=== PATIENT | female | born 1965 | race Caucasian/White ===

== ENCOUNTER 2019-01-21 10:59 | Emergency (ER) | payer SELFPAY ==
[~2019-01-21] VITALS: Ht 172.7 cm; Wt 87.3 kg
[~2019-01-21 10:59] MED LIST: ACHD5005 PO; AMOX500C2 PO; CITA20TA4 PO; CLIN-62 PO; CYCL10TA9 PO; HYDR-2997 PO; NAPR-243 PO
[2019-01-21] MEDS ORDERED: KETOROLAC 30 MG/ML VIAL IVP ONE (11:15)
[2019-01-21] MEDS ORDERED: NS IV 1000 ML 1,000 ML IV SCH (11:15)
[2019-01-21 11:19] LABS: BASOPHILS % (AUTO) 0 % (0-10); EOSINOPHILS # (AUTO) 0.4 10^3/uL (0.0-0.3); EOSINOPHILS % (AUTO) 3 % (0-10); HEMATOCRIT 45 % (35-52); HEMOGLOBIN 15.5 G/DL (11.5-16.0); LYMPHOCYTES # (AUTO) 1.5 X 10^3 (1.0-4.0); LYMPHOCYTES % (AUTO) 10 % (12-44); MEAN CORPUSCULAR HEMOGLOBIN 30 PG (25-34); MEAN CORPUSCULAR HGB CONC 35 G/DL (32-36); MEAN CORPUSCULAR VOLUME 85 FL (80-99); MEAN PLATELET VOLUME 11.1 FL (7.4-10.4); MONOCYTES # (AUTO) 0.8 X 10^3 (0.0-1.0); MONOCYTES % (AUTO) 5 % (0-12); NEUTROPHILS # (AUTO) 12.5 X 10^3 (1.8-7.8); NEUTROPHILS % (AUTO) 82 % (42-75); PLATELET COUNT 186 10^3/uL (130-400); RED CELL DISTRIBUTION WIDTH 12.7 % (10.0-14.5); WHITE BLOOD COUNT 15.2 10^3/uL (4.3-11.0)
--- NOTE | 2019-01-21 11:24 | ED General ---
General Stated Complaint: BODY ACHES ALL OVER Source of Information: Patient Exam Limitations: No Limitations History of Present Illness Date Seen by Provider: Jan 21, 2019 Time Seen by Provider: 11:21 Initial Comments ER with reports of body aches all over for about 3 days. She denies cough runny nose or sore throat but has been taking NyQuil to help herself sleep. She reports chills but has not measured her temperature. Reports low back pain. Also has a tender reddened area to the medial right lower leg that started at the same time as the back pain and body aches. SHe denies any nausea vomiting bowel changes or dysuria. She is a diabetic and supposed to take metformin but doesn't because it makes her nauseous and supposed to take Trulicity but didn' t until 2 weeks ago and states that it is supposed to be refrigerated that she has not been refrigerated. Severity: Moderate Associated Systoms: No Cough, No Diaphoresis; Fever/Chills; No Nausea/Vomiting , No Weakness Allergies and Home Medications Allergies Coded Allergies: Aspirin (Unverified Allergy, Mild, UPSET STOMACH, 01/24/09) Codeine (Unverified Allergy, Mild, HIVES, 01/24/09) Home Medications Cephalexin 500 Mg Capsule, 500 MG PO Q6H Prescribed by: DILSHAD JOINER on 01/21/19 1203 Hydrocodone Bit/Acetaminophen 1 Each Tablet, 1-2 EACH PO Q6H PRN Prescribed by: HAYLEY THAKKAR on 10/04/101946 Patient Home Medication List Home Medication List Reviewed: Yes Review of Systems Review of Systems Constitutional: see HPI, chills, malaise, weakness EENTM: see HPI Respiratory: no symptoms reported Cardiovascular: no symptoms reported Genitourinary: no symptoms reported Musculoskeletal: see HPI, back pain Skin: no symptoms reported Psychiatric/Neurological: No Symptoms Reported Hematologic/Lymphatic: No Symptoms Reported Immunological/Allergic: no symptoms reported Past Sxbspvk-Qboriz-Hfnqhy Hx Patient Social History Recent Foreign Travel: No Contact w/Someone Who Travel: No Physical Exam Vital Signs Vital Signs - First Documented 01/21/19 11:03 Temp 98.9 Pulse 112 Resp 16 B/P (MAP) 161/89 (113) Pulse Ox 98 O2 Delivery Room Air Capillary Refill : Height, Weight, BMI Height: 5'8" Weight: 220lbs. oz. 99.082932yn; BMI Method:Stated General Appearance: No Apparent Distress, WD/WN Eyes: Bilateral Eye Normal Inspection, Bilateral Eye PERRL, Bilateral Eye EOMI HEENT: PERRL/EOMI, TMs Normal Neck: Full Range of Motion, Normal Inspection Respiratory: Normal Breath Sounds, No Accessory Muscle Use, No Respiratory Distress Gastrointestinal: Normal Bowel Sounds, Non Tender, Soft Extremity: Normal Capillary Refill, Other (To the anterior right lower leg is thickening brownish discoloration of the skin. Medial to this is an area of erythema with a few petechiae in the center. No lymphangitis, the area is indurated without fluctuance. Very tender to touch.) Neurologic/Psychiatric: Alert, Oriented x3 Skin: Normal Color, Warm/Dry Progress/Results/Core Measures Suspected Sepsis SIRS Temperature: Pulse: Respiratory Rate: Laboratory Tests 01/21/19 11:13: White Blood Count 15.2H Blood Pressure / Mean: Laboratory Tests 01/21/19 11:13: Platelet Count 186 01/21/19 11:45: Creatinine 0.89, Total Bilirubin 0.6 Results/Orders Lab Results Laboratory Tests Test 01/21/19 11:13 01/21/19 11:28 01/21/19 11:45 Range/Units White Blood Count 15.2 H 4.3-11.0 10^3/uL Red Blood Count 5.24 4.35-5.85 10^6/uL Hemoglobin 15.5 11.5-16.0 G/DL Hematocrit 45 35-52 % Mean Corpuscular Volume 85 80-99 FL Mean Corpuscular Hemoglobin 30 25-34 PG Mean Corpuscular Hemoglobin Concent 35 32-36 G/DL Red Cell Distribution Width 12.7 10.0-14.5 % Platelet Count 186 130-400 10^3/uL Mean Platelet Volume 11.1 H 7.4-10.4 FL Neutrophils (%) (Auto) 82 H 42-75 % Lymphocytes (%) (Auto) 10 L 12-44 % Monocytes (%) (Auto) 5 0-12 % Eosinophils (%) (Auto) 3 0-10 % Basophils (%) (Auto) 0 0-10 % Neutrophils # (Auto) 12.5 H 1.8-7.8 X 10^3 Lymphocytes # (Auto) 1.5 1.0-4.0 X 10^3 Monocytes # (Auto) 0.8 0.0-1.0 X 10^3 Eosinophils # (Auto) 0.4 H 0.0-0.3 10^3/uL Basophils # (Auto) 0.0 0.0-0.1 10^3/uL Neutrophils % (Manual) 88 % Lymphocytes % (Manual) 8 % Monocytes % (Manual) 2 % Band Neutrophils 2 % Dohle Bodies SLIGHT Poikilocytosis MODERATE Tear Drop Cells MODERATE Urine Color YELLOW Urine Clarity CLEAR Urine pH 5 5-9 Urine Specific [place] 1.020 1.016-1.022 Urine Protein 2+ H NEGATIVE Urine Glucose (UA) 4+ H NEGATIVE Urine Ketones NEGATIVE NEGATIVE Urine Nitrite POSITIVE H NEGATIVE Urine Bilirubin NEGATIVE NEGATIVE Urine Urobilinogen 4 H NORMAL MG/DL Urine Leukocyte Esterase 2+ H NEGATIVE Urine RBC (Auto) 3+ H NEGATIVE Urine RBC NONE /HPF Urine WBC 25-50 H /HPF Urine Crystals NONE /LPF Urine Bacteria LARGE H /HPF Urine Casts NONE /LPF Urine Mucus NEGATIVE /LPF Urine Culture Indicated YES Urine Opiates Screen NEGATIVE NEGATIVE Urine Oxycodone Screen NEGATIVE NEGATIVE Urine Methadone Screen NEGATIVE NEGATIVE Urine Propoxyphene Screen NEGATIVE NEGATIVE Urine Barbiturates Screen NEGATIVE NEGATIVE Ur Tricyclic Antidepressants Screen NEGATIVE NEGATIVE Urine Phencyclidine Screen NEGATIVE NEGATIVE Urine Amphetamines Screen POSITIVE H NEGATIVE Urine Methamphetamines Screen POSITIVE H NEGATIVE Urine Benzodiazepines Screen NEGATIVE NEGATIVE Urine Cocaine Screen NEGATIVE NEGATIVE Urine Cannabinoids Screen NEGATIVE NEGATIVE Sodium Level 134 L 135-145 MMOL/L Potassium Level 3.6 3.6-5.0 MMOL/L Chloride Level 100 98-107 MMOL/L Carbon Dioxide Level 21 21-32 MMOL/L Anion Gap 13 5-14 MMOL/L Blood Urea Nitrogen 14 7-18 MG/DL Creatinine 0.89 0.60-1.30 MG/DL Estimat Glomerular Filtration Rate > 60 BUN/Creatinine Ratio 16 Glucose Level 280 H 70-105 MG/DL Calcium Level 9.2 8.5-10.1 MG/DL Corrected Calcium 9.4 8.5-10.1 MG/DL Magnesium Level 1.7 L 1.8-2.4 MG/DL Total Bilirubin 0.6 0.1-1.0 MG/DL Aspartate Amino Transf (AST/SGOT) 20 5-34 U/L Alanine Aminotransferase (ALT/SGPT) 33 0-55 U/L Alkaline Phosphatase 78 40-136 U/L Total Creatine Kinase 27 L 29-168 U/L Total Protein 7.3 6.4-8.2 GM/DL Albumin 3.8 3.2-4.5 GM/DL Micro Results Microbiology 01/21/19 Influenza Types A,B Antigen (ALBERTO) - Final, Complete My Orders Orders - DILSHAD JOINER ENGINE TESTING SUPERVISOR Magnesium (01/21/19 11:04) Cbc With Automated Diff (01/21/19 11:04) Creatine Kinase (01/21/19 11:04) Comprehensive Metabolic Panel (01/21/19 11:04) Ua Culture If Indicated (01/21/19 11:04) Influenza A And B Antigens (01/21/19 11:04) Ns Iv 1000 Ml (Sodium Chloride 0.9%) (01/21/19 11:15) Ketorolac Injection (Toradol Injection) (01/21/19 11:15) Manual Differential (01/21/19 11:13) Chest 1 View, Ap/Pa Only (01/21/19 11:27) Drug Screen Stat (Urine) (01/21/19 11:27) Urine Culture (01/21/19 11:28) Medications Given in ED Current Medications Medications Dose Ordered Sig/Rhonda Route Start Time Stop Time Status Last Admin Dose Admin Ketorolac Tromethamine 15 mg ONCE ONCE IVP 01/21/19 11:15 01/21/19 11:16 DC 01/21/19 11:38 15 MG Vital Signs/I&O 01/21/19 11:03 Temp 98.9 Pulse 112 Resp 16 B/P (MAP) 161/89 (113) Pulse Ox 98 O2 Delivery Room Air Capillary Refill : Departure Impression Primary Impression: Cellulitis of right leg Disposition: HOME, SELF-CARE Condition: Stable Departure-Patient Inst. Decision time for Depature: 12:01 Referrals: SYLVIA HARGROVE MD (PCP) Primary Care Physician [facility] (Family) Primary Care Physician Patient Instructions: Cellulitis (Skin Infection), Adult (DC) Add. Discharge Instructions: 1. Antibiotics as directed 2. Return to ER for any concerns 3. See her doctor on Wednesday for recheck. Scripts Cephalexin (Keflex) 500 Mg Capsule 500 MG PO Q6H, #28 CAP . Prov: DILSHAD JOINER APRN 01/21/19 DILSHAD JOINER APRN Jan 21, 2019 11:24
[2019-01-21 11:35] LABS: BAND NEUTROPHILS 2 %; LYMPHOCYTES % (MANUAL) 8 %; MONOCYTES % (MANUAL) 2 %; NEUTROPHILS % (MANUAL) 88 %
[2019-01-21 11:36] LABS: POIKILOCYTOSIS MODERATE; TEAR DROP CELLS MODERATE
[2019-01-21 11:37] LABS: BILIRUBIN,URINE NEGATIVE (NEGATIVE); CLARITY,URINE CLEAR; COLOR,URINE YELLOW; GLUCOSE, URINE (UA) 4+ (NEGATIVE); KETONES,URINE NEGATIVE (NEGATIVE); LEUKOCYTE ESTERASE ,URINE 2+ (NEGATIVE); NITRITE,URINE POSITIVE (NEGATIVE); PH,URINE 5 (5-9); PROTEIN,URINE 2+ (NEGATIVE); UROBILINOGEN,URINE 4 MG/DL (NORMAL)
--- NOTE | 2019-01-21 11:45 | NUR ---
HEALTHCARE ANALYST IN PATIENT'S ROOM DRAWING BLOOD.
[2019-01-21 11:53] LABS: AMPHETAMINE SCREEN, URINE POSITIVE (NEGATIVE); BARBITURATE SCREEN URINE NEGATIVE (NEGATIVE); BENZODIAZEPINES SCREEN URINE NEGATIVE (NEGATIVE); CANNABINOID SCREEN, URINE NEGATIVE (NEGATIVE); COCAINE SCREEN URINE NEGATIVE (NEGATIVE); METHADONE STAT NEGATIVE (NEGATIVE); METHAMPHETAMINE SCREEN URINE S POSITIVE (NEGATIVE); OPIATE SCREEN URINE NEGATIVE (NEGATIVE); OXYCODONE STAT NEGATIVE (NEGATIVE); PROPOXYPHENE STAT NEGATIVE (NEGATIVE); TRICYCLIC ANTIDEPRESSANTS SCRE NEGATIVE (NEGATIVE)
--- NOTE | 2019-01-21 11:59 | Diagnostic Imaging Report ---
Patient History: Fever, chills. Technique: Single frontal view of the chest Comparison: 10/20/2011 FINDINGS: The lung volumes are normal. No focal consolidation is seen. No large pleural effusion or pneumothorax is seen. The cardiomediastinal silhouette is normal in size and contour. No acute osseous abnormality is seen. IMPRESSION: No acute pulmonary abnormality seen. Dictated by: Dictated on workstation # [id number]
[2019-01-21] MEDS ORDERED: CEPH-507 PO ×2 (12:03→12:25)
[2019-01-21 12:16] LABS: WBC,URINE 25-50 /HPF
[2019-01-21 12:16] LABS: ALANINE AMINOTRANSFERASE 33 U/L (0-55); ALBUMIN 3.8 GM/DL (3.2-4.5); ALKALINE PHOSPHATASE 78 U/L (40-136); BILIRUBIN,TOTAL 0.6 MG/DL (0.1-1.0); BUN/CREATININE RATIO 16; CALCIUM 9.2 MG/DL (8.5-10.1); CARBON DIOXIDE 21 MMOL/L (21-32); CHLORIDE 100 MMOL/L (98-107); CREATINE KINASE 27 U/L (29-168); CREATININE SERUM 0.89 MG/DL (0.60-1.30); GFR ESTIMATED > 60; GLUCOSE 280 MG/DL (70-105); MAGNESIUM 1.7 MG/DL (1.8-2.4); POTASSIUM 3.6 MMOL/L (3.6-5.0); SODIUM 134 MMOL/L (135-145); TOTAL PROTEIN 7.3 GM/DL (6.4-8.2)
[2019-01-21 12:17] LABS: BACTERIA,URINE LARGE /HPF
[2019-01-21 12:39] VITALS: BP 139/80
[2019-01-25] MEDS ORDERED: SULF1TAB35 PO (09:33)
[2019-01-25] MEDS ORDERED: ACHD5005 PO (09:33)
== END 2019-01-21 12:41 | disposition home or self-care (01) ==
LOC: EDUNIT# 10:59 → ER 11:01
DX: L03.115 Cellulitis of right lower limb (principal); Z88.6 Allergy status to analgesic agent; Z88.5 Allergy status to narcotic agent
CPT/HCPCS: 36415; 71045; 80053; 80306; 81000; 82550; 83735; 85007; 85027; 87077; 87088; 87186; 87804; 96361; 96374

== ENCOUNTER 2019-01-23 12:28 | Inpatient (IN) | payer SELFPAY ==
[~2019-01-23] VITALS: Ht 172.7 cm; Wt 87.1 kg
[~2019-01-23 12:28] MED LIST changes: +CEPH-507 PO
[2019-01-23] MEDS ORDERED: ACETAMINOPHEN 500 MG TAB (TYLENOL) PO PRN (12:45)
[2019-01-23] MEDS ORDERED: LOPERAMIDE 2 MG (IMODIUM) CAP PO PRN (12:45)
[2019-01-23] MEDS ORDERED: MELATONIN 3 MG TABLET PO PRN (12:45)
[2019-01-23] MEDS ORDERED: diphenhydrAMINE 25 MG TAB (BENADRYL) PO PRN (12:45)
[2019-01-23] MEDS ORDERED: DOCUSATE SODIUM 100 MG (COLACE) CAP PO PRN (12:45)
[2019-01-23] MEDS ORDERED: ALPRAZolam 0.25 MG (XANAX) TAB PO PRN (12:45)
[2019-01-23] MEDS ORDERED: ONDANSETRON 4 MG/2 ML (SDV) Z0FRAN IVP PRN (12:45)
[2019-01-23] MEDS ORDERED: VANCOMYCIN INJECTION 0.1 MG in NS (IVPB) 250 ML IV SCH (12:45)
[2019-01-23] MEDS ORDERED: CALCIUM CARBONATE 500 MG (TUMS) TAB.CHEW PO PRN (12:45)
[2019-01-23] MEDS ORDERED: fentaNYL INJECTION 100 MCG/2 ML AMP IVP PRN (12:45)
--- NOTE | 2019-01-23 13:20 | History & Physical-Hospitalist ---
History of Present Illness HPI/Chief Complaint CC: Right lower extremity redness and edema HPI: This is a 53yoWF clinic patient of Dr Jazmine Sanders at [facility] who was directly admitted to room 411 in need of right lower extremity cellulitis inpatient management due to failed outpatient PO abx given in ER Wednesday. She has out of control diabetes and reported the redness was going up her leg for the past 24 hours. She was given Keflex 500mg PO QID in ER on Wednesday but worsened to the point of not being able to ambulate. Patient reported subjective fever. Patient non-compliant with most medical treatment and has a h/ o meth abuse. USG was ordered along with Dr Olson consultation in case abscess had formed and needed I&D. Source: patient Exam Limitations: no limitations Date Seen 01/23/19 Time Seen by a Provider: 13:15 Attending Physician Debi Gray Julie A MD Referring Physician Date of Admission Home Medications & Allergies Home Medications Reviewed patient Home Medication Reconciliation performed by pharmacy medication reconciliations alarm technician and/or nursing. Patients Allergies have been reviewed. Allergies Allergies Coded Allergies aspirin (Unverified Allergy, Mild, UPSET STOMACH, 01/24/09) codeine (Unverified Allergy, Mild, HIVES, 01/24/09) Past Lgbdqwe-Zfqjmd-Wgpkax Hx Past Med/Social Hx: Reviewed Nursing Past Med/Soc Hx, Reviewed and Corrections made Patient Social History Marrital Status: cohabiting Employed/Student: unemployed Alcohol Use: Denies Use Smoking Status: Current Everyday Smoker Type Used: Cigarettes 2nd Hand Smoke Exposure: Yes Recent Hopitalizations: No Immunizations Up To Date Pediatric: Yes Seasonal Allergies Seasonal Allergies: No Past Medical History Hysterectomy Endocrine: Diabetes, Non-Insulin dep Cancer: Cervical Did You Recieve Any Treatments: Yes What Type of Treatment Did You: Chemotherapy History of Blood Disorders: No Review of Systems Constitutional: see HPI, dizziness, fever EENTM: no symptoms reported Respiratory: no symptoms reported Cardiovascular: no symptoms reported Gastrointestinal: no symptoms reported Genitourinary: no symptoms reported Musculoskeletal: muscle pain Skin: see HPI, change in color, rash Psychiatric/Neurological: No Symptoms Reported All Other Systems Reviewed Negative Unless Noted: Yes Physical Exam Physical Exam Vital Signs Vital Signs - First Documented 01/23/19 01/23/19 13:37 16:00 Temp 99.3 Pulse 103 Resp 18 B/P (MAP) 137/95 Pulse Ox 99 O2 Delivery Room Air Capillary Refill : Height, Weight, BMI Height: 5'8.00" Weight: 192lbs. 8.0oz. 87.613240uu; BMI Method:Actual General Appearance: No Apparent Distress, WD/WN, Chronically ill Eyes: Right Eye Normal Inspection, Right Eye PERRL HEENT: PERRL/EOMI, Normal ENT Inspection, Pharynx Normal, Moist Mucous Membranes Neck: Full Range of Motion, Normal Inspection, Non Tender Respiratory: Chest Non Tender, Lungs Clear, Normal Breath Sounds, No Accessory Muscle Use, No Respiratory Distress Cardiovascular: Regular Rate, Rhythm, No Edema, No Gallop, No JVD, No Murmur, Normal Peripheral Pulses Gastrointestinal: Normal Bowel Sounds, No Organomegaly, No Pulsatile Mass, Non Tender, Soft Back: Normal Inspection, No CVA Tenderness, No Vertebral Tenderness Extremity: Normal Capillary Refill, Normal Inspection, Normal Range of Motion ( except right leg due to edema), Non Tender, No Calf Tenderness, No Pedal Edema Neurologic/Psychiatric: Alert, Oriented x3, No Motor/Sensory Deficits, Normal Mood/Affect Skin: Normal Color, Warm/Dry, Rash (right lower leg with lymphangitis) Lymphatic: No Adenopathy Results Results/Procedures Labs Laboratory Tests 01/23/19 14:37 Patient resulted labs reviewed. Assessment/Plan Admission Diagnosis Assessment: Right leg cellulitis failed outpatient Keflex Sepsis Smoker DM OOC Meth use Plan: IV abx Dr Olson consultation Check USG to r/o DVT and abscess Pain meds UDS Accuchecks Admission Status: Inpatient Order (span 2 midnights) Reason for Inpatient Admission: Failed PO abx will require 4 days Diagnosis/Problems Diagnosis/Problems (1) Cellulitis of right leg (2) Sepsis Status: Acute Qualifiers: Sepsis type: sepsis due to unspecified organism Qualified Codes: A41.9 - Sepsis, unspecified organism (3) Smoker Status: Chronic (4) Leucocytosis Status: Acute Qualifiers: Leukocytosis type: leukemoid reaction Qualified Codes: D72.823 - Leukemoid reaction (5) Diabetes mellitus Status: Chronic Qualifiers: Diabetes mellitus type: type 2 Diabetes mellitus termite control technician insulin use: without termite control technician use Diabetes mellitus complication status: without complication Qualified Codes: E11.9 - Type 2 diabetes mellitus without complications (6) Methamphetamine use Status: Acute Clinical Quality Measures DVT/VTE Risk/Contraindication: Contraindications-Mechi: Other *list below* Other: venous stasis dermatitis with cellulitis of leg DEBI GRAY DO Jan 23, 2019 13:20
--- OUTSIDE RECORDS SUMMARY | 2019-01-23 13:26 | XMS REPORT | Continuity of Care Document ---
Author Organization Unknown Address Unknown Allergies Active Description Code Type Severity Reaction Onset Reported/Identified Relationship to Patient Clinical Status Yes aspirin [id number] Drug Allergy Mild UPSET STOMACH 01/24/2009 Yes codeine [id number] Drug Allergy Mild HIVES 01/24/2009 Yes aspirin Drug Allergy N/A N/A 01/08/2010 Yes codeine Drug Allergy N/A N/A 01/08/2010 Yes aspirin Drug Allergy 01/08/2010 Yes codeine Drug Allergy 01/08/2010 Medications There is no data. Problems Date Dx Coded Attending Type Code Diagnosis Diagnosed By 01/08/2010 473.0 Chronic Sinusitis, Maxillary 01/08/2010 SYLVIA HARGROVE MD 473.0 Chronic Sinusitis, Maxillary 01/08/2010 473.0 Chronic Sinusitis, Maxillary 01/08/2010 473.0 Chronic Sinusitis, Maxillary 01/08/2010 SYLVIA HARGROVE MD 473.0 Chronic Sinusitis, Maxillary 01/30/2010 V72.31 Routine Gynecological Examination 01/30/2010 SYLVIA HARGROVE MD V72.31 Routine Gynecological Examination 01/30/2010 V72.31 Routine Gynecological Examination 01/30/2010 V72.31 Routine Gynecological Examination 01/30/2010 SYLVIA HARGROVE MD V72.31 Routine Gynecological Examination 02/07/2010 709.9 Skin Lesions 02/07/2010 SYLVIA HARGROVE MD 709.9 Skin Lesions 02/07/2010 709.9 Skin Lesions 02/07/2010 709.9 Skin Lesions 02/07/2010 SYLVIA HARGROVE MD 709.9 Skin Lesions 02/18/2010 V58.32 Suture Removal 02/18/2010 SYLVIA HARGROVE MD V58.32 Suture Removal 02/18/2010 V58.32 Suture Removal 02/18/2010 V58.32 Suture Removal 02/18/2010 SYLVIA HARGROVE MD V58.32 Suture Removal 06/04/2010 350.1 Trigeminal Neuralgia 06/04/2010 SYLVIA HARGROVE MD 350.1 Trigeminal Neuralgia 06/04/2010 350.1 Trigeminal Neuralgia 06/04/2010 350.1 Trigeminal Neuralgia 06/04/2010 SYLVIA HARGROVE MD 350.1 Trigeminal Neuralgia 07/16/2010 110.5 Tinea Corporis 07/16/2010 682.9 Cellulitis And Abscess Of Unspecified Sites 07/16/2010 SYLVIA HARGROVE MD 110.5 Tinea Corporis 07/16/2010 SYLVIA HARGROVE MD 682.9 Cellulitis And Abscess Of Unspecified Sites 07/16/2010 110.5 Tinea Corporis 07/16/2010 682.9 Cellulitis And Abscess Of Unspecified Sites 07/16/2010 110.5 Tinea Corporis 07/16/2010 682.9 Cellulitis And Abscess Of Unspecified Sites 07/16/2010 SYLVIA HARGROVE MD 110.5 Tinea Corporis 07/16/2010 SYLVIA HARGROVE MD 682.9 Cellulitis And Abscess Of Unspecified Sites 07/30/2010 782.3 Edema 07/30/2010 SYLVIA HARGROVE MD 782.3 Edema 07/30/2010 782.3 Edema 07/30/2010 782.3 Edema 07/30/2010 SYLVIA HARGROVE MD 782.3 Edema 09/12/2010 311 DEPRESSIVE DISORDER NOT ELSEWHERE CLASSIFIED 09/12/2010 511.0 Pleurisy Without Effusion Or Current Tuberculosis 09/12/2010 705.81 DYSHIDROSIS 09/12/2010 SYLVIA HARGROVE MD 311 DEPRESSIVE DISORDER NOT ELSEWHERE CLASSIFIED 09/12/2010 SYLVIA HARGROVE MD 511.0 Pleurisy Without Effusion Or Current Tuberculosis 09/12/2010 SYLVIA HARGROVE MD 705.81 DYSHIDROSIS 09/12/2010 311 DEPRESSIVE DISORDER NOT ELSEWHERE CLASSIFIED 09/12/2010 511.0 Pleurisy Without Effusion Or Current Tuberculosis 09/12/2010 705.81 DYSHIDROSIS 09/12/2010 311 DEPRESSIVE DISORDER NOT ELSEWHERE CLASSIFIED 09/12/2010 511.0 Pleurisy Without Effusion Or Current Tuberculosis 09/12/2010 705.81 DYSHIDROSIS 09/12/2010 SYLVIA HARGROVE MD 311 DEPRESSIVE DISORDER NOT ELSEWHERE CLASSIFIED 09/12/2010 SYLVIA HARGROVE MD 511.0 Pleurisy Without Effusion Or Current Tuberculosis 09/12/2010 SYLVIA HARGROVE MD 705.81 DYSHIDROSIS 10/10/2010 053.9 Herpes Zoster Nos 10/10/2010 SYLVIA HARGROVE MD 053.9 Herpes Zoster Nos 10/10/2010 053.9 Herpes Zoster Nos 10/10/2010 053.9 Herpes Zoster Nos 10/10/2010 SYLVIA HARGROVE MD 053.9 Herpes Zoster Nos 10/27/2010 692.9 Contact Dermatitis And Other Eczema Unspecified Cause 10/27/2010 SYLVIA HARGROVE MD 692.9 Contact Dermatitis And Other Eczema Unspecified Cause 10/27/2010 692.9 Contact Dermatitis And Other Eczema Unspecified Cause 10/27/2010 692.9 Contact Dermatitis And Other Eczema Unspecified Cause 10/27/2010 SYLVIA HARGROVE MD 692.9 Contact Dermatitis And Other Eczema Unspecified Cause 11/10/2010 462 Acute Pharyngitis 11/10/2010 SYLVIA HARGROVE MD 462 Acute Pharyngitis 11/10/2010 462 Acute Pharyngitis 11/10/2010 462 Acute Pharyngitis 11/10/2010 SYLVIA HARGROVE MD 462 Acute Pharyngitis 12/30/2010 477.9 Allergic Rhinitis Cause Unspecified 12/30/2010 708.8 Other Specified Urticaria 12/30/2010 SYLVIA HARGROVE MD 477.9 Allergic Rhinitis Cause Unspecified 12/30/2010 SYLVIA HARGROVE MD 708.8 Other Specified Urticaria 12/30/2010 477.9 Allergic Rhinitis Cause Unspecified 12/30/2010 708.8 Other Specified Urticaria 12/30/2010 477.9 Allergic Rhinitis Cause Unspecified 12/30/2010 708.8 Other Specified Urticaria 12/30/2010 SYLVIA HARGROVE MD 477.9 Allergic Rhinitis Cause Unspecified 12/30/2010 SYLVIA HARGROVE MD 708.8 Other Specified Urticaria 03/31/2011 723.1 neck pain 03/31/2011 SYLVIA HARGROVE MD 723.1 neck pain 03/31/2011 723.1 neck pain 03/31/2011 723.1 neck pain 03/31/2011 SYLVIA HARGROVE MD 723.1 neck pain 09/10/2011 133.0 SCABIES 09/10/2011 715.04 OSTEOARTHROSIS GENERALIZED INVOLVING HAND 09/10/2011 SYLVIA HARGROVE MD 133.0 Scabies 09/10/2011 SYLVIA HARGROVE MD 715.04 OSTEOARTHROSIS GENERALIZED INVOLVING HAND 09/10/2011 133.0 Scabies 09/10/2011 715.04 OSTEOARTHROSIS GENERALIZED INVOLVING HAND 09/10/2011 133.0 Scabies 09/10/2011 715.04 OSTEOARTHROSIS GENERALIZED INVOLVING HAND 09/10/2011 SYLVIA HARGROVE MD 133.0 Scabies 09/10/2011 SYLVIA HARGROVE MD 715.04 OSTEOARTHROSIS GENERALIZED INVOLVING HAND 10/23/2011 466.0 Acute Bronchitis 10/23/2011 SYLVIA HARGROVE MD 466.0 Acute Bronchitis 10/23/2011 466.0 Acute Bronchitis 10/23/2011 466.0 Acute Bronchitis 10/23/2011 SYLVIA HARGROVE MD 466.0 Acute Bronchitis 05/10/2012 380.4 CERUMEN IMPACTION 05/10/2012 SYLVIA HARGROVE MD 380.4 Cerumen Impaction 05/10/2012 380.4 Cerumen Impaction 05/10/2012 380.4 Cerumen Impaction 05/10/2012 SYLVIA HARGROVE MD 380.4 Cerumen Impaction 10/14/2012 465.9 UPPER RESPIRATORY INFECTION 10/14/2012 786.2 cough 10/14/2012 SYLVIA HARGROVE MD 465.9 Upper Respiratory Infection 10/14/2012 SYLVIA HARGROVE MD 786.2 Cough 10/14/2012 465.9 Upper Respiratory Infection 10/14/2012 786.2 Cough 10/14/2012 465.9 Upper Respiratory Infection 10/14/2012 786.2 Cough 10/14/2012 SYLVIA HARGROVE MD 465.9 Upper Respiratory Infection 10/14/2012 SYLVIA HARGROVE MD 786.2 Cough 12/23/2012 SYLVIA HARGROVE MD 782.3 EDEMA 12/23/2012 SYLVIA HARGROVE MD 786.09 RESPIRATORY ABNORMALITY OTHER 12/23/2012 782.3 EDEMA 12/23/2012 786.09 RESPIRATORY ABNORMALITY OTHER 12/23/2012 782.3 EDEMA 12/23/2012 786.09 RESPIRATORY ABNORMALITY OTHER 12/23/2012 SYLVIA HARGROVE MD 782.3 EDEMA 12/23/2012 SYLVIA HARGROVE MD 786.09 RESPIRATORY ABNORMALITY OTHER 02/03/2013 244.9 UNSPECIFIED ACQUIRED HYPOTHYROIDISM 02/03/2013 716.90 UNSPECIFIED ARTHROPATHY SITE UNSPECIFIED 02/03/2013 SYLVIA HARGROVE MD 244.9 UNSPECIFIED ACQUIRED HYPOTHYROIDISM 02/03/2013 SYLVIA HARGROVE MD 716.90 UNSPECIFIED ARTHROPATHY SITE UNSPECIFIED 02/27/2014 SYLVIA HARGROVE MD 727.67 NONTRAUMATIC RUPTURE OF ACHILLES TENDON 06/13/2014 KATHLEEN ANTOINE Ot 521.00 UNSPEC DENTAL CARIES 06/13/2014 KATHLEEN ANTOINE Ot 522.5 PERIAPICAL ABSCESS Procedures Code Description [place] [address] ROUTINE VENIPUNCTURE 12/27/2012 28201 CMP 12/27/2012 7204424 GFR CALC (RESULT ONLY) 12/27/2012 74143 TSH 12/27/2012 30918 BNP 12/27/2012 53676 ROUTINE VENIPUNCTURE 01/23/2013 38597 TSH 01/23/2013 Orthopedi Reveal, Philippe 02/27/2014 Results Test Result Range Complete blood count (CBC) with automated white blood cell (WBC) differential - 01/21/19 11:13 Blood leukocytes automated count (number/volume) 15.2 10*3/uL 4.3-11.0 Blood erythrocytes automated count (number/volume) 5.24 10*6/uL 4.35-5.85 Venous blood hemoglobin measurement (mass/volume) 15.5 g/dL 11.5-16.0 Blood hematocrit (volume fraction) 45 % 35-52 Automated erythrocyte mean corpuscular volume 85 [foz_us] 80-99 Automated erythrocyte mean corpuscular hemoglobin (mass per erythrocyte) 30 pg 25-34 Automated erythrocyte mean corpuscular hemoglobin concentration measurement ( mass/volume) 35 g/dL 32-36 Automated erythrocyte distribution width ratio 12.7 % 10.0-14.5 Automated blood platelet count (count/volume) 186 10*3/uL 130-400 Automated blood platelet mean volume measurement 11.1 [foz_us] 7.4-10.4 Automated blood neutrophils/100 leukocytes 82 % 42-75 Automated blood lymphocytes/100 leukocytes 10 % 12-44 Blood monocytes/100 leukocytes 5 % 0-12 Automated blood eosinophils/100 leukocytes 3 % 0-10 Automated blood basophils/100 leukocytes 0 % 0-10 Blood neutrophils automated count (number/volume) 12.5 10*3 1.8-7.8 Blood lymphocytes automated count (number/volume) 1.5 10*3 1.0-4.0 Blood monocytes automated count (number/volume) 0.8 10*3 0.0-1.0 Automated eosinophil count 0.4 10*3/uL 0.0-0.3 Automated blood basophil count (count/volume) 0.0 10*3/uL 0.0-0.1 Blood manual differential performed detection - 01/21/19 11:13 Blood monocytes/100 leukocytes 2 % NRG Manual blood segmented neutrophils/100 leukocytes 88 % NRG Blood band neutrophils/100 leukocytes 2 % NRG Manual blood lymphocytes/100 leukocytes 8 % NRG Blood dohle body detection by light microscopy SLIGHT NRG Blood poikilocytosis detection by light microscopy MODERATE NRG Blood dacrocytes detection by light microscopy MODERATE NRG Influenza virus A and B antigen detection - 01/21/19 11:24 FLU RESULT NEGATIVE FOR INFLUENZA A AND B ANTIGENS BY IA NRG Urine drug screening test - 01/21/19 11:28 Urine phencyclidine detection by screening method NEGATIVE NEGATIVE Urine benzodiazepines detection by screening method NEGATIVE NEGATIVE Urine cocaine detection NEGATIVE NEGATIVE Urine amphetamines detection by screening method POSITIVE NEGATIVE Urine methamphetamine detection by screening method POSITIVE NEGATIVE Urine cannabinoids detection by screening method NEGATIVE NEGATIVE Urine opiates detection by screening method NEGATIVE NEGATIVE Urine barbiturates detection NEGATIVE NEGATIVE Screening urine tricyclic antidepressants detection NEGATIVE NEGATIVE Urine methadone detection by screening method NEGATIVE NEGATIVE Urine oxycodone detection NEGATIVE NEGATIVE Urine propoxyphene detection NEGATIVE NEGATIVE Complete urinalysis with reflex to culture - 01/21/19 11:28 Urine color determination YELLOW NRG Urine clarity determination CLEAR NRG Urine pH measurement by test strip 5 5-9 Specific gravity of urine by test strip 1.020 1.016- 1.022 Urine protein assay by test strip, semi-quantitative 2+ NEGATIVE Urine glucose detection by automated test strip 4+ NEGATIVE Erythrocytes detection in urine sediment by light microscopy 3+ NEGATIVE Urine ketones detection by automated test strip NEGATIVE NEGATIVE Urine nitrite detection by test strip POSITIVE NEGATIVE Urine total bilirubin detection by test strip NEGATIVE NEGATIVE Urine urobilinogen measurement by automated test strip (mass/volume) 4 mg/dL NORMAL Urine leukocyte esterase detection by dipstick 2+ NEGATIVE Automated urine sediment erythrocyte count by microscopy (number/high power field) NONE NRG Automated urine sediment leukocyte count by microscopy (number/high power field ) [HPF] NRG Bacteria detection in urine sediment by light microscopy LARGE NRG Crystals detection in urine sediment by light microscopy NONE NRG Casts detection in urine sediment by light microscopy NONE NRG Mucus detection in urine sediment by light microscopy NEGATIVE NRG Complete urinalysis with reflex to culture YES NRG Bacterial urine culture - 01/21/19 11:28 Bacterial urine culture [id number] NRG COLONY COUNT >100,000/ML NRG Comprehensive metabolic panel - 01/21/19 11:45 Serum or plasma sodium measurement (moles/volume) 134 mmol/L 135-145 Serum or plasma potassium measurement (moles/volume) 3.6 mmol/L 3.6-5.0 Serum or plasma chloride measurement (moles/volume) 100 mmol/L 98-107 Carbon dioxide 21 mmol/L 21-32 Serum or plasma anion gap determination (moles/volume) 13 mmol/L 5-14 Serum or plasma urea nitrogen measurement (mass/volume) 14 mg/dL 7-18 Serum or plasma creatinine measurement (mass/volume) 0.89 mg/dL 0.60-1.30 Serum or plasma urea nitrogen/creatinine mass ratio 16 NRG Serum or plasma creatinine measurement with calculation of estimated glomerular filtration rate > NRG Serum or plasma glucose measurement (mass/volume) 280 mg/dL 70-105 Serum or plasma calcium measurement (mass/volume) 9.2 mg/dL 8.5-10.1 Serum or plasma total bilirubin measurement (mass/volume) 0.6 mg/dL 0.1-1.0 Serum or plasma alkaline phosphatase measurement (enzymatic activity/volume) 78 U/L 40-136 Serum or plasma aspartate aminotransferase measurement (enzymatic activity/ volume) 20 U/L 5-34 Serum or plasma alanine aminotransferase measurement (enzymatic activity/volume ) 33 U/L 0-55 Serum or plasma protein measurement (mass/volume) 7.3 g/dL 6.4-8.2 Serum or plasma albumin measurement (mass/volume) 3.8 g/dL 3.2-4.5 CALCIUM CORRECTED 9.4 mg/dL 8.5-10.1 Magnesium - 01/21/19 11:45 Magnesium 1.7 mg/dL 1.8-2.4 Serum or plasma creatine kinase measurement (enzymatic activity/volume) - 01/21 11:45 Serum or plasma creatine kinase measurement (enzymatic activity/volume) 27 U/L 29-168 Encounters ACCT No. Visit Date/Time Discharge Status Pt. Type Provider Facility Loc./Unit Complaint [id number] 02/27/2014 11:33:00 02/27/2014 23:59:59 CLS Outpatient SYLVIA HARGROVE MD [id number] 12/27/2012 10:37:00 12/27/2012 23:59:59 CLS Outpatient SYLVIA HARGROVE MD [id number] 10/14/2012 15:45:00 10/14/2012 23:59:59 CLS Outpatient [id number] 02/03/2013 10:40:00 Document Registration [id number] 01/23/2013 10:43:00 Document Registration [id number] 01/21/2019 11:01:00 01/21/2019 12:41:00 DIS Emergency DILSHAD JOINER APRN [facility] ER BODY ACHES ALL OVER [id number] 03/31/2018 11:30:00 03/31/2018 23:59:59 CLS Preadmit MIKO KING APRN [facility] RAD ENCOUNTER FOR WELL WOMEN EXAM WITH ROUTINE [id number] 06/13/2014 21:29:00 06/13/2014 22:21:00 DIS Emergency KATHLEEN ANTOINE [facility] ER ABCESSED TOOTH [id number] 01/23/2019 13:10:00 ACT Inpatient EDDIE CHAND DO [facility] 4TH CELLULITIS R LEG
[2019-01-23 13:37] VITALS: BP 137/95
[2019-01-23] MEDS ORDERED: PIPERACILLIN/TAZO 4.5 GM/NS 100 ML IV NR ×2 (13:45)
[2019-01-23] MEDS ORDERED: DULA0.75 SQ (14:13)
[2019-01-23] MEDS ORDERED: VANCOMYCIN 1500 MG/NS 500 ML IVPB IV NR ×2 (14:15)
[2019-01-23] MEDS ORDERED: [UNRECOGNIZED DRUG - CODE] PO (14:16)
--- NOTE | 2019-01-23 14:17 | NUR ---
SPOKE WITH THE PATIENT ABOUT HER MEDICATIONS. SHE STATES SHE HAS BEEN TAKING THE KEFLEX THAT SHE FILLED AT [facility] FROM THE ED AND SHE GETS TRULICITY THROUGH PALS AT [facility]. SHE STATES SHE WAS ALSO TAKING A MENSTRUAL RELIEF TABLET OTC NEEDED FOR HER FEVER BECAUSE IT HAD TYLENOL IN IT.
[2019-01-23 14:54] LABS: BASOPHILS % (AUTO) 0 % (0-10); EOSINOPHILS % (AUTO) 0 % (0-10); HEMATOCRIT 39 % (35-52); HEMOGLOBIN 13.8 G/DL (11.5-16.0); LYMPHOCYTES # (AUTO) 1.6 X 10^3 (1.0-4.0); LYMPHOCYTES % (AUTO) 14 % (12-44); MEAN CORPUSCULAR HEMOGLOBIN 30 PG (25-34); MEAN CORPUSCULAR HGB CONC 35 G/DL (32-36); MEAN CORPUSCULAR VOLUME 85 FL (80-99); MEAN PLATELET VOLUME 10.2 FL (7.4-10.4); MONOCYTES # (AUTO) 0.8 X 10^3 (0.0-1.0); MONOCYTES % (AUTO) 7 % (0-12); NEUTROPHILS # (AUTO) 9.2 X 10^3 (1.8-7.8); NEUTROPHILS % (AUTO) 79 % (42-75); PLATELET COUNT 307 10^3/uL (130-400); RED CELL DISTRIBUTION WIDTH 12.6 % (10.0-14.5); WHITE BLOOD COUNT 11.7 10^3/uL (4.3-11.0)
[2019-01-23 15:11] LABS: ALANINE AMINOTRANSFERASE 34 U/L (0-55); ALBUMIN 3.9 GM/DL (3.2-4.5); ALKALINE PHOSPHATASE 80 U/L (40-136); BILIRUBIN,TOTAL 0.6 MG/DL (0.1-1.0); BUN/CREATININE RATIO 17; CALCIUM 9.7 MG/DL (8.5-10.1); CARBON DIOXIDE 25 MMOL/L (21-32); CHLORIDE 97 MMOL/L (98-107); CREATININE SERUM 0.82 MG/DL (0.60-1.30); GFR ESTIMATED > 60; GLUCOSE 179 MG/DL (70-105); POTASSIUM 3.4 MMOL/L (3.6-5.0); SODIUM 135 MMOL/L (135-145); TOTAL PROTEIN 7.8 GM/DL (6.4-8.2)
[2019-01-23] MEDS: NS IV 1000 ML 1,000 ML IV SCH (15:32)
--- NOTE | 2019-01-23 15:36 | Consultation ---
History of Present Illness History of Present Illness Patient Consulted On(zay/time) 01/23/19 15:30 Time Seen by Provider: 15:17 History of Present Illness Surgery asked to consult regarding Cellulitis of RLE. HPI: pt states this started on Wednesday evening and has not gotten any better. Pt describes dull achey pain with occasional sharp pain and rates it as 5-6 out of 10. She is being admitted because she has failed outpt antibiotics and treatment. She has noticed a red streak going all the way up medial aspect of thigh into groin. Has history of venous stasis changes. She denies any trauma to the area or bug bites. Allergies and Home Medications Allergies Coded Allergies: aspirin (Unverified Allergy, Mild, UPSET STOMACH, 01/24/09) codeine (Unverified Allergy, Mild, HIVES, 01/24/09) Home Medications Acetaminophn/Pyril Mal/Caffein 1 Each Tablet, 1 TAB PO Q6H PRN for PAIN-MILD, ( Reported) Cephalexin 500 Mg Capsule, 500 MG PO Q6H . Prescribed by: DILSHAD JOINER on 01/21/19 1225 Dulaglutide 0.75 Mg/0.5 Ml Pen.injctr, 0.75 MG SQ Fr, (Reported) Patient Home Medication List Home Medication List Reviewed: Yes Past Vdwvvci-Xrwzjt-Zbyefy Hx Patient Social History Alcohol Use: Rarely Uses Recreational Drug Use: No Drug of Choice: ??? 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 Genitourinary History of Genitourinary Disor: No Gastrointestinal History of Gastrointestinal Di: No Musculoskeletal History of Musculoskeletal Dis: No Endocrine History of Endocrine Disorders: Yes Endocrine Disorders: Diabetes, Non-Insulin dep HEENT History of HEENT Disorders: No Cancer History of Cancer: Yes Cancer: Cervical Psychosocial History of Psychiatric Problem: No Integumentary History of Skin or Integumenta: No Blood Transfusions History of Blood Disorders: No Family Medical History Significant Family History: Heart Disease (mother), Diabetes (mother), Hypertension (mother) Review of Systems-General Constitutional: chills, diaphoresis, fever, malaise EENTM: No blurred vision, No double vision, No mouth pain, No mouth swelling, No epistaxis Respiratory: No cough, No dyspnea on exertion Cardiovascular: No chest pain, No edema, No palpitations Gastrointestinal: No abdominal pain, No diarrhea, No hematemesis, No nausea, No vomiting Genitourinary: No dysuria, No frequency, No hematuria Musculoskeletal: muscle stiffness, muscle cramps, other (pain with weight bearing in right leg) Skin: see HPI, lesions (psoriasis) Psychiatric/Neurological: Denies Anxiety, Denies Depressed, Denies Paresthesia , Denies Seizure Other pt denies any abnormal bleeding or bruising Physical Exam-General Problems Physical Exam Vital Signs Vital Signs - First Documented 01/23/19 13:37 Temp 99.3 Pulse 103 Resp 18 B/P (MAP) 137/95 O2 Delivery Room Air Capillary Refill : General Appearance: WD/WN, no apparent distress Eyes: Bilateral Eye PERRL, Bilateral Eye EOMI HEENT: pharynx normal; No scleral icterus (R), No scleral icterus (L) Neck: non-tender, full range of motion, supple Respiratory: chest non-tender, lungs clear, normal breath sounds, no respiratory distress, no accessory muscle use Cardiovascular: regular rate, rhythm, no murmur Gastrointestinal: normal bowel sounds, non tender, soft, no organomegaly, no pulsatile mass Back: no CVA tenderness, no vertebral tenderness, other (erythema just above ankle, with ?? bullae. red streaking on inner aspect of thight) Extremities: no calf tenderness, inflammation, pedal edema (right food) Neurologic/Psychiatric: proof carrier II-XII nml as tested, alert, normal mood/affect, oriented x 3 Skin: normal color, other (psoriasis plaques on both lower extremities) Lymphatic: no adenopathy (neck or axilla, ?? + right inguinal nodes) Data Review Labs Laboratory Tests 01/23/19 14:37: White Blood Count 11.7H, Red Blood Count 4.62, Hemoglobin 13.8, Hematocrit 39, Mean Corpuscular Volume 85, Mean Corpuscular Hemoglobin 30, Mean Corpuscular Hemoglobin Concent 35, Red Cell Distribution Width 12.6, Platelet Count 307, Mean Platelet Volume 10.2, Neutrophils (%) (Auto) 79H, Lymphocytes (%) (Auto) 14 , Monocytes (%) (Auto) 7, Eosinophils (%) (Auto) 0, Basophils (%) (Auto) 0, Neutrophils # (Auto) 9.2H, Lymphocytes # (Auto) 1.6, Monocytes # (Auto) 0.8, Eosinophils # (Auto) 0.0, Basophils # (Auto) 0.0, Sodium Level 135, Potassium Level 3.4L, Chloride Level 97L, Carbon Dioxide Level 25, Anion Gap 13, Blood Urea Nitrogen 14, Creatinine 0.82, Estimat Glomerular Filtration Rate > 60, BUN/ Creatinine Ratio 17, Glucose Level 179H, Lactic Acid Level 2.29*H, Calcium Level 9.7, Corrected Calcium 9.8, Total Bilirubin 0.6, Aspartate Amino Transf ( AST/SGOT) 22, Alanine Aminotransferase (ALT/SGPT) 34, Alkaline Phosphatase 80, Troponin I < 0.028, Total Protein 7.8, Albumin 3.9 Assessment/Plan Assessment/Plan Assessment/Plan RLE cellulitis DM US shows no DVT and no abscess collection under areas of erythema. Plan for IV ABX, elevate leg and good wound care. I will follow along, no need for surgical intervention at this time. Clinical Quality Measures DVT/VTE Risk/Contraindication: Contraindications-Mechi: Other *list below* Other: venous stasis dermatitis with cellulitis of leg GABY TERAN DO Jan 23, 2019 15:36
--- NOTE | 2019-01-23 15:40 | NUR ---
CR 0.89; CR CL > 60; WT 87 KG; VANCO 1500 MG IV BOLUS THEN 1250 MG IV Q12H; TROUGH AFTER 3RD DOSE
[2019-01-23] MEDS: ENOXAPARIN 40 MG/0.4 ML (LOVENOX) SYR SC SCH (15:44)
[2019-01-23] MEDS: HYDROcodone/APAP 5 MG/325 MG (LORTAB) TAB PO PRN ×2 (15:47→23:12)
[2019-01-23 16:00] VITALS: BP 164/97
--- NOTE | 2019-01-23 16:30 | Diagnostic Imaging Report ---
PROCEDURE: US right lower extremity venous. TECHNIQUE: Multiple real-time grayscale images were obtained over the right lower extremity in various projections. Additional spectral analysis and color Doppler duplex images were also obtained. INDICATION: Cellulitis in the right leg. FINDINGS: There is no evidence of right lower extremity DVT. Right lower extremity deep venous system shows normal compressibility with normal response to augmentation and Valsalva. No fluid collection is seen. There are prominent lymph nodes in the right groin, indeterminate. There is some subcutaneous edema in the right calf. IMPRESSION: 1. No evidence of right lower extremity DVT. 2. Prominent right groin lymph nodes, perhaps reactive. There is some edema in the subcutaneous tissues in the right calf. Dictated by: Dictated on workstation # [id number]
[2019-01-23] MEDS: inSUlin ASPART (NovoLOG) 1 UNIT/0.01 ML (CHARGE PER UNIT) SC SCH ×2 (17:39→21:02)
--- NOTE | 2019-01-23 19:39 | NUR ---
SALVADOR LUDWIG admitted to room 411-1, with an admitting diagnosis of RIGHT LEG CELLULITIS, on 01/23/19 from [facility], accompanied by SELF. SALVADOR LUDWIG introduced to surroundings, call light, bed controls, phone, TV, temperature control, lights, meal times, smoking policy, visitor policy, side rail policy, bathrooms and showers. Patient Rights given to patient in the handbook. SALVADOR LUDWIG verbalizes understanding that [facility] is not responsible for the loss or damage to any personal effects or valuables that are kept in the patients possession during their hospitalization.
[2019-01-23 20:00] VITALS: BP 119/70
--- NOTE | 2019-01-23 20:15 | NUR ---
assessment done at this time. for shift exam charted at 01/24 @0245 Addendum: 01/24/19 at 0259 by JOSAFAT ALSTON RN Amended: Links added.
[2019-01-23] MEDS: PIPERACILLIN/TAZOBACTAM (BULK) 4.5 GM in NS (IVPB) 100 ML IV SCH (20:29)
[2019-01-23] MEDS: POLYETHYLENE GLYCOL 17 GM (MIRALAX) PACK PO SCH (21:02)
[2019-01-23] MEDS: NICOTINE 21 MG (NICODERM) PATCH TD SCH (21:02)
--- NOTE | 2019-01-23 22:30 | NUR ---
Dr Gray notified of the lactic acid redraw missed. no new orders.
[2019-01-23 23:36] VITALS: BP 128/72
[2019-01-24] MEDS: VANCOMYCIN 1250 MG/NS 250 ML IVPB IV SCH ×4 (02:33→14:56)
[2019-01-24 04:01] VITALS: BP 122/74
[2019-01-24] MEDS: PIPERACILLIN/TAZOBACTAM (BULK) 4.5 GM in NS (IVPB) 100 ML IV SCH ×3 (04:11→18:45)
[2019-01-24] MEDS: inSUlin ASPART (NovoLOG) 1 UNIT/0.01 ML (CHARGE PER UNIT) SC SCH ×4 (05:38→20:21)
[2019-01-24] MEDS: NS IV 1000 ML 1,000 ML IV SCH ×3 (05:38→20:19)
[2019-01-24 05:49] LABS: BASOPHILS % (AUTO) 1 % (0-10); EOSINOPHILS # (AUTO) 0.1 10^3/uL (0.0-0.3); EOSINOPHILS % (AUTO) 2 % (0-10); HEMATOCRIT 34 % (35-52); HEMOGLOBIN 11.7 G/DL (11.5-16.0); LYMPHOCYTES % (AUTO) 26 % (12-44); MEAN CORPUSCULAR HEMOGLOBIN 29 PG (25-34); MEAN CORPUSCULAR HGB CONC 34 G/DL (32-36); MEAN CORPUSCULAR VOLUME 86 FL (80-99); MONOCYTES # (AUTO) 0.6 X 10^3 (0.0-1.0); MONOCYTES % (AUTO) 7 % (0-12); NEUTROPHILS # (AUTO) 5.1 X 10^3 (1.8-7.8); NEUTROPHILS % (AUTO) 65 % (42-75); PLATELET COUNT 265 10^3/uL (130-400); RED CELL DISTRIBUTION WIDTH 12.4 % (10.0-14.5); WHITE BLOOD COUNT 7.8 10^3/uL (4.3-11.0)
[2019-01-24 06:06] LABS: ALANINE AMINOTRANSFERASE 32 U/L (0-55); ALBUMIN 3.2 GM/DL (3.2-4.5); ALKALINE PHOSPHATASE 69 U/L (40-136); BILIRUBIN,TOTAL 0.3 MG/DL (0.1-1.0); BUN/CREATININE RATIO 16; CALCIUM 8.5 MG/DL (8.5-10.1); CARBON DIOXIDE 25 MMOL/L (21-32); CHLORIDE 104 MMOL/L (98-107); CREATININE SERUM 0.79 MG/DL (0.60-1.30); GFR ESTIMATED > 60; GLUCOSE 158 MG/DL (70-105); POTASSIUM 3.6 MMOL/L (3.6-5.0); SODIUM 137 MMOL/L (135-145); TOTAL PROTEIN 6.3 GM/DL (6.4-8.2)
[2019-01-24 08:00] VITALS: BP 160/89
[2019-01-24] MEDS: POLYETHYLENE GLYCOL 17 GM (MIRALAX) PACK PO SCH ×2 (08:17→20:21)
[2019-01-24] MEDS: NICOTINE 21 MG (NICODERM) PATCH TD SCH (08:17)
[2019-01-24] MEDS: HYDROcodone/APAP 5 MG/325 MG (LORTAB) TAB PO PRN ×2 (08:17→16:49)
--- NOTE | 2019-01-24 09:53 | Progress Note-Hospitalist ---
Subjective HPI/CC On Admission Date Seen by Provider: Jan 24, 2019 Time Seen by Provider: 09:30 CC: Right lower extremity redness and edema HPI: This is a 53yoWF clinic patient of Dr Jazmine Sanders at [facility] who was directly admitted to room 411 in need of right lower extremity cellulitis inpatient management due to failed outpatient PO abx given in ER Wednesday. She has out of control diabetes and reported the redness was going up her leg for the past 24 hours. She was given Keflex 500mg PO QID in ER on Wednesday but worsened to the point of not being able to ambulate. Patient reported subjective fever. Patient non-compliant with most medical treatment and has a h/ o meth abuse. USG was ordered along with Dr Olson consultation in case abscess had formed and needed I&D. Subjective/Events-last exam Midline was placed yesterday with out difficulty T Max was 99.6 given Tylenol in the Hydrocodone Right leg redness is much improved Blisters are forming which is expected Will DC Telemetry Elevated lactic acid yesterday was noted but no hypotension, Pt was already on IV fluids repeat in 4hrs was not completed as protocol but her lactic acid today is now within normal limits Family at the bedside Updated her on ultrasound results, No DVT Maintain on Lovenox for DVT prophylaxis Review of Systems General: Fatigue Musculoskeletal: leg pain Focused Exam Lactate Level 01/23/19 14:37: Lactic Acid Level 2.29*H 01/24/19 05:35: Lactic Acid Level 0.70 Objective Exam Vital Signs Vital Signs Date Time Temp Pulse Resp B/P (MAP) Pulse Ox O2 Delivery O2 Flow Rate FiO2 01/24/19 15:52 99.9 90 20 155/82 (106) 98 Room Air Capillary Refill : General Appearance: No Apparent Distress, WD/WN, Chronically ill HEENT: PERRL/EOMI, Normal ENT Inspection, Pharynx Normal, Moist Mucous Membranes Neck: Full Range of Motion, Normal Inspection, Non Tender Respiratory: Chest Non Tender, Lungs Clear, Normal Breath Sounds, No Accessory Muscle Use, No Respiratory Distress Cardiovascular: Regular Rate, Rhythm, No Edema, No Gallop, No JVD, No Murmur, Normal Peripheral Pulses Gastrointestinal: Normal Bowel Sounds, No Organomegaly, No Pulsatile Mass, Non Tender, Soft Back: Normal Inspection, No CVA Tenderness, No Vertebral Tenderness Extremity: Normal Capillary Refill, Normal Inspection, Normal Range of Motion ( except right leg due to edema), Non Tender, No Calf Tenderness, No Pedal Edema Neurologic/Psychiatric: Alert, Oriented x3, No Motor/Sensory Deficits, Normal Mood/Affect Skin: Normal Color, Warm/Dry, Rash (right lower leg with lymphangitis much improved status) Lymphatic: No Adenopathy Results/Procedures Lab Laboratory Tests 01/24/19 05:35 Patient resulted labs reviewed. Assessment/Plan Assessment and Plan Assess & Plan/Chief Complaint Assessment: Right leg cellulitis failed outpatient Keflex Sepsis Smoker DM OOC Meth use Plan: IV abx Dr Olson consultation is appreciated Checked USG to r/o DVT and abscess which were both negative Pain meds UDS Accuchecks Diagnosis/Problems Diagnosis/Problems (1) Cellulitis of right leg Status: Acute (2) Sepsis Status: Resolved Qualifiers: Sepsis type: sepsis due to unspecified organism Qualified Codes: A41.9 - Sepsis, unspecified organism Resolution Date/Time: 01/24/19 @ 21:04 (3) Smoker Status: Chronic (4) Leucocytosis Status: Acute Qualifiers: Leukocytosis type: leukemoid reaction Qualified Codes: D72.823 - Leukemoid reaction (5) Diabetes mellitus Status: Chronic Qualifiers: Diabetes mellitus type: type 2 Diabetes mellitus terminal makeup operator insulin use: without terminal makeup operator use Diabetes mellitus complication status: without complication Qualified Codes: E11.9 - Type 2 diabetes mellitus without complications (6) Methamphetamine use Status: Acute Clinical Quality Measures DVT/VTE Risk/Contraindication: Risk Factor Score Per Nursin RFS Level Per Nursing on Admit: 4+=Very High Contraindications-Mechi: Other *list below* Other: venous stasis dermatitis with cellulitis of leg EDDIE CHAND DO Jan 24, 2019 09:53
--- NOTE | 2019-01-24 10:38 | Progress Note ---
Subjective Time Seen by a Provider: 09:18 Subjective/Events-last exam Pt seen and examined, states she is feeling better with no new complaints. Review of Systems General: No Chills, No Night Sweats Pulmonary: No Dyspnea, No Cough Cardiovascular: No: Chest Pain, Palpitations Focused Exam Lactate Level 01/23/19 14:37: Lactic Acid Level 2.29*H 01/24/19 05:35: Lactic Acid Level 0.70 Objective Exam Vital Signs Date Time Temp Pulse Resp B/P (MAP) Pulse Ox O2 Delivery O2 Flow Rate FiO2 01/24/19 08:00 98 Room Air 01/24/19 08:00 99.6 97 20 160/89 (112) 98 Room Air 01/24/19 07:08 95 01/24/19 04:01 97.8 82 20 122/74 (90) 99 Room Air 01/24/19 02:45 98 Room Air 01/24/19 01:00 86 01/23/19 23:36 99.6 90 24 128/72 (90) 98 Room Air 01/23/19 20:00 98.6 89 20 119/70 (86) 98 Room Air 01/23/19 19:00 92 01/23/19 18:14 Room Air 01/23/19 16:00 99.9 106 20 164/97 (119) 99 Room Air 01/23/19 13:37 99.3 103 18 137/95 Room Air 01/23/19 13:27 100 I & O 01/24/19 06:59 Intake Total 3272 ml Balance 3272 ml Capillary Refill : General Appearance: No Apparent Distress, WD/WN HEENT: PERRL/EOMI, TMs Normal, Pharynx Normal, Moist Mucous Membranes Respiratory: Chest Non Tender, Lungs Clear, Normal Breath Sounds, No Accessory Muscle Use, No Respiratory Distress Cardiovascular: Regular Rate, Rhythm, No Murmur Gastrointestinal: normal bowel sounds, non tender, soft, no organomegaly, no pulsatile mass Neurologic/Psychiatric: Alert, Oriented x3, No Motor/Sensory Deficits, Normal Mood/Affect Skin: Normal Color, Warm/Dry, Rash (right lower leg erythema with bullae, appears better than yesterday, has some venous stasis changes as well and psoriasis plaques. the red streaking up inner aspect of leg appear almost gone) Results Lab Laboratory Tests 01/23/19 14:37: White Blood Count 11.7H, Red Blood Count 4.62, Hemoglobin 13.8, Hematocrit 39, Mean Corpuscular Volume 85, Mean Corpuscular Hemoglobin 30, Mean Corpuscular Hemoglobin Concent 35, Red Cell Distribution Width 12.6, Platelet Count 307, Mean Platelet Volume 10.2, Neutrophils (%) (Auto) 79H, Lymphocytes (%) (Auto) 14 , Monocytes (%) (Auto) 7, Eosinophils (%) (Auto) 0, Basophils (%) (Auto) 0, Neutrophils # (Auto) 9.2H, Lymphocytes # (Auto) 1.6, Monocytes # (Auto) 0.8, Eosinophils # (Auto) 0.0, Basophils # (Auto) 0.0, Sodium Level 135, Potassium Level 3.4L, Chloride Level 97L, Carbon Dioxide Level 25, Anion Gap 13, Blood Urea Nitrogen 14, Creatinine 0.82, Estimat Glomerular Filtration Rate > 60, BUN/ Creatinine Ratio 17, Glucose Level 179H, Mean Blood Glucose 151H, Hemoglobin A1c 6.9H, Lactic Acid Level 2.29*H, Calcium Level 9.7, Corrected Calcium 9.8, Total Bilirubin 0.6, Aspartate Amino Transf (AST/SGOT) 22, Alanine Aminotransferase (ALT/SGPT) 34, Alkaline Phosphatase 80, Troponin I < 0.028, Total Protein 7.8, Albumin 3.9 01/23/19 16:04: Glucometer 183H 01/23/19 20:58: Glucometer 119H 01/24/19 05:32: Glucometer 161H 01/24/19 05:35: White Blood Count 7.8, Red Blood Count 3.98L, Hemoglobin 11.7, Hematocrit 34L, Mean Corpuscular Volume 86, Mean Corpuscular Hemoglobin 29, Mean Corpuscular Hemoglobin Concent 34, Red Cell Distribution Width 12.4, Platelet Count 265, Mean Platelet Volume 10.0, Neutrophils (%) (Auto) 65, Lymphocytes (%) (Auto) 26 , Monocytes (%) (Auto) 7, Eosinophils (%) (Auto) 2, Basophils (%) (Auto) 1, Neutrophils # (Auto) 5.1, Lymphocytes # (Auto) 2.0, Monocytes # (Auto) 0.6, Eosinophils # (Auto) 0.1, Basophils # (Auto) 0.0, Sodium Level 137, Potassium Level 3.6, Chloride Level 104, Carbon Dioxide Level 25, Anion Gap 8, Blood Urea Nitrogen 13, Creatinine 0.79, Estimat Glomerular Filtration Rate > 60, BUN/ Creatinine Ratio 16, Glucose Level 158H, Lactic Acid Level 0.70, Calcium Level 8.5, Corrected Calcium 9.1, Total Bilirubin 0.3, Aspartate Amino Transf (AST/ SGOT) 24, Alanine Aminotransferase (ALT/SGPT) 32, Alkaline Phosphatase 69, Total Protein 6.3L, Albumin 3.2 Assessment/Plan Assessment/Plan Assessment/Plan RLE cellulitis DM Continue IV ABX, elevate leg and good wound care. I will follow along, no need for surgical intervention at this time. Clinical Quality Measures DVT/VTE Risk/Contraindication: Risk Factor Score Per Nursin RFS Level Per Nursing on Admit: 4+=Very High Contraindications-Mechi: Other *list below* Other: venous stasis dermatitis with cellulitis of leg GABY TERAN DO Jan 24, 2019 10:38
--- NOTE | 2019-01-24 11:23 | NUR ---
CM/SS, initial review. Patient sleeping soundly, visited with her two sisters, Nidia Padilla and Liberty Laughlin, at bedside. Updated demographics with sisters' names and contact information. Patient has SO Junito that sometimes lives with her, both sisters report he is not reliable, often does not have phone service. Patient is established with [facility], chronic illness (diabetes), tobaccoism, history of meth use. EMR reflects noncompliance to diabetic monitor/maintenance and Rx. Will interview patient when she is awake and alone to explore access to healthcare and issues re noncompliance.
[2019-01-24] MEDS: ENOXAPARIN 40 MG/0.4 ML (LOVENOX) SYR SC SCH (13:05)
[2019-01-24 15:52] VITALS: BP 155/82
[2019-01-25 00:17] VITALS: BP 159/76
[2019-01-25] MEDS ORDERED: TROUGH ORDER-PHARMACY XX NR (01:00)
[2019-01-25] MEDS: VANCOMYCIN 1250 MG/NS 250 ML IVPB IV SCH ×2 (01:45)
[2019-01-25] MEDS: PIPERACILLIN/TAZOBACTAM (BULK) 4.5 GM in NS (IVPB) 100 ML IV SCH ×2 (03:08→11:10)
[2019-01-25 06:04] LABS: BASOPHILS % (AUTO) 0 % (0-10); EOSINOPHILS % (AUTO) 0 % (0-10); HEMATOCRIT 34 % (35-52); HEMOGLOBIN 11.7 G/DL (11.5-16.0); LYMPHOCYTES # (AUTO) 2.2 X 10^3 (1.0-4.0); LYMPHOCYTES % (AUTO) 22 % (12-44); MEAN CORPUSCULAR HEMOGLOBIN 30 PG (25-34); MEAN CORPUSCULAR HGB CONC 35 G/DL (32-36); MEAN CORPUSCULAR VOLUME 86 FL (80-99); MEAN PLATELET VOLUME 9.8 FL (7.4-10.4); MONOCYTES # (AUTO) 0.7 X 10^3 (0.0-1.0); MONOCYTES % (AUTO) 7 % (0-12); NEUTROPHILS # (AUTO) 7.2 X 10^3 (1.8-7.8); NEUTROPHILS % (AUTO) 71 % (42-75); PLATELET COUNT 320 10^3/uL (130-400); RED CELL DISTRIBUTION WIDTH 12.7 % (10.0-14.5); WHITE BLOOD COUNT 10.2 10^3/uL (4.3-11.0)
[2019-01-25 06:25] LABS: ALBUMIN 3.2 GM/DL (3.2-4.5); BILIRUBIN,TOTAL 0.5 MG/DL (0.1-1.0); CALCIUM 8.7 MG/DL (8.5-10.1); CREATININE SERUM 1.14 MG/DL (0.60-1.30); POTASSIUM 3.9 MMOL/L (3.6-5.0); TOTAL PROTEIN 6.3 GM/DL (6.4-8.2)
[2019-01-25] MEDS: inSUlin ASPART (NovoLOG) 1 UNIT/0.01 ML (CHARGE PER UNIT) SC SCH ×2 (06:27→11:10)
[2019-01-25 08:00] VITALS: BP 135/85
[2019-01-25] MEDS: NS IV 1000 ML 1,000 ML IV SCH (08:22)
[2019-01-25] MEDS: POLYETHYLENE GLYCOL 17 GM (MIRALAX) PACK PO SCH (08:22)
[2019-01-25] MEDS: NICOTINE 21 MG (NICODERM) PATCH TD SCH (08:22)
[2019-01-25] MEDS ORDERED: SULF1TAB35 PO (09:33)
[2019-01-25] MEDS ORDERED: ACHD5005 PO (09:33)
--- NOTE | 2019-01-25 09:33 | Discharge Summary-Hospitalist ---
Diagnosis/Chief Complaint Date of Admission Jan 23, 2019 at 13:10 Date of Discharge Discharge Date: Jan 25, 2019 Admission Diagnosis Assessment: Right leg cellulitis failed outpatient Keflex Sepsis Smoker DM OOC Meth use Plan: IV abx Dr Olson consultation Check USG to r/o DVT and abscess Pain meds UDS Accuchecks Discharge Diagnosis (1) Cellulitis of right leg Status: Acute (2) Sepsis Status: Resolved (3) Smoker Status: Chronic (4) Leucocytosis Status: Acute (5) Diabetes mellitus Status: Chronic (6) Methamphetamine use Status: Acute Discharge Summary Discharge Physical Exam Allergies: Coded Allergies: aspirin (Unverified Allergy, Mild, UPSET STOMACH, 01/24/09) codeine (Unverified Allergy, Mild, HIVES, 01/24/09) Vitals & I&Os Vital Signs Date Time Temp Pulse Resp B/P (MAP) Pulse Ox O2 Delivery O2 Flow Rate FiO2 01/25/19 11:20 101 18 135/85 97 Room Air 01/25/19 08:00 98.1 General Appearance: No Apparent Distress, WD/WN, Chronically ill Respiratory: Chest Non Tender, Lungs Clear, Normal Breath Sounds, No Accessory Muscle Use, No Respiratory Distress Cardiovascular: Regular Rate, Rhythm, No Edema, No Gallop, No JVD, No Murmur, Normal Peripheral Pulses Skin: Rash (much improved right lower leg cellulitis) Neurologic/Psychiatric: Alert, Oriented x3, No Motor/Sensory Deficits, Normal Mood/Affect Hospital Course Was the Problem List Reviewed?: Yes Hospital course: Pt had an uneventful and short hospital course, she was placed on empiric IV antibiotics of Zosyn and Vancomycin empirically and Dr. Olson was consulted. Ultrasound did not reveal any abcess formation or DVT. She did not require any procedure. She was afebrile and she was eating and drinking, labs came back within normal limits, lactic acid had cleared with IV fluids and will be discharged in improved conditions with close follow-up at [facility] and sent Bactrim in addition to resuming her Keflex she was on prior to admission to [facility] Labs (last 24 hrs) Laboratory Tests 01/24/19 20:08: Glucometer 129H 01/25/19 00:49: Vancomycin Level Trough 17.1 01/25/19 05:50: White Blood Count 10.2, Red Blood Count 3.93L, Hemoglobin 11.7, Hematocrit 34L, Mean Corpuscular Volume 86, Mean Corpuscular Hemoglobin 30, Mean Corpuscular Hemoglobin Concent 35, Red Cell Distribution Width 12.7, Platelet Count 320, Mean Platelet Volume 9.8, Neutrophils (%) (Auto) 71, Lymphocytes (%) (Auto) 22, Monocytes (%) (Auto) 7, Eosinophils (%) (Auto) 0, Basophils (%) (Auto) 0, Neutrophils # (Auto) 7.2, Lymphocytes # (Auto) 2.2, Monocytes # (Auto) 0.7, Eosinophils # (Auto) 0.0, Basophils # (Auto) 0.0, Sodium Level 142, Potassium Level 3.9, Chloride Level 108H, Carbon Dioxide Level 22, Anion Gap 12, Blood Urea Nitrogen 13, Creatinine 1.14, Estimat Glomerular Filtration Rate 49, BUN/ Creatinine Ratio 11, Glucose Level 134H, Calcium Level 8.7, Corrected Calcium 9.3, Total Bilirubin 0.5, Aspartate Amino Transf (AST/SGOT) 38H, Alanine Aminotransferase (ALT/SGPT) 56H, Alkaline Phosphatase 70, Total Protein 6.3L, Albumin 3.2 Microbiology 01/23/19 Blood Culture - Preliminary, Resulted No growth Patient resulted labs reviewed. Pending Labs Discussion & Recommendations Discharge Planning: <30 minutes discharge planning Discharge Home Medications: Active Scripts Active Bactrim Ds Tablet (Sulfamethoxazole/Trimethoprim) 1 Each Tablet 1 Each PO BID Hydrocodone/Acetaminophen 5/325mg Tablet (Acetaminophen/Hydrocodone Bitart) 1 Tab Tab 1 Tab PO Q4H PRN Keflex (Cephalexin) 500 Mg Capsule 500 Mg PO Q6H . Reported Menstrual Relief Caplet (Acetaminophn/Pyril Mal/Caffein) 1 Each Tablet 1 Tab PO Q6H PRN Trulicity (Dulaglutide) 0.75 Mg/0.5 Ml Pen.injctr 0.75 Mg SQ FR Instructions to patient/family Please see electronic discharge instructions given to patient. Clinical Quality Measures DVT/VTE Risk/Contraindication: Risk Factor Score Per Nursin RFS Level Per Nursing on Admit: 4+=Very High Contraindications-Mechi: Other *list below* Other: venous stasis dermatitis with cellulitis of leg Problem Qualifiers (1) Sepsis: Sepsis type: sepsis due to unspecified organism Qualified Codes: A41.9 - Sepsis, unspecified organism (2) Leucocytosis: Leukocytosis type: leukemoid reaction Qualified Codes: D72.823 - Leukemoid reaction (3) Diabetes mellitus: Diabetes mellitus type: type 2 Diabetes mellitus chcf insulin use: without chcf use Diabetes mellitus complication status: without complication Qualified Codes: E11.9 - Type 2 diabetes mellitus without complications EDDIE CHAND DO Jan 25, 2019 09:33
[2019-01-25 11:20] VITALS: BP 135/85
== END 2019-01-25 11:20 | disposition home or self-care (01) | DRG 872 ==
LOC: 4TH 13:10
PROVIDERS: ADMIT Internal Medicine; ATTEND Internal Medicine
DX: A41.9 Sepsis, unspecified organism (principal); L03.115 Cellulitis of right lower limb; E11.65 Type 2 diabetes mellitus with hyperglycemia; F17.210 Nicotine dependence, cigarettes, uncomplicated; I87.2 Venous insufficiency (chronic) (peripheral); F15.90 Other stimulant use, unspecified, uncomplicated; Z91.19 Patient's noncompliance with other medical treatment and regimen; Z85.41 Personal history of malignant neoplasm of cervix uteri; Z92.21 Personal history of antineoplastic chemotherapy; Z90.710 Acquired absence of both cervix and uterus
CPT/HCPCS: 36415; 76937; 80053; 80202; 82962; 83036; 83605; 84484; 85025; 87040

== ENCOUNTER 2019-10-23 03:56 | Emergency (ER) | payer SELFPAY ==
[~2019-10-23] VITALS: Ht 172.2 cm; Wt 81.6 kg
[~2019-10-23 03:56] MED LIST changes: +DULA0.75 SQ; +SULF1TAB35 PO; +[UNRECOGNIZED DRUG - CODE] PO
[2019-10-23] MEDS ORDERED: HYDROcodone/APAP 7.5 MG/325 MG (LORTAB, LORCET PLUS) TABLET PO STA (04:29)
[2019-10-23] MEDS ORDERED: fentaNYL INJECTION 100 MCG/2 ML AMP IVP STA (04:29)
--- NOTE | 2019-10-23 04:37 | ED General ---
General Stated Complaint: BI LAT LEG PAIN, Source of Information: Patient Exam Limitations: No Limitations History of Present Illness Date Seen by Provider: Oct 23, 2019 Time Seen by Provider: 04:23 Initial Comments Here with report bilateral leg pain. Right leg she has concerns of cellulitis due to erythema, warmth and pain that emanates from the wounds near the right ankle and goes up across the anterior portion of the leg to just below the knee. Has had cellulitis there before. On the left leg, she is complaining of sciatic area that goes from her left hip down to her foot on the lateral aspect. She has taken 2 Aleve in the last 4 hours and has not helped. Main concerns about cellulitis. Denies fevers, nausea, vomiting, diarrhea, chest pain or breathing problems. She did have upper respiratory infection a week ago but that has subsequently resolved and she has no upper respiratory symptoms. Timing/Duration: 3-4 Days, Getting Worse Severity: Moderate Associated Systoms: No Chest Pain, No Cough, No Fever/Chills, No Nausea/Vomiting, No Shortness of Air, No Weakness Allergies and Home Medications Allergies Coded Allergies: aspirin (Unverified Allergy, Mild, UPSET STOMACH, 01/24/09) codeine (Unverified Allergy, Mild, HIVES, 01/24/09) Home Medications Acetaminophn/Pyril Mal/Caffein 1 Each Tablet, 1 TAB PO Q6H PRN for PAIN-MILD, (Reported) Cephalexin 500 Mg Capsule, 500 MG PO Q6H . Prescribed by: DILSHAD JOINER on 01/21/19 1225 Dulaglutide 0.75 Mg/0.5 Ml Pen.injctr, 0.75 MG SQ Fr, (Reported) Hydrocodone Bit/Acetaminophen 1 Tab Tab, 1 TAB PO Q4H PRN for PAIN-MODERATE Prescribed by: EDDIE CHAND on 01/25/19932 Sulfamethoxazole/Trimethoprim 1 Each Tablet, 1 EACH PO BID Prescribed by: EDDIE CHAND on 01/25/19932 Patient Home Medication List Home Medication List Reviewed: Yes Review of Systems Review of Systems Constitutional: see HPI; No chills, No fever EENTM: see HPI, no symptoms reported Respiratory: no symptoms reported Cardiovascular: no symptoms reported Gastrointestinal: No abdominal pain, No diarrhea, No nausea, No vomiting Genitourinary: No dysuria, No frequency Musculoskeletal: back pain, joint pain, muscle pain Skin: change in color, lesions Psychiatric/Neurological: No Symptoms Reported All Other Systems Reviewed Negative Unless Noted: Yes Past Lajgylf-Bntkir-Vfhjuw Hx Past Med/Social Hx: Reviewed Nursing Past Med/Soc Hx Patient Social History Alcohol Use: Denies Use Drug of Choice: ??? 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 0.0oz. [id number]; 29.2 BMI Method:Actual General Appearance: No Apparent Distress, WD/WN HEENT: PERRL/EOMI, Pharynx Normal Neck: Non Tender, Supple Respiratory: Lungs Clear, Normal Breath Sounds Cardiovascular: No Murmur, Tachycardia Gastrointestinal: Non Tender, Soft Back: Normal Inspection, No CVA Tenderness, No Vertebral Tenderness Extremity: Normal Range of Motion, Inflammation, Other (tender along the lateral and anterior aspect of the right lower extremity in the area of erythema.) Neurologic/Psychiatric: Alert, Oriented x3 Skin: ecchymosis (multiple areas of bruising on her arm especially around the vein areas. She states that she hit her arm and she bruised.), other (plaque lesions around both ankle area circumferentially. There is redness emanating from the plaque lesions on the right lateral ankle and up over the anterior portion of the lower leg to just proximal to the knee. Tender to touch throughou t this area. Calves overall nontender.) Focused Exam Lactate Level 10/23/19 04:57: Lactic Acid Level 1.71 Lactic Acid Level Laboratory Tests Test 10/23/19 04:57 Lactic Acid Level 1.71 MMOL/L (0.50-2.00) Progress/Results/Core Measures Suspected Sepsis SIRS Temperature: Pulse: Respiratory Rate: Laboratory Tests 10/23/19 04:57: White Blood Count 15.2H Blood Pressure / Mean: 10/23/19 04:57: Lactic Acid Level 1.71 Laboratory Tests 10/23/19 04:57: Creatinine 0.88, INR Comment 1.0, Platelet Count 316, Total Bilirubin 0.4 Results/Orders Lab Results Laboratory Tests Test 10/23/19 04:57 Range/Units White Blood Count 15.2 H 4.3-11.0 10^3/uL Red Blood Count 4.73 4.35-5.85 10^6/uL Hemoglobin 14.4 11.5-16.0 G/DL Hematocrit 41 35-52 % Mean Corpuscular Volume 87 80-99 FL Mean Corpuscular Hemoglobin 30 25-34 PG Mean Corpuscular Hemoglobin Concent 35 32-36 G/DL Red Cell Distribution Width 12.7 10.0-14.5 % Platelet Count 316 130-400 10^3/uL Mean Platelet Volume 10.3 7.4-10.4 FL Neutrophils (%) (Auto) 75 42-75 % Lymphocytes (%) (Auto) 19 12-44 % Monocytes (%) (Auto) 5 0-12 % Eosinophils (%) (Auto) 1 0-10 % Basophils (%) (Auto) 0 0-10 % Neutrophils # (Auto) 11.4 H 1.8-7.8 X 10^3 Lymphocytes # (Auto) 2.9 1.0-4.0 X 10^3 Monocytes # (Auto) 0.8 0.0-1.0 X 10^3 Eosinophils # (Auto) 0.1 0.0-0.3 10^3/uL Basophils # (Auto) 0.0 0.0-0.1 10^3/uL Neutrophils % (Manual) 74 % Lymphocytes % (Manual) 16 % Monocytes % (Manual) 8 % Atypical Lymphocytes 2 % Prothrombin Time 13.7 12.2-14.7 SEC INR Comment 1.0 0.8-1.4 Activated Partial Thromboplast Time 24 24-35 SEC Sodium Level 137 135-145 MMOL/L Potassium Level 3.9 3.6-5.0 MMOL/L Chloride Level 102 98-107 MMOL/L Carbon Dioxide Level 22 21-32 MMOL/L Anion Gap 13 5-14 MMOL/L Blood Urea Nitrogen 19 H 7-18 MG/DL Creatinine 0.88 0.60-1.30 MG/DL Estimat Glomerular Filtration Rate > 60 BUN/Creatinine Ratio 22 Glucose Level 156 H 70-105 MG/DL Lactic Acid Level 1.71 0.50-2.00 MMOL/L Calcium Level 9.3 8.5-10.1 MG/DL Corrected Calcium 9.2 8.5-10.1 MG/DL Total Bilirubin 0.4 0.1-1.0 MG/DL Aspartate Amino Transf (AST/SGOT) 20 5-34 U/L Alanine Aminotransferase (ALT/SGPT) 27 0-55 U/L Alkaline Phosphatase 89 40-136 U/L C-Reactive Protein High Sensitivity 1.16 H 0.00-0.50 MG/DL Total Protein 7.8 6.4-8.2 GM/DL Albumin 4.1 3.2-4.5 GM/DL My Orders Orders - HAYLEY THAKKAR MD Cbc With Automated Diff (10/23/19 04:29) Comprehensive Metabolic Panel (10/23/19 04:29) Blood Culture (10/23/19 04:29) Sputum Culture (10/23/19 04:29) Urinalysis (10/23/19 04:29) Urine Culture (10/23/19 04:29) Protime With Inr (10/23/19 04:29) Partial Thromboplastin Time (10/23/19 04:29) Chest 1 View, Ap/Pa Only (10/23/19 04:29) Ed Iv/Invasive Line Start (10/23/19 04:29) Vital Signs Adult Sepsis Patie Q15M (10/23/19 04:29) O2 (10/23/19 04:29) Remove Rings In Anticipation O (10/23/19 04:29) Lactic Acid Analyzer (10/23/19 04:29) Fentanyl Injection (Sublimaze Injection (10/23/19 04:29) Hydrocodone/Apap 7.5/325 Tab (Lortab 7. (10/23/19 04:29) Manual Differential (10/23/19 04:57) Hs C Reactive Protein (10/23/19 05:26) Orphenadrine Injection (Norflex Injectio (10/23/19 05:27) Drug Screen Stat (Urine) (10/23/19 05:37) Ceftriaxone For Iv Use (Rocephin For I (10/23/19 06:00) Sulfamethoxazole/Trimet Ds Tab (Bactrim (10/23/19 06:00) Medications Given in ED Current Medications Medications Dose Ordered Sig/Rhonda Route Start Time Stop Time Status Last Admin Dose Admin Ceftriaxone Sodium 1000 mg/ Sterile Water 10 ml @ 200 mls/hr ONCE ONCE IV 10/23/19 06:00 10/23/19 06:02 DC 10/23/19 06:03 200 MLS/HR Trimethoprim/ Sulfamethoxazole 1 ea ONCE ONCE PO 10/23/19 06:00 10/23/19 06:01 DC 10/23/19 06:03 1 EA Vital Signs/I&O 10/23/19 04:22 Temp 37.0 Pulse 115 Resp 20 B/P (MAP) 174/96 (122) Pulse Ox 100 Capillary Refill : Progress Note : Progress Note Seen and evaluated. Sepsis order set initiated. Fentanyl 50 g IV. Hydrocodone 7.5 mg by mouth. Monitor patient. 0444: Unable to get IV access thus far due to poor veins. We will try her with ultrasound or EJ. This was completed. Labs drawn. 0600: Pain is improved. She did receive Norflex 60 mg IV. She does have findings of cellulitis with elevated white count but CRP is only mildly elevated. I do believe that she would benefit from outpatient treatment. Historically she was on Bactrim DS as well as Keflex for her previous infection which didn't help. She states that she does not have any funds currently and she is concerned about getting her antibiotics. 0615: I have discussed the case with Dr. Alexandria Huerta. She will assist in pharmacy fill of the Bactrim and Keflex. She is asked that I write. Prescriptions but she will send a prescription over to the pharmacy as well as get appointment with Dr. Hargrove. I will write her for a few hydrocodone for the sciatica and cellulitis pain. She will continue [id number] Aleve and Tylenol when she is not taking the hydrocodone prescription. Discharged home with return precautions. Patient verbalize understanding instructions and agreement with plan. She did receive 1 g of Rocephin IV and Bactrim DS one tab by mouth. Diagnostic Imaging Diagonstic Imaging: Xray Plain Films/CT/US/NM/MRI: chest Comments No acute findings Reviewed: Reviewed by Me Departure Impression Primary Impression: Cellulitis Qualified Codes: L03.115 - Cellulitis of right lower limb Additional Impression: Sciatica, left side Disposition: HOME, SELF-CARE Condition: Improved Departure-Patient Inst. Decision time for Depature: 06:17 Referrals: SYLVIA HARGROVE MD (PCP/Family) Primary Care Physician Patient Instructions: Sciatica (DC), Cellulitis (Skin Infection), Adult (DC) Add. Discharge Instructions: Take medications as directed. Take the prescriptions of the antibiotics to the [facility] for fill. I have discussed the case with Dr. Huerta and she will discuss with them about filling her antibiotics. Let them know that the case was discussed with Dr. Huerta. You will have to fill the hydrocodone prescription on your own. Follow-up with Dr. Hargrove this week for recheck and further evaluation. You may take Aleve 2 tablets every 12 hours as needed for pain. If you're not taking a hydrocodone prescription, you may take Tylenol/acetaminophen 1000 mg every 6 hours as needed for pain. Do not take both at the same time as they both have acetaminophen in them. Drink plenty of flu ids. Return for worse pain, fever, vomiting, weakness, breathing problems, extending redness or pain from the cellulitis area of the right leg or other concerns as needed. Scripts Hydrocodone Bit/Acetaminophen (Hydrocodone/Acetaminophen 5/325mg Tablet) 1 Tab Tab 1 EACH PO Q4-6HR PRN for PAIN-MODERATE MDD 10 for 3 Days, #8 TAB 0 Refills Prov: HAYLEY THAKKAR MD 10/23/19 Sulfamethoxazole/Trimethoprim (Bactrim Ds Tablet) 1 Each Tablet 1 EACH PO BID, #14 TAB Prov: HAYLEY THAKKAR MD 10/23/19 Cephalexin (Cephalexin) 500 Mg Tablet 500 MG PO QID, #28 TAB 0 Refills Prov: HAYLEY THAKKAR MD 10/23/19 Copy Copies To 1: SYLVIA HARGROVE MD, TIMOTHY D MD Oct 23, 2019 04:37
[2019-10-23 05:11] LABS: BASOPHILS % (AUTO) 0 % (0-10); EOSINOPHILS # (AUTO) 0.1 10^3/uL (0.0-0.3); EOSINOPHILS % (AUTO) 1 % (0-10); HEMATOCRIT 41 % (35-52); HEMOGLOBIN 14.4 G/DL (11.5-16.0); LYMPHOCYTES # (AUTO) 2.9 X 10^3 (1.0-4.0); LYMPHOCYTES % (AUTO) 19 % (12-44); MEAN CORPUSCULAR HEMOGLOBIN 30 PG (25-34); MEAN CORPUSCULAR HGB CONC 35 G/DL (32-36); MEAN CORPUSCULAR VOLUME 87 FL (80-99); MEAN PLATELET VOLUME 10.3 FL (7.4-10.4); MONOCYTES # (AUTO) 0.8 X 10^3 (0.0-1.0); MONOCYTES % (AUTO) 5 % (0-12); NEUTROPHILS # (AUTO) 11.4 X 10^3 (1.8-7.8); NEUTROPHILS % (AUTO) 75 % (42-75); PLATELET COUNT 316 10^3/uL (130-400); RED CELL DISTRIBUTION WIDTH 12.7 % (10.0-14.5); WHITE BLOOD COUNT 15.2 10^3/uL (4.3-11.0)
[2019-10-23 05:23] LABS: PROTHROMBIN TIME PATIENT 13.7 SEC (12.2-14.7)
[2019-10-23] MEDS ORDERED: ORPHENADRINE 60 MG/2 ML (NORFLEX) AMP IV STA (05:27)
[2019-10-23 05:39] LABS: ALANINE AMINOTRANSFERASE 27 U/L (0-55); ALBUMIN 4.1 GM/DL (3.2-4.5); ALKALINE PHOSPHATASE 89 U/L (40-136); BILIRUBIN,TOTAL 0.4 MG/DL (0.1-1.0); BUN/CREATININE RATIO 22; CALCIUM 9.3 MG/DL (8.5-10.1); CARBON DIOXIDE 22 MMOL/L (21-32); CHLORIDE 102 MMOL/L (98-107); CREATININE SERUM 0.88 MG/DL (0.60-1.30); GFR ESTIMATED > 60; GLUCOSE 156 MG/DL (70-105); POTASSIUM 3.9 MMOL/L (3.6-5.0); SODIUM 137 MMOL/L (135-145); TOTAL PROTEIN 7.8 GM/DL (6.4-8.2)
[2019-10-23] MEDS ORDERED: cefTRIAXone FOR IV USE 1,000 MG in WATER (STERILE) FOR INJECTION 10 ML IV ONE (06:00)
[2019-10-23] MEDS ORDERED: TRIM/SULFAMETH 160/800 (SEPTRA DS) TAB PO ONE (06:00)
[2019-10-23 06:08] LABS: ATYPICAL LYMPHOCYTES 2 %; LYMPHOCYTES % (MANUAL) 16 %; MONOCYTES % (MANUAL) 8 %; NEUTROPHILS % (MANUAL) 74 %
[2019-10-23] MEDS ORDERED: SULF1TAB35 PO (06:21)
[2019-10-23] MEDS ORDERED: ACHD5005 PO (06:21)
[2019-10-23] MEDS ORDERED: CEPH500T PO (06:21)
[2019-10-23 06:36] VITALS: BP 162/108
--- NOTE | 2019-10-23 06:59 | Diagnostic Imaging Report ---
INDICATION: Pain, cough. COMPARISON: 01/21/2019 TECHNIQUE: Single radiograph of the chest dated 10/23/2019. FINDINGS: The cardiac silhouette is stable and within normal limits. No significant pulmonary vascular congestion. The lungs are clear. No pleural effusion. No pneumothorax. No acute osseous abnormality. IMPRESSION: Stable examination without acute cardiopulmonary abnormality. Dictated by: Dictated on workstation # [id number]
== END 2019-10-23 06:44 | disposition home or self-care (01) ==
LOC: EDUNIT# 03:56 → ER 03:58
DX: L03.115 Cellulitis of right lower limb (principal); M54.32 Sciatica, left side; S40.029A Contusion of unspecified upper arm, initial encounter; E11.9 Type 2 diabetes mellitus without complications; F17.210 Nicotine dependence, cigarettes, uncomplicated; Z90.710 Acquired absence of both cervix and uterus; Z88.6 Allergy status to analgesic agent; Z88.5 Allergy status to narcotic agent; Z85.41 Personal history of malignant neoplasm of cervix uteri; Z82.49 Family history of ischemic heart disease and other diseases of the circulatory system; W22.8XXA Striking against or struck by other objects, initial encounter
CPT/HCPCS: 36415; 71045; 80053; 83605; 85007; 85027; 85610; 85730; 86141; 87040; 96374; 96375

== ENCOUNTER 2021-01-09 20:21 | Inpatient (IN) | payer SELFPAY ==
[~2021-01-09] VITALS: Ht 172 cm; Wt 88.0 kg
[~2021-01-09 20:21] MED LIST changes: +CEPH500T PO
[2021-01-09] MEDS ORDERED: LACTATED RINGERS 1,000 ML IV ONE (21:00)
[2021-01-09] MEDS ORDERED: IBUPROFEN 800 MG (MOTRIN) TAB PO ONE (21:00)
--- NOTE | 2021-01-09 21:08 | ED General ---
General Chief Complaint: General Problems/Pain Stated Complaint: DENTAL PAIN/R LEG SWELLING/REDNESS Nursing Triage Note: PT TO ED W/ C/O DENTAL PAIN ONSET LAST NOC ET RLE REDNESS ONSET TODAY. PT REPORTS HX OF CELLULITIS. DENIES INJURY Nursing Sepsis Screen: No Definite Risk Source of Information: Patient Exam Limitations: No Limitations History of Present Illness Date Seen by Provider: Jan 09, 2021 Time Seen by Provider: 21:05 Initial Comments To ER with onset of right lower extremity redness today. She now has had cellulitis in the right lower extremity before. She is diabetic. She states count includes the [facility] has been out of [facility] so she has not had that to manage her diabetes. She also has not been able to check her blood sugars because she has been out of lancets and test strips for several months. She does have a fever on arrival. Timing/Duration: 1-2 Days Severity: Moderate Associated Systoms: Denies Symptoms Allergies and Home Medications Allergies Coded Allergies: aspirin (Unverified Allergy, Mild, UPSET STOMACH, 01/24/09) codeine (Unverified Allergy, Mild, HIVES, 01/24/09) Home Medications Acetaminophn/Pyril Mal/Caffein 1 Each Tablet, 1 TAB PO Q6H PRN for PAIN-MILD, (Reported) Cephalexin 500 Mg Capsule, 500 MG PO Q6H . Prescribed by: DILSHAD JOINER on 01/21/19 122 Cephalexin 500 Mg Tablet, 500 MG PO QID Prescribed by: HAYLEY THAKKAR on 10/23/19620 Dulaglutide 0.75 Mg/0.5 Ml Pen.injctr, 0.75 MG SQ Fr, (Reported) Hydrocodone Bit/Acetaminophen 1 Tab Tab, 1 TAB PO Q4H PRN for PAIN-MODERATE Prescribed by: EDDIE CHAND on 01/25/19932 Hydrocodone Bit/Acetaminophen 1 Tab Tab, 1 EACH PO Q4-6HR PRN for PAIN-MODERATE Prescribed by: HAYLEY THAKKAR on 10/23/19620 Sulfamethoxazole/Trimethoprim 1 Each Tablet, 1 EACH PO BID Prescribed by: EDDIE CHAND on 01/25/19932 Sulfamethoxazole/Trimethoprim 1 Each Tablet, 1 EACH PO BID Prescribed by: HAYLEY THAKKAR on 10/23/19620 Patient Home Medication List Home Medication List Reviewed: Yes Review of Systems Review of Systems Constitutional: see HPI, chills, fever EENTM: see HPI Respiratory: no symptoms reported Cardiovascular: no symptoms reported Genitourinary: no symptoms reported Musculoskeletal: no symptoms reported Skin: no symptoms reported Psychiatric/Neurological: No Symptoms Reported Hematologic/Lymphatic: No Symptoms Reported Past Yjohwgk-Irhgpd-Anqcst Hx Patient Social History Alcohol Use: Occasionally Uses 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 Smoking Status: Current Everyday Smoker Type Used: Cigarettes 2nd Hand Smoke Exposure: Yes Recent Infectious Disease Expo: No Recent Hopitalizations: No Immunizations Up To Date PED Vaccines UTD: No Seasonal Allergies Seasonal Allergies: No Past Medical History Surgeries: Yes (SCALP LACERATION REPAIR) Abdominal, Hysterectomy Respiratory: No Cardiac: Yes Hypertension Neurological: 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 Genitourinary: No Gastrointestinal: Yes (ABDOMINAL HERNIA REPAIR A CHILD) Abdominal Hernia Musculoskeletal: No Endocrine: Yes ( REPORTS NONCOMPLIANT 01/09/2021) Diabetes, Non-Insulin dep HEENT: No Cancer: Yes Cervical Did You Recieve Any Treatments: Yes What Type of Treatment Did You: Chemotherapy Psychosocial: No Integumentary: Yes Eczema, Psoriasis Blood Disorders: No Family Medical History Heart Disease, Diabetes, Hypertension Physical Exam Vital Signs Vital Signs - First Documented 01/09/21 20:49 Temp 37.8 Pulse 116 Resp 20 B/P (MAP) 163/107 (125) Pulse Ox 96 O2 Delivery Room Air Capillary Refill : Less Than 3 Seconds Height, Weight, BMI Height: 5'8.00" Weight: 192lbs. 0.0oz. 87.845313bj; 27.00 BMI Method:Actual General Appearance: No Apparent Distress, WD/WN, Other Eyes: Bilateral Eye Normal Inspection, Bilateral Eye PERRL, Bilateral Eye EOMI Neck: Full Range of Motion, Normal Inspection Respiratory: No Accessory Muscle Use, No Respiratory Distress Cardiovascular: Normal Peripheral Pulses, Tachycardia Gastrointestinal: Normal Bowel Sounds, Non Tender, Soft Extremity: Normal Capillary Refill, Other (To the anterolateral aspect of the right lower extremity there is some bright red erythema not well demarcated consistent with cellulitis. This extends up to nearly the knee. This began this morning. To the anterolateral ankle there is some thickened scaly skin consistent with psoriasis.) Neurologic/Psychiatric: Alert, Oriented x3 Focused Exam Lactate Level 01/09/21 21:02: Lactic Acid Level 1.66 Lactic Acid Level Laboratory Tests Test 01/09/21 21:02 Lactic Acid Level 1.66 MMOL/L (0.50-2.00) Progress/Results/Core Measures Suspected Sepsis Recent Fever Within 48 Hours: No Infection Criteria Present: None New/Unexplained Altered Menta: No Sepsis Screen: No Definite Risk SIRS Temperature: Pulse: 116 Respiratory Rate: 20 Laboratory Tests 01/09/21 21:02: White Blood Count 11.9H Blood Pressure 163 /107 Mean: 125 01/09/21 21:02: Lactic Acid Level 1.66 Laboratory Tests 01/09/21 21:02: Creatinine 0.96, Platelet Count 266, Total Bilirubin 0.5 Results/Orders Lab Results Laboratory Tests Test 01/09/21 21:02 01/09/21 21:15 Range/Units White Blood Count 11.9 H 4.3-11.0 10^3/uL Red Blood Count 4.99 3.80-5.11 10^6/uL Hemoglobin 15.0 11.5-16.0 g/dL Hematocrit 44 35-52 % Mean Corpuscular Volume 87 80-99 fL Mean Corpuscular Hemoglobin 30 25-34 pg Mean Corpuscular Hemoglobin Concent 34 32-36 g/dL Red Cell Distribution Width 12.2 10.0-14.5 % Platelet Count 266 130-400 10^3/uL Mean Platelet Volume 10.2 9.0-12.2 fL Immature Granulocyte % (Auto) 1 % Neutrophils (%) (Auto) 85 H 42-75 % Lymphocytes (%) (Auto) 10 L 12-44 % Monocytes (%) (Auto) 4 0-12 % Eosinophils (%) (Auto) 0 0-10 % Basophils (%) (Auto) 0 0-10 % Neutrophils # (Auto) 10.1 H 1.8-7.8 10^3/uL Lymphocytes # (Auto) 1.2 1.0-4.0 10^3/uL Monocytes # (Auto) 0.5 0.0-1.0 10^3/uL Eosinophils # (Auto) 0.0 0.0-0.3 10^3/uL Basophils # (Auto) 0.0 0.0-0.1 10^3/uL Immature Granulocyte # (Auto) 0.1 0.0-0.1 10^3/uL Sodium Level 131 L 135-145 MMOL/L Potassium Level 4.0 3.6-5.0 MMOL/L Chloride Level 96 L 98-107 MMOL/L Carbon Dioxide Level 24 21-32 MMOL/L Anion Gap 11 5-14 MMOL/L Blood Urea Nitrogen 12 7-18 MG/DL Creatinine 0.96 0.60-1.30 MG/DL Estimat Glomerular Filtration Rate 60 BUN/Creatinine Ratio 13 Glucose Level 311 H 70-105 MG/DL Lactic Acid Level 1.66 0.50-2.00 MMOL/L Calcium Level 9.2 8.5-10.1 MG/DL Corrected Calcium 9.2 8.5-10.1 MG/DL Total Bilirubin 0.5 0.1-1.0 MG/DL Aspartate Amino Transf (AST/SGOT) 13 5-34 U/L Alanine Aminotransferase (ALT/SGPT) 20 0-55 U/L Alkaline Phosphatase 98 40-136 U/L Total Protein 7.8 6.4-8.2 GM/DL Albumin 4.0 3.2-4.5 GM/DL My Orders Orders - DILSHAD JOINER APRN Cbc With Automated Diff (01/09/21 20:54) Comprehensive Metabolic Panel (01/09/21 20:54) Blood Culture (01/09/21 20:54) Lactic Acid Analyzer (01/09/21 20:54) Ed Iv/Invasive Line Start (01/09/21 20:54) Sputum Culture (01/09/21 20:54) Urinalysis (01/09/21 20:54) Urine Culture (01/09/21 20:54) Protime With Inr (01/09/21 20:54) Partial Thromboplastin Time (01/09/21 20:54) Chest 1 View, Ap/Pa Only (01/09/21 20:54) Vital Signs Adult Sepsis Patie Q15M (01/09/21 20:54) O2 (01/09/21 20:54) Remove Rings In Anticipation O (01/09/21 20:54) Lactated Ringers (Lr 1000 Ml Iv Solution (01/09/21 21:00) Ibuprofen Tablet (Motrin Tablet) (01/09/21 21:00) Medications Given in ED Current Medications Medications Dose Ordered Sig/Rhonda Route Start Time Stop Time Status Last Admin Dose Admin Ibuprofen 800 mg ONCE ONCE PO 01/09/21 21:00 01/09/21 21:05 DC 01/09/21 21:14 800 MG Lactated Ringer's 1,000 ml @ 0 mls/hr Q0M ONCE IV 01/09/21 21:00 01/09/21 21:05 DC 01/09/21 21:14 0 MLS/HR Vital Signs/I&O 01/09/21 20:49 Temp 37.8 Pulse 116 Resp 20 B/P (MAP) 163/107 (125) Pulse Ox 96 O2 Delivery Room Air Capillary Refill : Less Than 3 Seconds Blood Pressure Mean: 125 Departure Communication (Admissions) Time/Spoke to Admitting Phy: 21:[address] Chand, will admit Zosyn and vancomycin. Impression Primary Impression: Cellulitis of right leg Additional Impressions: Sepsis Diabetes mellitus Disposition: ADMITTED INPATIENT Condition: Stable Admissions Decision to Admit Reason: Admit from ER (General) Decision to Admit/Date: Jan 09, 2021 Time/Decision to Admit Time: 21:08 Departure-Patient Inst. Referrals: SYLVIA HARGROVE MD (PCP/Family) Primary Care Physician DILSHAD JOINER APRN Jan 09, 2021 21:08
[2021-01-09 21:14] LABS: BASOPHILS % (AUTO) 0 % (0-10); EOSINOPHILS % (AUTO) 0 % (0-10); HEMATOCRIT 44 % (35-52); LYMPHOCYTES # (AUTO) 1.2 10^3/uL (1.0-4.0); LYMPHOCYTES % (AUTO) 10 % (12-44); MEAN CORPUSCULAR HEMOGLOBIN 30 pg (25-34); MEAN CORPUSCULAR HGB CONC 34 g/dL (32-36); MEAN CORPUSCULAR VOLUME 87 fL (80-99); MEAN PLATELET VOLUME 10.2 fL (9.0-12.2); MONOCYTES # (AUTO) 0.5 10^3/uL (0.0-1.0); MONOCYTES % (AUTO) 4 % (0-12); NEUTROPHILS # (AUTO) 10.1 10^3/uL (1.8-7.8); NEUTROPHILS % (AUTO) 85 % (42-75); PLATELET COUNT 266 10^3/uL (130-400); WHITE BLOOD COUNT 11.9 10^3/uL (4.3-11.0)
[2021-01-09 21:26] LABS: BILIRUBIN,URINE NEGATIVE (NEGATIVE); CLARITY,URINE SL CLOUDY; COLOR,URINE YELLOW; GLUCOSE, URINE (UA) 3+ (NEGATIVE); KETONES,URINE TRACE (NEGATIVE); LEUKOCYTE ESTERASE ,URINE NEGATIVE (NEGATIVE); NITRITE,URINE POSITIVE (NEGATIVE); PH,URINE 5.5 (5-9); PROTEIN,URINE NEGATIVE (NEGATIVE)
[2021-01-09 21:32] LABS: BILIRUBIN,TOTAL 0.5 MG/DL (0.1-1.0); CALCIUM 9.2 MG/DL (8.5-10.1); CREATININE SERUM 0.96 MG/DL (0.60-1.30); TOTAL PROTEIN 7.8 GM/DL (6.4-8.2)
[2021-01-09 21:35] LABS: INR 1.1 (0.8-1.4); PROTHROMBIN TIME PATIENT 14.5 SEC (12.2-14.7)
[2021-01-09 21:36] LABS: RBC,URINE 0-2 /HPF
--- NOTE | 2021-01-09 21:36 | Diagnostic Imaging Report ---
INDICATION: Tooth abscess and cellulitis with fever. Comparison is made with prior examination from 10/23/2019. FINDINGS: The heart size, mediastinal configuration, and pulmonary vascularity are within normal limits. There is no pleural effusion, pneumothorax, or pneumonia. The osseous structures are unremarkable. IMPRESSION: No acute cardiopulmonary abnormality. Dictated by: Dictated on workstation # [id number]
[2021-01-09 21:37] LABS: AMORPHOUS SEDIMENT,UR FEW AMOR URATES /LPF; BACTERIA,URINE LARGE /HPF; WBC,URINE 25-50 /HPF
[2021-01-09] MEDS ORDERED: HYDROcodone/APAP 5 MG/325 MG (LORTAB) TAB PO ONE (22:00)
[2021-01-09] MEDS ORDERED: ONDANSETRON 4 MG/2 ML (SDV) Z0FRAN IVP PRN (23:30)
[2021-01-09] MEDS ORDERED: IBUPROFEN 600 MG (MOTRIN) TAB PO PRN (23:30)
[2021-01-09] MEDS ORDERED: ACETAMINOPHEN 325 MG TABLET PO PRN (23:30)
[2021-01-10] MEDS ORDERED: PIPERACILLIN/TAZOBACTAM 4.5 GM in NS (IVPB) 100 ML IV ONE ×2
[2021-01-10] MEDS ORDERED: VANCOMYCIN 1 GM/NS 250 ML IVPB IV NR ×2
[2021-01-10 00:41] VITALS: BP 128/80
[2021-01-10] MEDS ORDERED: VANCOMYCIN 750 MG/NS 250 ML IVPB IV NR ×2 (01:00)
[2021-01-10] MEDS ORDERED: PIPERACILLIN/TAZO 4.5 GM VIAL (ZOSYN) IV ONE (01:04)
[2021-01-10] MEDS ORDERED: VANCOMYCIN 1000 MG/VIAL ONE (01:05)
[2021-01-10] MEDS ORDERED: VANCOMYCIN 750 MG/VIAL IV ONE (01:05)
[2021-01-10] MEDS ORDERED: NS (IVPB) 250 ML ONE ×2 (01:05→01:06)
[2021-01-10] MEDS ORDERED: NS (IVPB) 100 ML ONE (01:05)
[2021-01-10] MEDS: LACTATED RINGERS 1,000 ML IV SCH ×3 (01:32→11:11)
[2021-01-10 04:16] VITALS: BP 136/77
[2021-01-10] MEDS: inSUlin ASPART (NovoLOG) 1 UNIT/0.01 ML (CHARGE PER UNIT) SC SCH ×4 (05:29→20:49)
[2021-01-10] MEDS: HYDROcodone/APAP 5 MG/325 MG (LORTAB) TAB PO PRN ×2 (05:29→19:55)
[2021-01-10] MEDS ORDERED: PIPERACILLIN/TAZO 4.5 GM/NS 100 ML IV SCH ×2 (06:00)
[2021-01-10 07:24] VITALS: BP 142/78
[2021-01-10 09:11] LABS: BASOPHILS # (AUTO) 0.1 10^3/uL (0.0-0.1); BASOPHILS % (AUTO) 1 % (0-10); EOSINOPHILS % (AUTO) 0 % (0-10); HEMATOCRIT 39 % (35-52); HEMOGLOBIN 13.2 g/dL (11.5-16.0); LYMPHOCYTES # (AUTO) 1.5 10^3/uL (1.0-4.0); LYMPHOCYTES % (AUTO) 14 % (12-44); MEAN CORPUSCULAR HEMOGLOBIN 30 pg (25-34); MEAN CORPUSCULAR HGB CONC 34 g/dL (32-36); MEAN CORPUSCULAR VOLUME 89 fL (80-99); MEAN PLATELET VOLUME 10.3 fL (9.0-12.2); MONOCYTES # (AUTO) 0.5 10^3/uL (0.0-1.0); MONOCYTES % (AUTO) 5 % (0-12); NEUTROPHILS # (AUTO) 8.7 10^3/uL (1.8-7.8); NEUTROPHILS % (AUTO) 80 % (42-75); PLATELET COUNT 242 10^3/uL (130-400); WHITE BLOOD COUNT 10.8 10^3/uL (4.3-11.0)
[2021-01-10] MEDS: PIPERACILLIN/TAZO 4.5 GM/NS 100 ML IV SCH ×4 (09:30→17:04)
[2021-01-10 09:32] LABS: ALBUMIN 3.5 GM/DL (3.2-4.5); CHLORIDE 100 MMOL/L (98-107); POTASSIUM 3.6 MMOL/L (3.6-5.0); SODIUM 133 MMOL/L (135-145)
[2021-01-10 09:33] LABS: CALCIUM 8.6 MG/DL (8.5-10.1)
[2021-01-10 09:34] LABS: GLUCOSE 225 MG/DL (70-105); TOTAL PROTEIN 6.6 GM/DL (6.4-8.2)
[2021-01-10 09:35] LABS: CARBON DIOXIDE 24 MMOL/L (21-32)
[2021-01-10 09:36] LABS: BILIRUBIN,TOTAL 0.5 MG/DL (0.1-1.0)
[2021-01-10 09:38] LABS: ALKALINE PHOSPHATASE 82 U/L (40-136); CREATININE SERUM 0.84 MG/DL (0.60-1.30); GFR ESTIMATED > 60
[2021-01-10 09:39] LABS: BUN/CREATININE RATIO 12
[2021-01-10 09:41] LABS: ALANINE AMINOTRANSFERASE 17 U/L (0-55)
[2021-01-10] MEDS: VANCOMYCIN 1250 MG/NS 250 ML IVPB IV SCH ×4 (11:11→23:57)
[2021-01-10] MEDS ORDERED: NICOTINE 21 MG (NICODERM) PATCH TD ONE (11:15)
--- NOTE | 2021-01-10 11:19 | Diagnostic Imaging Report ---
INDICATION: Right lower extremity edema, redness and warmth. TECHNIQUE: Multiple real-time grayscale images were obtained over the right lower extremity in various projections, bilaterally. Additional duplex Doppler and color Doppler images were also obtained. CORRELATION STUDY: 01/23/2019 FINDINGS: Color and grayscale sonographic images demonstrate no intraluminal defect within the visualized portion of the common femoral, superficial femoral and/or popliteal veins to suggest thrombus formation. These vessels demonstrate normal response to compression and augmentation. There is presence of enlarged right inguinal lymph nodes with prominent vascularity. IMPRESSION: 1. Negative for deep venous thrombosis of the right leg. 2. Enlarged right inguinal lymph node is prominent vascular blood flow. May reflect underlying inflammatory/infectious etiology. Dictated by: Dictated on workstation # [id number]
--- NOTE | 2021-01-10 12:16 | History & Physical-Hospitalist ---
BARBIE RON, MED STUDENT 01/10/21 1216: History of Present Illness HPI/Chief Complaint Ms. Ortiz is a 55 y/o F w/ PMH of DM, lower extremity cellulitis, HTN, cervical cancer, and meth abuse presenting for right lower extremity pain and redness. The pain and redness started approximately 1-2 days ago. The pain is rated as a constant sharp pain located around the sides and back of her legs. The redness is located in the same distribution. She reports a previous history of cellulitis in the same the extremity with visible scars on the anterior portion of her lower extremity. The pain does not radiate anywhere, and nothing has made the pain better or worse except pain medications. She does report that she has been out of her diabetes and HTN medications because the clinic she visits no longer has free samples to offer her. Source: patient Exam Limitations: no limitations Date Seen 01/10/21 Attending Physician Debi Chand DO PCP Diaz Forte MD Referring Physician Date of Admission Jan 09, 2021 at 21:22 Home Medications & Allergies Home Medications Reviewed patient Home Medication Reconciliation performed by pharmacy medication reconciliations ophthalmic technician apprentice and/or nursing. Patients Allergies have been reviewed. Allergies Allergies Coded Allergies aspirin (Unverified Allergy, Mild, UPSET STOMACH, 01/24/09) codeine (Unverified Allergy, Mild, HIVES, 01/24/09) mushroom (Unverified Allergy, Unknown, 01/10/21) Pt states "deathly allergic" to mushrooms. Patient Social History Tobacco Use?: Yes Tobacco type used: Cigarettes Smoking Status: Current Everyday Smoker Use of E-Cig and/or Vaping dev: No Substance use?: No Alcohol Use?: Yes Alcohol Frequency: Rarely Pt stated abuse/neglect: No Immunizations Up To Date Influenza Vaccine Up-to-Date: No; Not Current Tetanus Booster (TDap): More Than 5 Years Hepatitis A: No Hepatitis B: No TB Skin Test: None Current Status status: No status: No Do you have an Advance Directi: No Communicates: Verbally Primary Language: Egyptian Preferred Spoken Language: Egyptian Is interpretation needed?: No Implanted or Applied Medical D: None Past Medical History Cervical cancer s/p chemotherapy HTN DM Family Medical History Family Hx: Mother - HTN, DM Father - HTN Sister - HTN Brother - HTN Review of Systems Constitutional: No no symptoms reported, No see HPI, No chills, No diaphoresis, No dizziness; fever; No malaise, No weakness, No weight gain, No weight loss, No other EENTM: No see HPI, No no symptoms reported, No ear discharge, No hearing loss, No ear pain, No blurred vision, No double vision, No eye pain, No tearing, No vision loss, No dental problems, No hoarseness, No mouth pain, No mouth swelling, No epistaxis, No nose congestion, No nose pain, No throat pain, No throat swelling, No other Respiratory: No no symptoms reported, No see HPI, No cough, No dyspnea on exertion, No hemoptysis, No orthopnea, No phlegm, No short of breath, No stridor, No wheezing, No other Cardiovascular: No no symptoms reported, No see HPI, No chest pain, No edema, No Hx of Intervention, No palpitations, No syncope, No vascular heart diseas, No other Gastrointestinal: No RUQ, No LUQ, No RLQ, No LLQ, No no symptoms reported, No see HPI, No abdominal pain, No constipation, No diarrhea, No dysphagia, No hematemesis, No heartburn, No jaundice, No loss of appetite, No melena, No nausea, No vomiting, No other Genitourinary: frequency Musculoskeletal: muscle cramps Skin: change in color, rash Physical Exam Physical Exam Vital Signs Vital Signs - First Documented 01/09/21 20:49 Temp 37.8 Pulse 116 Resp 20 B/P (MAP) 163/107 (125) Pulse Ox 96 O2 Delivery Room Air Capillary Refill : Less Than 3 Seconds Height, Weight, BMI Height: 5'8.00" Weight: 192lbs. 0.0oz. [id number]; 29.74 BMI Method:Actual Eyes: Bilateral Eye Normal Inspection, Bilateral Eye EOMI Neck: Full Range of Motion, Normal Inspection Respiratory: Chest Non Tender, Lungs Clear, Normal Breath Sounds, No Accessory Muscle Use, No Respiratory Distress Cardiovascular: Regular Rate, Rhythm, No Edema, No Gallop, No JVD, No Murmur, Normal Peripheral Pulses Gastrointestinal: Normal Bowel Sounds, No Organomegaly, No Pulsatile Mass, Non Tender, Soft Rectal: Deferred Back: Normal Inspection, No CVA Tenderness, No Vertebral Tenderness Extremity: Normal Capillary Refill, Normal Inspection, Normal Range of Motion, Non Tender, No Calf Tenderness, Inflammation Neurologic/Psychiatric: Alert, Oriented x3 Skin: Warm/Dry, Erythema, Rash Results Results/Procedures Labs Laboratory Tests 01/09/21 21:02 01/10/21 08:50 Patient resulted labs reviewed. Imaging: Reviewed Imaging Films, Reviewed Imaging Report Assessment/Plan Admission Diagnosis Right lower extremity cellulitis Admission Status: Inpatient Order (span 2 midnights) Assessment and Plan Ms. Yu is a 55 y/o F w/ PMH of DM, HTN, and cellulitis presenting for right lower extremity cellulitis 2/2 to uncontrolled DM #Cellulitis - Right lower extremity erythematous and warm to touch - Previous right lower extremity cellulitis scars present - Uncontrolled DM - WBC 11.9 - Temp 37.8 on admission - LR - Vanc + Piptazo - No crepitus or blue/black discoloration noted on wound site Plan: > Wound cultures > Continue Vanc + Piptazo > Hold fluids, PO intake is adequate > No need for imaging at this point #DM - Blood sugar 311 on admission - Ketones in urine - Bicarb 24 Plan: > Sliding scale insulin > Monitor Blood sugars #HTN - BP 136/77 this AM - No listed O/p BP medication per chart review Plan: > Continue to monitor > Ascertain o/p BP regiment #Tobacco - Current smoker Plan: > Nicotine replacement Dispo: Continue inpatient care CHANDDEBI PINO 01/11/21 0923: History of Present Illness HPI/Chief Complaint CC: Left lower tooth abscess with right leg cellulitis HPI: This is a 55yoWF clinic patient of [facility] who presents to the med surg with right leg cellulitis and left molar abscess. IV abx maintained and patient feels better. Source: patient Exam Limitations: no limitations Time Seen by a Provider: 10:30 Patient Social History Marrital Status: single Employed/Student: unemployed Smoking Status: Current Everyday Smoker Review of Systems Constitutional: see HPI, fever, weakness Musculoskeletal: muscle cramps Physical Exam Physical Exam General Appearance: No Apparent Distress, Chronically ill Eyes: Right Eye Normal Inspection, Right Eye PERRL HEENT: PERRL/EOMI, Normal ENT Inspection, Pharynx Normal, Moist Mucous Membranes Neck: Full Range of Motion, Normal Inspection, Non Tender Respiratory: Chest Non Tender, Lungs Clear, Normal Breath Sounds, No Accessory Muscle Use, No Respiratory Distress Cardiovascular: Regular Rate, Rhythm, No Edema, No Gallop, No JVD, No Murmur, Normal Peripheral Pulses Gastrointestinal: Normal Bowel Sounds, No Organomegaly, No Pulsatile Mass, Non Tender, Soft Back: Normal Inspection, No CVA Tenderness, No Vertebral Tenderness Extremity: Normal Capillary Refill, Normal Inspection, Normal Range of Motion, Non Tender, No Calf Tenderness, No Pedal Edema Neurologic/Psychiatric: Alert, Oriented x3, No Motor/Sensory Deficits, Normal Mood/Affect Skin: Normal Color, Warm/Dry Lymphatic: No Adenopathy Assessment/Plan Admission Diagnosis Sepsis Right leg cellulitis Tooth abscess IV abx Admission Status: Inpatient Order (span 2 midnights) Reason for Inpatient Admission: sepsis with cellulits Supervisory-Addendum Brief Verification & Attestation Participated in pt care: history, MDM, physical Personally performed: exam, history, MDM, supervision of care Care discussed with: Medical Student Procedures: n/a Results interpretation: Verified all documentation Verification and Attestation of Medical Student E/M Service A medical student performed and documented this service in my presence. I reviewed and verified all information documented by the medical student and made modifications to such information, when appropriate. I personally performed the physical exam and medical decision making. Debi Chand, Jan 11, 2021,09:24 BARBIE RON, MED STUDENT Jan 10, 2021 12:16 DEBI CHAND DO Jan 11, 2021 09:23
[2021-01-10 13:00] VITALS: BP 142/81
[2021-01-10] MEDS: NICOTINE 21 MG (NICODERM) PATCH TD SCH (13:36)
[2021-01-10 16:00] VITALS: BP 138/82
[2021-01-10 19:25] VITALS: BP 163/81
[2021-01-11] VITALS: BP 160/78
[2021-01-11] MEDS: PIPERACILLIN/TAZO 4.5 GM/NS 100 ML IV SCH ×4 (02:20→10:40)
[2021-01-11 04:55] VITALS: BP 149/78
[2021-01-11 05:38] LABS: BASOPHILS # (AUTO) 0.1 10^3/uL (0.0-0.1); BASOPHILS % (AUTO) 1 % (0-10); EOSINOPHILS # (AUTO) 0.1 10^3/uL (0.0-0.3); EOSINOPHILS % (AUTO) 1 % (0-10); HEMATOCRIT 39 % (35-52); HEMOGLOBIN 13.1 g/dL (11.5-16.0); LYMPHOCYTES % (AUTO) 22 % (12-44); MEAN CORPUSCULAR HEMOGLOBIN 30 pg (25-34); MEAN CORPUSCULAR HGB CONC 34 g/dL (32-36); MEAN CORPUSCULAR VOLUME 89 fL (80-99); MEAN PLATELET VOLUME 10.2 fL (9.0-12.2); MONOCYTES # (AUTO) 0.6 10^3/uL (0.0-1.0); MONOCYTES % (AUTO) 7 % (0-12); NEUTROPHILS # (AUTO) 6.2 10^3/uL (1.8-7.8); NEUTROPHILS % (AUTO) 69 % (42-75); PLATELET COUNT 251 10^3/uL (130-400)
[2021-01-11 05:59] LABS: ALANINE AMINOTRANSFERASE 23 U/L (0-55); ALBUMIN 3.3 GM/DL (3.2-4.5); ALKALINE PHOSPHATASE 73 U/L (40-136); BILIRUBIN,TOTAL 0.5 MG/DL (0.1-1.0); BUN/CREATININE RATIO 13; CALCIUM 8.6 MG/DL (8.5-10.1); CARBON DIOXIDE 23 MMOL/L (21-32); CHLORIDE 102 MMOL/L (98-107); CREATININE SERUM 0.79 MG/DL (0.60-1.30); GFR ESTIMATED > 60; GLUCOSE 173 MG/DL (70-105); POTASSIUM 3.8 MMOL/L (3.6-5.0); SODIUM 136 MMOL/L (135-145); TOTAL PROTEIN 6.7 GM/DL (6.4-8.2)
[2021-01-11] MEDS: inSUlin ASPART (NovoLOG) 1 UNIT/0.01 ML (CHARGE PER UNIT) SC SCH ×2 (06:04→11:44)
[2021-01-11 08:00] VITALS: BP 143/90
[2021-01-11] MEDS ORDERED: NICOTINE PATCH REMOVAL TP SCH (08:59)
[2021-01-11] MEDS ORDERED: NICOTINE 21 MG (NICODERM) PATCH TD SCH (09:00)
[2021-01-11] MEDS: NICOTINE 21 MG (NICODERM) PATCH TD SCH (10:40)
[2021-01-11] MEDS ORDERED: TROUGH ORDER-PHARMACY XX NR (11:00)
[2021-01-11 11:04] VITALS: BP 142/84
[2021-01-11] MEDS ORDERED: SULF1TAB35 PO (12:59)
[2021-01-11] MEDS ORDERED: NICO-685 TD (12:59)
[2021-01-11] MEDS ORDERED: CLIN300C12 PO (12:59)
--- NOTE | 2021-01-11 13:00 | Discharge Summary ---
Discharge Summary Hospital Course Was the Problem List Reviewed?: Yes Problems/Dx: (1) Cellulitis of right leg Status: Acute Hospital Course Date of Admission: Jan 09, 2021 at 21:22 Admission Diagnosis : Family Physician/Provider: Diaz Forte MD Date of Discharge: 01/11/21 Discharge Diagnosis: right leg cellulitis, dental abscess Hospital Course: Brief course after admitted and placed on broad spectrum abx. Rapid improvement of the leg. Dental abscess will require dental clinic management. Labs and Pending Lab Test: Laboratory Tests 01/10/21 15:31: Glucometer 194H 01/10/21 20:03: Glucometer 223H 01/11/21 05:20: White Blood Count 9.0, Red Blood Count 4.38, Hemoglobin 13.1, Hematocrit 39, Mean Corpuscular Volume 89, Mean Corpuscular Hemoglobin 30, Mean Corpuscular Hemoglobin Concent 34, Red Cell Distribution Width 12.2, Platelet Count 251, Mean Platelet Volume 10.2, Immature Granulocyte % (Auto) 1, Neutrophils (%) (Au to) 69, Lymphocytes (%) (Auto) 22, Monocytes (%) (Auto) 7, Eosinophils (%) (Auto) 1, Basophils (%) (Auto) 1, Neutrophils # (Auto) 6.2, Lymphocytes # (Auto) 2.0, Monocytes # (Auto) 0.6, Eosinophils # (Auto) 0.1, Basophils # (Auto) 0.1, Immature Granulocyte # (Auto) 0.1, Sodium Level 136, Potassium Level 3.8, Chloride Level 102, Carbon Dioxide Level 23, Anion Gap 11, Blood Urea Nitrogen 10, Creatinine 0.79, Estimat Glomerular Filtration Rate > 60, BUN/Creatinine Ratio 13, Glucose Level 173H, Calcium Level 8.6, Corrected Calcium 9.2, Total Bilirubin 0.5, Aspartate Amino Transf (AST/SGOT) 18, Alanine Aminotransferase (ALT/SGPT) 23, Alkaline Phosphatase 73, Total Protein 6.7, Albumin 3.3 01/11/21 11:03: Vancomycin Level Trough 8.4L 01/11/21 11:07: Glucometer 279H Microbiology 01/09/21 Urine Culture - Preliminary, Resulted Escherichia coli 01/09/21 Blood Culture - Preliminary, Resulted Streptococcus pyogenes Grp A Home Meds Active Clindamycin HCl 300 Mg Capsule 300 Mg PO TID Bactrim Ds Tablet (Sulfamethoxazole/Trimethoprim) 1 Each Tablet 1 Each PO BID Nicotine Patch (Nicotine) 1 Each Patch.td24 21 Mg TD DAILY Assessment/Pt Instructions [facility] Discharge Planning: <30 minutes discharge planning Discharge Instructions Discharge Diet: ADA Diet Discharge Physical Examination Vital Signs Vital Signs Date Time Temp Pulse Resp B/P (MAP) Pulse Ox O2 Delivery O2 Flow Rate FiO2 01/11/21 12:34 96 01/11/21 11:04 36.4 20 142/84 (103) 94 Room Air General Appearance: No Apparent Distress, WD/WN, Chronically ill Respiratory: Lungs Clear Cardiovascular: Regular Rate, Rhythm Skin: Other (right leg no erythema) Neurologic/Psychiatric: Alert Allergies: Coded Allergies: aspirin (Unverified Allergy, Mild, UPSET STOMACH, 01/24/09) codeine (Unverified Allergy, Mild, HIVES, 01/24/09) mushroom (Unverified Allergy, Unknown, 01/10/21) Pt states "deathly allergic" to mushrooms. Discharge Summary Date of Admission Jan 09, 2021 at 21:22 Date of Discharge Discharge Date: Jan 11, 2021 Admission Diagnosis Sepsis Right leg cellulitis Tooth abscess IV abx EDDIE CHAND DO Jan 11, 2021 13:00
[2021-01-11] MEDS: VANCOMYCIN 1250 MG/NS 250 ML IVPB IV SCH ×2 (13:19)
== END 2021-01-11 14:00 | disposition home or self-care (01) | DRG 872 ==
LOC: EDUNIT# 20:21 → ER 20:22 → 4TH 21:22
PROVIDERS: ADMIT Internal Medicine; ATTEND Internal Medicine
DX: A41.9 Sepsis, unspecified organism (principal); L03.115 Cellulitis of right lower limb; K04.7 Periapical abscess without sinus; E11.9 Type 2 diabetes mellitus without complications; F17.210 Nicotine dependence, cigarettes, uncomplicated; I10 Essential (primary) hypertension; Z92.21 Personal history of antineoplastic chemotherapy; C53.9 Malignant neoplasm of cervix uteri, unspecified; Z79.82 Long term (current) use of aspirin; Z88.5 Allergy status to narcotic agent; F15.10 Other stimulant abuse, uncomplicated; Z88.6 Allergy status to analgesic agent
CPT/HCPCS: 36415; 71045; 80053; 80202; 81000; 82962; 83605; 85025; 85610; 85730; 87040; 87077; 87088; 87186

== ENCOUNTER 2021-05-08 22:38 | Emergency (ER) | payer SELFPAY ==
[~2021-05-08 22:38] MED LIST changes: +CLIN300C12 PO; +NICO-685 TD; -SULF1TAB35 PO; +SULF1TAB38 PO
--- NOTE | 2021-05-08 23:32 | ED General ---
General Stated Complaint: SPIDER BITE/FEVER/COUGH/SORE THROAT/SOB Source of Information: Patient (SOMEWHAT DIFFICULT HISTORIAN) History of Present Illness Date Seen by Provider: May 08, 2021 Time Seen by Provider: 23:00 Initial Comments PT ARRIVES VIA POV FROM HOME C/O POSSIBLE "SPIDER BITE" TO LEFT BUTTOCK FOR THE LAST COUPLE OF DAYS--DID NOT SEE OR FEEL ANYTHING BITE HER NO FEVER NO DRAINAGE NO STREAKS PT STATES SHE HAS HAD A LITTLE COUGH, BUT SMOKES 1-2 PPD NO FEVER/SWEATS/CHILLS NO LOSS OF TASTE OR SMELL NO SHORTNESS OF BREATH NO GI SYMPTOMS NO HEADACHE NO BODY ACHES NO FATIGUE NO SORE THROAT PT HAD COVID-19 VACCINES X 2 IN DECEMBER, PCP: NEAL-ROWAN Allergies and Home Medications Allergies Coded Allergies: aspirin (Unverified Allergy, Mild, UPSET STOMACH, 01/24/09) codeine (Unverified Allergy, Mild, HIVES, 01/24/09) mushroom (Unverified Allergy, Unknown, 01/10/21) Pt states "deathly allergic" to mushrooms. Home Medications Clindamycin HCl 300 Mg Capsule, 300 MG PO TID Prescribed by: EDDIE CHAND on 01/11/21 1259 Mupirocin 22 Gm Oint...g., 22 GM TP BID Prescribed by: COTY TONEY on 05/09/215 Nicotine 1 Each Patch.td24, 21 MG TD DAILY Prescribed by: EDDIE CHAND on 01/11/21 1259 Sulfamethoxazole/Trimethoprim 1 Each Tablet, 1 EACH PO BID Prescribed by: EDDIE CHAND on 01/11/21 1259 Sulfamethoxazole/Trimethoprim 1 Each Tablet, 1 EACH PO BID Prescribed by: COTY TONEY on 05/09/215 Review of Systems Review of Systems Constitutional: no symptoms reported; No chills, No diaphoresis, No fever, No malaise, No weakness EENTM: no symptoms reported Respiratory: see HPI, cough; No short of breath Cardiovascular: no symptoms reported; No chest pain Gastrointestinal: no symptoms reported Genitourinary: no symptoms reported Musculoskeletal: no symptoms reported Skin: see HPI Psychiatric/Neurological: No Symptoms Reported Hematologic/Lymphatic: No Symptoms Reported Immunological/Allergic: no symptoms reported Past Ltqgaeg-Jrrksr-Qeyvit Hx Immunizations Up To Date PED Vaccines UTD: No Seasonal Allergies Seasonal Allergies: No Past Medical History Surgeries: Yes (SCALP LACERATION REPAIR) Abdominal, Hysterectomy Respiratory: No Cardiac: Yes Hypertension Neurological: No 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 Genitourinary: No Gastrointestinal: Yes (ABDOMINAL HERNIA REPAIR A CHILD) Abdominal Hernia Musculoskeletal: No Endocrine: Yes ( REPORTS NONCOMPLIANT 01/09/2021) Diabetes, Non-Insulin dep HEENT: No Cancer: Yes Cervical Did You Recieve Any Treatments: Yes What Type of Treatment Did You: Chemotherapy Psychosocial: No Integumentary: Yes Eczema, Psoriasis Blood Disorders: No Family Medical History Heart Disease, Diabetes, Hypertension Mother - HTN, DM Father - HTN Sister - HTN Brother - HTN Physical Exam Vital Signs Vital Signs - First Documented 05/08/21 22:55 Temp 36.6 Pulse 99 Resp 16 B/P (MAP) 178/102 (127) Pulse Ox 97 O2 Delivery Room Air Capillary Refill : Height, Weight, BMI Height: 5'8.00" Weight: 192lbs. 0.0oz. 87.112685cu; 29.74 BMI Method:Actual General Appearance: No Apparent Distress, WD/WN, Other (DOES NOT APPEAR ILL OR TO BE IN ANY DISCOMFORT OR DISTRESS) HEENT: PERRL/EOMI, Normal ENT Inspection Neck: Normal Inspection Respiratory: Normal Breath Sounds, No Accessory Muscle Use, No Respiratory Distress Cardiovascular: Regular Rate, Rhythm, No Edema, No JVD, No Murmur, Normal Peripheral Pulses Gastrointestinal: Non Tender, Soft Back: Normal Inspection Extremity: Normal Range of Motion, No Pedal Edema Neurologic/Psychiatric: Alert, Oriented x3, No Motor/Sensory Deficits, Normal Mood/Affect, wildlife photographer II-XII Norm as Tested Skin: Normal Color, Warm/Dry Progress/Results/Core Measures Suspected Sepsis SIRS Temperature: Pulse: Respiratory Rate: Blood Pressure / Mean: Results/Orders Lab Results Laboratory Tests Test 05/08/21 23:05 Range/Units Influenza Type A (RT-PCR) Not Detected Not Detecte Influenza Type B (RT-PCR) Not Detected Not Detecte SARS-CoV-2 RNA (RT-PCR) Not Detected Not Detecte My Orders Orders - COTY TONEY DO Covid 19 Inhouse Test (05/08/21 22:59) Influenza A And B By Pcr (05/08/21 22:59) Tdap (Boostrix) Im (05/09/21 00:15) Vital Signs/I&O 05/08/21 22:55 Temp 36.6 Pulse 99 Resp 16 B/P (MAP) 178/102 (127) Pulse Ox 97 O2 Delivery Room Air Capillary Refill : Departure Impression Primary Impression: Cellulitis of left buttock Additional Impressions: Asrcalhada-rawxyiamf-fpsieec (DPT) vaccination administered at current visit Diabetes mellitus Disposition: 01 HOME, SELF-CARE Condition: Stable Departure-Patient Inst. Decision time for Depature: 23:55 Referrals: SYLVIA HARGROVE MD (PCP/Family) Primary Care Physician Patient Instructions: Cellulitis (Skin Infection), Adult ED, Diabetes and Infections, Diphtheria and Tetanus Toxoids, and Acellular Pertussis Vaccine, How to Keep Track of Your Blood Sugar Add. Discharge Instructions: MOIST HEAT TO AREA AT 2O MINUTE INTERVALS DO NOT PICK AT, POKE OR SQUEEZE THE AREA IF THE AREA OPENS UP ON IT'S OWN, YOU MAY USE PRESCRIPTION ANTIBIOTIC OINTMENT AND FRESH DRESSINGS TWICE A DAY FOLLOW UP WITH [facility] IN 2 DAYS FOR FURTHER CARE Scripts Naproxen (Naproxen) 500 Mg Tablet. 500 MG PO BID, #20 TAB Prov: COTY TONEY DO 05/09/21 Mupirocin (Mupirocin) 22 Gm Oint...g. 22 GM TP BID, #1 TUBE Prov: COTY TONEY DO 05/09/21 Sulfamethoxazole/Trimethoprim (Bactrim Ds Tablet) 1 Each Tablet 1 EACH PO BID, #20 TAB Prov: COTY TONEY DO 05/09/21 COTY TONEY DO May 08, 2021 23:32
[2021-05-09] MEDS ORDERED: SULF1TAB38 PO (00:06)
[2021-05-09] MEDS ORDERED: MUPI22OI2 TP (00:06)
[2021-05-09] MEDS ORDERED: RX-TRIMETH/SULFA. 160-800 MG (BACTRIM DS) TAB PPK#2 PO STA (00:07)
[2021-05-09] MEDS ORDERED: NAPR500T8 PO (00:08)
[2021-05-09] MEDS ORDERED: TETANUS,DIPTH,PERTUSS P/F (BOOSTRIX) 0.5 ML VIAL IM ONE (00:15)
[2021-05-09 00:25] VITALS: BP 161/100
== END 2021-05-09 00:25 | disposition home or self-care (01) ==
LOC: EDUNIT# 22:38 → ER 22:40
DX: L03.317 Cellulitis of buttock (principal); E11.9 Type 2 diabetes mellitus without complications; I10 Essential (primary) hypertension; Z23 Encounter for immunization; Z20.822 Contact with and (suspected) exposure to COVID-19
CPT/HCPCS: 87636; 90715

== ENCOUNTER 2021-06-29 03:54 | Emergency (ER) | payer SELFPAY ==
[~2021-06-29 03:54] MED LIST changes: +MUPI22OI2 TP; +NAPR500T8 PO
[2021-06-29 04:19] LABS: BILIRUBIN,URINE NEGATIVE (NEGATIVE); CLARITY,URINE SL CLOUDY; COLOR,URINE ORANGE; GLUCOSE, URINE (UA) NEGATIVE (NEGATIVE); KETONES,URINE NEGATIVE (NEGATIVE); LEUKOCYTE ESTERASE ,URINE 1+ (NEGATIVE); NITRITE,URINE POSITIVE (NEGATIVE); PROTEIN,URINE NEGATIVE (NEGATIVE)
[2021-06-29] MEDS ORDERED: NS IV 1000 ML 1,000 ML IV SCH (04:30)
[2021-06-29] MEDS ORDERED: LIDOCAINE 2% VISCOUS 15 ML UDC PO ONE (04:30)
[2021-06-29] MEDS ORDERED: ANTACID SUSP 30 ML UDC (MYLANTA) PO ONE (04:30)
[2021-06-29] MEDS ORDERED: FAMOTIDINE 20MG/2ML IV (PEPCID) IV STA (04:30)
[2021-06-29 04:31] LABS: BACTERIA,URINE LARGE /HPF; SQUAMOUS EPITHELIAL CELL,UR 0-2 /HPF
--- NOTE | 2021-06-29 04:36 | ED Abdominal Pain ---
General Chief Complaint: Abdominal/GI Problems Stated Complaint: ABD PAIN Source of Information: Patient Exam Limitations: No Limitations (ILIANA FIGUEROA) History of Present Illness Date Seen by Provider: Jun 29, 2021 Time Seen by Provider: 04:07 Initial Comments Patient to the ER by private conveyance from home with chief complaint of of abdominal pain since yesterday doubling her over. She works nights and ate some Oreos about 2 hours prior to arrival which made no difference in her pain. Her pain has been dull for the past day but then doubled her over just before coming in. She says is let up a little bit. She has not taken anything for the pain. She is not having any nausea fever chills cough shortness of air chest pain diarrhea. She has not had a bowel movement in about a week. She says is not unusual for her to go 1 to 2 weeks between bowel appointments. She has had a colonoscopy 25 years ago when she had cervical cancer and hysterectomy. She had umbilicus hernia repair when she was a baby. She has not had any other abdominal surgeries. No work-up on her gallbladder. No EGDs or history of GERD or indigestion. She does not take aspirin because it hurts her stomach. Codeine makes her itch. No history of pancreatitis or drinking of alcohol. (ILIANA FIGUEROA) Allergies and Home Medications Allergies Coded Allergies: aspirin (Unverified Allergy, Mild, UPSET STOMACH, 01/24/09) codeine (Unverified Allergy, Mild, HIVES, 01/24/09) mushroom (Unverified Allergy, Unknown, 01/10/21) Pt states "deathly allergic" to mushrooms. Patient Home Medication List Home Medication List Reviewed: Yes (ILIANA FIGUEROA) Clindamycin HCl (Clindamycin HCl) 300 Mg Capsule, 300 MG PO TID Prescribed by: EDDIE CHAND on 01/11/21 1259 Mupirocin (Mupirocin) 22 Gm Oint...g., 22 GM TP BID Prescribed by: COTY TONEY on 05/09/21 0006 Naproxen (Naproxen) 500 Mg Tablet.dr, 500 MG PO BID Prescribed by: COTY TONEY on 05/09/21 000 Nicotine (Nicotine Patch) 1 Each Patch.td24, 21 MG TD DAILY Prescribed by: EDDIE CHAND on 01/11/21 1259 Sulfamethoxazole/Trimethoprim (Bactrim Ds Tablet) 1 Each Tablet, 1 EACH PO BID Prescribed by: EDDIE CHAND on 01/11/21 1259 Sulfamethoxazole/Trimethoprim (Bactrim Ds Tablet) 1 Each Tablet, 1 EACH PO BID Prescribed by: COTY TONEY on 05/09/21 0006 Review of Systems Review of Systems Constitutional: No chills, No fever, No malaise EENTM: No Blurred Vision, No Double Vision Respiratory: Denies Cough, Denies Shortness of Air Cardiovascular: Denies Chest Pain, Denies Lightheadedness Gastrointestinal: See HPI, Abdominal Pain, Constipated; Denies Diarrhea, Denies Nausea Genitourinary: Denies Burning, Denies Discharge Musculoskeletal: No back pain, No joint pain Skin: No pruritus, No rash (ILIANA FIGUEROA) All Other Systems Reviewed Negative Unless Noted: Yes (ILIANA FIGUEROA) Past Amtjley-Cqyudd-Gceldr Hx Patient Social History Tobacco Use?: Yes Tobacco type used: Cigarettes Smoking Status: Current Everyday Smoker (Pack per day) Use of E-Cig and/or Vaping dev: No Substance use?: No Alcohol Use?: No (ILIANA FIGUEROA) Immunizations Up To Date PED Vaccines UTD: No (ILIANA FIGUEROA) Seasonal Allergies Seasonal Allergies: No (ILIANA FIGUEROA) Past Medical History Surgeries: Yes (SCALP LACERATION REPAIR) Abdominal, Hysterectomy Respiratory: No Cardiac: Yes Hypertension Neurological: No 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: Hysterectomy Genitourinary: No Gastrointestinal: Yes (ABDOMINAL HERNIA REPAIR A CHILD) Abdominal Hernia Musculoskeletal: No Endocrine: Yes ( REPORTS NONCOMPLIANT 01/09/2021) Diabetes, Non-Insulin dep HEENT: No Cancer: Yes Cervical Did You Recieve Any Treatments: Yes What Type of Treatment Did You: Chemotherapy Psychosocial: No Integumentary: Yes Eczema, Psoriasis Blood Disorders: No (ILIANA FIGUEROA) Family Medical History Heart Disease, Diabetes, Hypertension Mother - HTN, DM Father - HTN Sister - HTN Brother - HTN (ILIANA FIGUEROA) Physical Exam Vital Signs Vital Signs - First Documented 06/29/21 04:07 Temp 35.8 Pulse 83 Resp 22 B/P (MAP) 139/79 (99) Pulse Ox 99 O2 Delivery Room Air (PICAYUNE,HAYLEY D MD) Vital Signs Capillary Refill : (ILIANA FIGUEROA) Height/Weight/BMI Height: 5'8.00" Weight: 192lbs. 0.0oz. [id number]; 29.74 BMI Method:Actual General Appearance: WD/WN, mild distress HEENT: PERRL/EOMI, pharynx normal Neck: full range of motion, normal inspection Respiratory: lungs clear, normal breath sounds, no respiratory distress, no accessory muscle use Cardiovascular: normal peripheral pulses, regular rate, rhythm Peripheral Pulses: 2+ Radial Pulses (R), 2+ Radial Pulses (L) Gastrointestinal: normal bowel sounds, soft, guarding; No rebound; tenderness (Epigastric and left upper quadrant and mild tenderness over the right upper quadrant without Tarango sign, McBurney's point tenderness or Rovsing or psoas sign) Extremities: normal inspection, no pedal edema, normal capillary refill Neurologic/Psychiatric: no motor/sensory deficits, alert, normal mood/affect, oriented x 3 Skin: normal color, warm/dry (ILIANA FIGUEROA) Progress/Results/Core Measures Results/Orders Lab Results Laboratory Tests Test 06/29/21 04:14 06/29/21 04:52 Range/Units Urine Color ORANGE Urine Clarity SL CLOUDY Urine pH 6.0 5-9 Urine Specific [place] 1.015 L 1.016-1.022 Urine Protein NEGATIVE NEGATIVE Urine Glucose (UA) NEGATIVE NEGATIVE Urine Ketones NEGATIVE NEGATIVE Urine Nitrite POSITIVE H NEGATIVE Urine Bilirubin NEGATIVE NEGATIVE Urine Urobilinogen >=8.0 < = 1.0 MG/DL Urine Leukocyte Esterase 1+ H NEGATIVE Urine RBC (Auto) NEGATIVE NEGATIVE Urine RBC NONE /HPF Urine WBC 5-10 H /HPF Urine Squamous Epithelial Cells 0-2 /HPF Urine Crystals NONE /LPF Urine Bacteria LARGE H /HPF Urine Casts NONE /LPF Urine Mucus SMALL H /LPF Urine Culture Indicated YES White Blood Count 10.6 4.3-11.0 10^3/uL Red Blood Count 4.83 3.80-5.11 10^6/uL Hemoglobin 14.8 11.5-16.0 g/dL Hematocrit 42 35-52 % Mean Corpuscular Volume 88 80-99 fL Mean Corpuscular Hemoglobin 31 25-34 pg Mean Corpuscular Hemoglobin Concent 35 32-36 g/dL Red Cell Distribution Width 12.2 10.0-14.5 % Platelet Count 259 130-400 10^3/uL Mean Platelet Volume 10.9 9.0-12.2 fL Immature Granulocyte % (Auto) 1 % Neutrophils (%) (Auto) 79 H 42-75 % Lymphocytes (%) (Auto) 14 12-44 % Monocytes (%) (Auto) 5 0-12 % Eosinophils (%) (Auto) 1 0-10 % Basophils (%) (Auto) 1 0-10 % Neutrophils # (Auto) 8.4 H 1.8-7.8 10^3/uL Lymphocytes # (Auto) 1.5 1.0-4.0 10^3/uL Monocytes # (Auto) 0.5 0.0-1.0 10^3/uL Eosinophils # (Auto) 0.1 0.0-0.3 10^3/uL Basophils # (Auto) 0.1 0.0-0.1 10^3/uL Immature Granulocyte # (Auto) 0.1 0.0-0.1 10^3/uL Sodium Level 137 135-145 MMOL/L Potassium Level 3.8 3.6-5.0 MMOL/L Chloride Level 100 98-107 MMOL/L Carbon Dioxide Level 25 21-32 MMOL/L Anion Gap 12 5-14 MMOL/L Blood Urea Nitrogen 21 H 7-18 MG/DL Creatinine 0.98 0.60-1.30 MG/DL Estimat Glomerular Filtration Rate 58 BUN/Creatinine Ratio 21 Glucose Level 273 H 70-105 MG/DL Calcium Level 9.6 8.5-10.1 MG/DL Corrected Calcium 9.7 8.5-10.1 MG/DL Total Bilirubin 1.8 H 0.1-1.0 MG/DL Aspartate Amino Transf (AST/SGOT) 384 H 5-34 U/L Alanine Aminotransferase (ALT/SGPT) 275 H 0-55 U/L Alkaline Phosphatase 95 40-136 U/L C-Reactive Protein High Sensitivity 0.53 H 0.00-0.50 MG/DL Total Protein 7.3 6.4-8.2 GM/DL Albumin 3.9 3.2-4.5 GM/DL Lipase 18 8-78 U/L (HAYLEY THAKKAR MD) My Orders Orders - HAYLEY THAKKAR MD Diatrizoate Meglum/Sodium 37% (Gastrogra (06/29/21 07:45) (HAYLEY THAKKAR MD) Medications Given in ED Current Medications Medications Dose Ordered Sig/Rhonda Route Start Time Stop Time Status Last Admin Dose Admin Al Hydrox/Mg Hydrox/Simethicone 30 ml ONCE ONCE PO 06/29/21 04:30 06/29/21 04:31 DC 06/29/21 04:51 30 ML Ceftriaxone Sodium 1000 mg/ Sterile Water 10 ml @ 200 mls/hr ONCE ONCE IV 06/29/21 04:45 06/29/21 04:47 DC 06/29/21 04:50 200 MLS/HR Diatrizoate Meglum/ Diatrizoate Sod 120 ml ONCE ONCE PO 06/29/21 07:45 06/29/21 07:46 DC 06/29/21 07:34 30 ML Lidocaine HCl 15 ml ONCE ONCE PO 06/29/21 04:30 06/29/21 04:31 DC 06/29/21 04:51 15 ML (HAYLEY THAKKAR MD) Vital Signs/I&O 06/29/21 04:07 Temp 35.8 Pulse 83 Resp 22 B/P (MAP) 139/79 (99) Pulse Ox 99 O2 Delivery Room Air (HAYLEY THAKKAR MD) Progress Progress Note : Time: 04:35 Progress Note Gastritis, PUD, pancreatitis, less likely bowel obstruction given her week of no movement. Plan to give her some IV fluids, GI cocktail, labs. If the blood works okay may consider a CT of the abdomen and pelvis with oral contrast. We may also consider working up the gallbladder. (ILIANA FIGUEROA) Progress Note : Progress Note 0620: Assumed care of the patient from Dr. Figueroa pending CT abdomen pelvis with oral contrast. Monitor patient. 0750: CT abdomen pelvis does not show any acute findings. She does have urinary tract infection. White count is normal and CRP is low. This likely can be treated outpatient. 0806: Rocephin 1 g IV x1 now as well as Toradol 30 mg IV for mild pain. I did discuss the findings of the CT and labs with her. We will treat the urinary tract infection on outpatient basis and I have discussed follow-up with Dr. Khalil with her. She is in agreement. Discharged home with return precautions. Patient and family ve rbalized understanding of instructions and agreement with plan. (HAYLEY THAKKAR MD) Diagnostic Imaging Diagonstic Imaging: CT Plain Films/CT/US/NM/MRI: abdomen, pelvis Comments [facility] [employer] [facility] [place], [place] NAME: SALVADOR LUDWIG [facility] REC#: [id number] PT STATUS: REG ER : 1965 PHYSICIAN: ILIANA FIGUEROA MD ADMIT DATE: 06/29/21/ER Draft Date of Exam:06/29/21 CT ABDOMEN/PELVIS WO EXAMINATION: CT abdomen and pelvis without contrast. TECHNIQUE: Multiple contiguous axial images were obtained through the abdomen and pelvis without the use of intravenous contrast. All CT scans use one or more of the following dose optimizing techniques: automated exposure control, MA and/or KvP adjustment based on patient size and exam type or iterative reconstruction. HISTORY: Epigastric pain COMPARISON: None available. FINDINGS: Limited views of the lower thorax are unremarkable. The liver is normal without focal lesion. There is no biliary ductal dilation. Gallbladder is normal. Pancreas is normal. Spleen is normal. Adrenal glands are normal. The kidneys are normal. There is no hydronephrosis. Urinary bladder is normal. There has been a hysterectomy and oophorectomy with surgical clips in the retroperitoneum Visualized bowel is normal in caliber without obstruction or inflammation. No free fluid or air. No abdominal or pelvic lymphadenopathy. Aorta is normal in caliber without aneurysm. There are no suspicious osseus lesions. IMPRESSION: 1. No acute abnormality in the abdomen or pelvis. Dictated on workstation # [id number] Dict: 06/29/21 0727 Trans: 06/29/21 0738 [facility] [place] [id number] Interpreted by: JAVIER SEGOVIA MD Electronically signed by: (HAYLEY THAKKAR MD) Departure Impression Primary Impression: Right sided abdominal pain Additional Impressions: Urinary tract infection Qualified Codes: N30.00 - Acute cystitis without hematuria Elevated liver enzymes Disposition: HOME, SELF-CARE Condition: Improved Departure-Patient Inst. Decision time for Depature: 08:08 (HAYLEY THAKKAR MD) Referrals: SYLVIA HARGROVE MD (PCP/Family) Primary Care Physician Patient Instructions: Severe Abdominal Pain, Adult (DC), Urinary Tract Infection, Adult ED Add. Discharge Instructions: All discharge instructions reviewed with patient and/or family. Voiced understanding. Drink plenty of fluids. You may take Tylenol/acetaminophen 650 mg every 8 hours as needed for fever or pain. You may take ibuprofen 600 mg every 8 hours as needed for fever or pain. Call Dr. Khalil's office for appointment this week. Follow-up with your doctor this week for recheck and further evaluation of your pain and for the elevated liver enzymes. Return for worse pain, fever, vomiting, weakness, breathing problems or other concerns as needed. Scripts Cephalexin (Cephalexin) 500 Mg Capsule 500 MG PO BID for 5 Days, #10 CAP 0 Refills Prov: HAYLEY THAKKAR MD 06/29/21 Copy Copies To 1: TIMOTHY KHALIL MD Copies To 2: ILDEFONSO BECKFORD MD, TITUS J Jun 29, 2021 04:36 HAYLEY THAKKAR MD Jun 29, 2021 07:59
[2021-06-29] MEDS ORDERED: cefTRIAXone 1,000 MG in WATER (STERILE) FOR INJECTION 10 ML IV ONE (04:45)
[2021-06-29 05:16] LABS: ALBUMIN 3.9 GM/DL (3.2-4.5); POTASSIUM 3.8 MMOL/L (3.6-5.0)
[2021-06-29 05:18] LABS: CALCIUM 9.6 MG/DL (8.5-10.1)
[2021-06-29 05:19] LABS: TOTAL PROTEIN 7.3 GM/DL (6.4-8.2)
[2021-06-29 05:21] LABS: BILIRUBIN,TOTAL 1.8 MG/DL (0.1-1.0)
[2021-06-29 05:23] LABS: CREATININE SERUM 0.98 MG/DL (0.60-1.30)
[2021-06-29 05:36] LABS: BASOPHILS # (AUTO) 0.1 10^3/uL (0.0-0.1); BASOPHILS % (AUTO) 1 % (0-10); EOSINOPHILS # (AUTO) 0.1 10^3/uL (0.0-0.3); EOSINOPHILS % (AUTO) 1 % (0-10); HEMATOCRIT 42 % (35-52); HEMOGLOBIN 14.8 g/dL (11.5-16.0); LYMPHOCYTES # (AUTO) 1.5 10^3/uL (1.0-4.0); LYMPHOCYTES % (AUTO) 14 % (12-44); MEAN CORPUSCULAR HEMOGLOBIN 31 pg (25-34); MEAN CORPUSCULAR HGB CONC 35 g/dL (32-36); MEAN CORPUSCULAR VOLUME 88 fL (80-99); MEAN PLATELET VOLUME 10.9 fL (9.0-12.2); MONOCYTES # (AUTO) 0.5 10^3/uL (0.0-1.0); MONOCYTES % (AUTO) 5 % (0-12); NEUTROPHILS # (AUTO) 8.4 10^3/uL (1.8-7.8); NEUTROPHILS % (AUTO) 79 % (42-75); PLATELET COUNT 259 10^3/uL (130-400); WHITE BLOOD COUNT 10.6 10^3/uL (4.3-11.0)
--- NOTE | 2021-06-29 07:39 | Diagnostic Imaging Report ---
EXAMINATION: CT abdomen and pelvis without contrast. TECHNIQUE: Multiple contiguous axial images were obtained through the abdomen and pelvis without the use of intravenous contrast. All CT scans use one or more of the following dose optimizing techniques: automated exposure control, MA and/or KvP adjustment based on patient size and exam type or iterative reconstruction. HISTORY: Epigastric pain COMPARISON: None available. FINDINGS: Limited views of the lower thorax are unremarkable. The liver is normal without focal lesion. There is no biliary ductal dilation. Gallbladder is normal. Pancreas is normal. Spleen is normal. Adrenal glands are normal. The kidneys are normal. There is no hydronephrosis. Urinary bladder is normal. There has been a hysterectomy and oophorectomy with surgical clips in the retroperitoneum Visualized bowel is normal in caliber without obstruction or inflammation. No free fluid or air. No abdominal or pelvic lymphadenopathy. Aorta is normal in caliber without aneurysm. There are no suspicious osseus lesions. IMPRESSION: 1. No acute abnormality in the abdomen or pelvis. Dictated by: Dictated on workstation # [id number]
[2021-06-29] MEDS ORDERED: DIATRIZOATE MEGLUM/SODIUM 37% 120 ML (GASTROGRAFIN) PO ONE (07:45)
[2021-06-29] MEDS ORDERED: KETOROLAC 30 MG/ML VIAL IVP STA (08:05)
[2021-06-29] MEDS ORDERED: cefTRIAXone 1,000 MG in WATER (STERILE) FOR INJECTION 10 ML IV STA (08:05)
[2021-06-29] MEDS ORDERED: CEPH500C PO (08:11)
[2021-06-29 09:07] VITALS: BP 142/86
== END 2021-06-29 09:07 | disposition home or self-care (01) ==
LOC: EDUNIT# 03:54 → ER 03:56
DX: N39.0 Urinary tract infection, site not specified (principal); R10.13 Epigastric pain; R74.8 Abnormal levels of other serum enzymes; I10 Essential (primary) hypertension; E11.9 Type 2 diabetes mellitus without complications; F17.210 Nicotine dependence, cigarettes, uncomplicated; Z90.710 Acquired absence of both cervix and uterus
CPT/HCPCS: 36415; 74176; 80053; 81000; 83690; 85025; 86141; 87077; 87088; 87186

== ENCOUNTER 2021-11-26 17:23 | Emergency (ER) | payer SELFPAY ==
[~2021-11-26] VITALS: Ht 172 cm; Wt 81.0 kg
[~2021-11-26 17:23] MED LIST changes: +CEPH500C PO; +CLIN-144 PO; -CLIN300C12 PO
[2021-11-26] MEDS ORDERED: ONDANSETRON 4 MG/2 ML (SDV) Z0FRAN IVP ONE (17:45)
[2021-11-26] MEDS ORDERED: NS IV 1000 ML 1,000 ML IV STA (17:45)
--- NOTE | 2021-11-26 17:54 | ED Abdominal Pain ---
General Chief Complaint: Abdominal/GI Problems Stated Complaint: ABD PAIN - SOA - CHILLS Source of Information: Patient Exam Limitations: No Limitations (KINGSLEY FERRARI) History of Present Illness Date Seen by Provider: Nov 26, 2021 Time Seen by Provider: 17:52 Initial Comments Patient is a 55-year-old female presents ED with abdominal pain. Acute onset 2 hours ago. Pain is described as sharp located upper abdomen with radiation to right lower quadrant. Reports nausea without vomiting or diarrhea. Denies history of similar type pain. History of hysterectomy in the past. No dysuria, frequent urination, hematuria, diarrhea, constipation or vomiting. Denies any chest pain, cough or shortness of breath. Patient in mild to moderate distress on arrival. Denies taking thing for pain at home (KINGSLEY FERRARI) Allergies and Home Medications Allergies Coded Allergies: aspirin (Unverified Allergy, Mild, UPSET STOMACH, 01/24/09) codeine (Unverified Allergy, Mild, HIVES, 01/24/09) mushroom (Unverified Allergy, Unknown, 01/10/21) Pt states "deathly allergic" to mushrooms. Patient Home Medication List Home Medication List Reviewed: Yes (KINGSLEY FERRARI) Cephalexin (Cephalexin) 500 Mg Capsule, 500 MG PO BID Prescribed by: HAYLEY THAKKAR on 06/29/21 0811 Cephalexin (Cephalexin) 500 Mg Tablet, 500 MG PO BID Prescribed by: TALON SIMPSON on 11/26/212033 Clindamycin HCl (Clindamycin HCl) 300 Mg Capsule, 300 MG PO TID Prescribed by: EDDIE CHAND on 01/11/21 1259 Mupirocin (Mupirocin) 22 Gm Oint...g., 22 GM TP BID Prescribed by: COTY TONEY on 05/09/215 Naproxen (Naproxen) 500 Mg Tablet.dr, 500 MG PO BID Prescribed by: COTY TONEY on 05/09/21 000 Nicotine (Nicotine Patch) 1 Each Patch.td24, 21 MG TD DAILY Prescribed by: EDDIE CHAND on 01/11/21 1259 Sulfamethoxazole/Trimethoprim (Bactrim Ds Tablet) 1 Each Tablet, 1 EACH PO BID Prescribed by: EDDIE CHAND on 01/11/21 1259 Sulfamethoxazole/Trimethoprim (Bactrim Ds Tablet) 1 Each Tablet, 1 EACH PO BID Prescribed by: COTY TONEY on 05/09/21 0006 Review of Systems Review of Systems Constitutional: No chills, No diaphoresis, No dizziness, No fever, No malaise, No weakness EENTM: No Eye Pain, No Ear Pain, No Mouth Pain, No Mouth Swelling Respiratory: Denies Cough, Denies Shortness of Air, Denies SOA With Exertion, Denies SOA at Rest Cardiovascular: Denies Chest Pain, Denies Edema Gastrointestinal: Abdominal Pain; Denies Diarrhea; Nausea; Denies Vomiting Genitourinary: Denies Discharge Musculoskeletal: No back pain, No joint pain, No muscle pain, No muscle stiffness, No muscle cramps Psychiatric/Neurological: Denies Anxiety, Denies Depressed (KINGSLEY FERRARI) All Other Systems Reviewed Negative Unless Noted: Yes (KINGSLEY FERRARI) Past Zprsftx-Xqfmmm-Aiqaaj Hx Immunizations Up To Date PED Vaccines UTD: No Second COVID19 Vaccination Joe: 12/27/20 (KINGSLEY FERRARI) Seasonal Allergies Seasonal Allergies: No (KINGSLEY FERRARI) Past Medical History Surgery/Hospitalization HX: DM CERVICAL CANCER Surgeries: Yes (SCALP LACERATION REPAIR) Abdominal, Hysterectomy Respiratory: No Cardiac: Yes Hypertension Neurological: No 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 Genitourinary: No Gastrointestinal: Yes (ABDOMINAL HERNIA REPAIR A CHILD) Abdominal Hernia Musculoskeletal: No Endocrine: Yes ( REPORTS NONCOMPLIANT 01/09/2021) Diabetes, Non-Insulin dep HEENT: No Cancer: Yes Cervical Did You Recieve Any Treatments: Yes What Type of Treatment Did You: Chemotherapy Psychosocial: No Integumentary: Yes Eczema, Psoriasis Blood Disorders: No (KINGSLEY FERRARI) Family Medical History Heart Disease, Diabetes, Hypertension Mother - HTN, DM Father - HTN Sister - HTN Brother - HTN (KINGSLEY FERRARI) Physical Exam Vital Signs Vital Signs - First Documented 11/26/21 17:40 Temp 37.3 Pulse 86 Resp 16 B/P (MAP) 166/93 (117) Pulse Ox 100 O2 Delivery Room Air (PHILLIP MAY MD) Vital Signs Capillary Refill : (KINGSLEY FERRARI) Height/Weight/BMI Height: 5'8.00" Weight: 192lbs. 0.0oz. 87.787431br; 29.74 BMI Method:Actual General Appearance: WD/WN, moderate distress HEENT: PERRL/EOMI, normal ENT inspection, TMs normal, pharynx normal Neck: non-tender, full range of motion, supple Respiratory: chest non-tender, lungs clear, normal breath sounds, no respiratory distress, no accessory muscle use Cardiovascular: regular rate, rhythm, no edema, no gallop, no JVD Gastrointestinal: normal bowel sounds, soft, no organomegaly, no pulsatile mass Extremities: normal range of motion, non-tender, normal inspection, no pedal edema Back: normal inspection, no CVA tenderness, no vertebral tenderness (KINGSLEY FERRARI) Progress/Results/Core Measures Results/Orders Lab Results Laboratory Tests Test 11/26/21 18:02 11/26/21 20:04 Range/Units White Blood Count 10.9 4.3-11.0 10^3/uL Red Blood Count 5.57 H 3.80-5.11 10^6/uL Hemoglobin 16.9 H 11.5-16.0 g/dL Hematocrit 48 35-52 % Mean Corpuscular Volume 86 80-99 fL Mean Corpuscular Hemoglobin 30 25-34 pg Mean Corpuscular Hemoglobin Concent 35 32-36 g/dL Red Cell Distribution Width 11.8 10.0-14.5 % Platelet Count 325 130-400 10^3/uL Mean Platelet Volume 9.7 9.0-12.2 fL Immature Granulocyte % (Auto) 1 % Neutrophils (%) (Auto) 82 H 42-75 % Lymphocytes (%) (Auto) 12 12-44 % Monocytes (%) (Auto) 5 0-12 % Eosinophils (%) (Auto) 1 0-10 % Basophils (%) (Auto) 1 0-10 % Neutrophils # (Auto) 8.9 H 1.8-7.8 10^3/uL Lymphocytes # (Auto) 1.3 1.0-4.0 10^3/uL Monocytes # (Auto) 0.5 0.0-1.0 10^3/uL Eosinophils # (Auto) 0.1 0.0-0.3 10^3/uL Basophils # (Auto) 0.1 0.0-0.1 10^3/uL Immature Granulocyte # (Auto) 0.1 0.0-0.1 10^3/uL Sodium Level 136 135-145 MMOL/L Potassium Level 3.7 3.6-5.0 MMOL/L Chloride Level 100 98-107 MMOL/L Carbon Dioxide Level 22 21-32 MMOL/L Anion Gap 14 5-14 MMOL/L Blood Urea Nitrogen 16 7-18 MG/DL Creatinine 0.99 0.60-1.30 MG/DL Estimat Glomerular Filtration Rate 67 BUN/Creatinine Ratio 16 Glucose Level 157 H 70-105 MG/DL Calcium Level 10.3 H 8.5-10.1 MG/DL Corrected Calcium 9.9 8.5-10.1 MG/DL Total Bilirubin 2.4 H 0.1-1.0 MG/DL Aspartate Amino Transf (AST/SGOT) 246 H 5-34 U/L Alanine Aminotransferase (ALT/SGPT) 151 H 0-55 U/L Alkaline Phosphatase 105 40-136 U/L Troponin I < 0.028 <0.028 NG/ML Total Protein 8.3 H 6.4-8.2 GM/DL Albumin 4.5 3.2-4.5 GM/DL Lipase 13 8-78 U/L Serum Alcohol < 10 <10 MG/DL Urine Color YELLOW Urine Clarity SL CLOUDY Urine pH 7.0 5-9 Urine Specific [place] <=1.005 1.016-1.022 Urine Protein NEGATIVE NEGATIVE Urine Glucose (UA) NEGATIVE NEGATIVE Urine Ketones NEGATIVE NEGATIVE Urine Nitrite POSITIVE H NEGATIVE Urine Bilirubin NEGATIVE NEGATIVE Urine Urobilinogen 2.0 < = 1.0 MG/DL Urine Leukocyte Esterase NEGATIVE NEGATIVE Urine RBC (Auto) NEGATIVE NEGATIVE Urine RBC NONE /HPF Urine WBC 2-5 /HPF Urine Squamous Epithelial Cells 0-2 /HPF Urine Renal Epithelial Cells NONE /HPF Urine Crystals NONE /LPF Urine Bacteria LARGE H /HPF Urine Casts NONE /LPF Urine Mucus NEGATIVE /LPF Urine Culture Indicated YES Urine Opiates Screen POSITIVE H NEGATIVE Urine Oxycodone Screen NEGATIVE NEGATIVE Urine Methadone Screen NEGATIVE NEGATIVE Urine Propoxyphene Screen NEGATIVE NEGATIVE Urine Barbiturates Screen NEGATIVE NEGATIVE Ur Tricyclic Antidepressants Screen NEGATIVE NEGATIVE Urine Phencyclidine Screen NEGATIVE NEGATIVE Urine Amphetamines Screen POSITIVE H NEGATIVE Urine Methamphetamines Screen POSITIVE H NEGATIVE Urine Benzodiazepines Screen NEGATIVE NEGATIVE Urine Cocaine Screen NEGATIVE NEGATIVE Urine Cannabinoids Screen NEGATIVE NEGATIVE (PHILLIP MAY MD) Vital Signs/I&O 11/26/21 11/26/21 17:40 20:47 Temp 37.3 37.3 Pulse 86 100 Resp 16 16 B/P (MAP) 166/93 (117) 142/113 Pulse Ox 100 96 O2 Delivery Room Air Room Air 11/27/21 00:00 Intake Total 600 ml Balance 600 ml (PHILLIP MAY MD) Comment Sinus rhythm, 83 bpm, QRS duration 92 MS, QTc 492 MS (KINGSLEY FERRARI) Departure Communication (Admissions) Patient in moderate distress on arrival. She reports pain to her upper abdomen and right lower quadrant. Acute onset 2 hours ago. Urinalysis concerning for UTI. She has no current urinary symptoms. She has normal white blood count. Elevated liver enzymes and bilirubin. Similar type results in the past but slightly more elevated today. She states her primary care physician is aware and has performed further work-up. Denies current alcohol use. Due to the location of pain, distress and right lower quadrant CT scan of the abdomen pelvis was ordered. Initially was the difficulty IV stick. Was able to use guided ultrasound. Normal lipase. Normal white blood count. CT abdomen pelvis without evidence of appendicitis. Mild distention of the gallbladder without surrounding fluid, edema. She was given morphine with improvement of pain. Did have notable large amount of stool throughout the colon. She states she is not having frequent bowel movements which may be associated to the pain. Patient pain appears to be improving. She denies history of gastritis, GERD, esophagitis or peptic ulcer disease which could be associated to some of the pain. Discussed with PPIs. Discussed laxatives and high-fiber diet. Recommend following up with PCP 2 to 3 days for reevaluation. If worsening continued pain may consider EGD, colonoscopy, further evaluation of gallbladder. Cardiac work- up unremarkable. No peritoneal signs. Pain control. Outpatient follow-up (KINGSLEY FERRARI) Impression Primary Impression: Abdominal pain Additional Impression: Urinary tract infection Disposition: 01 HOME, SELF-CARE Condition: Stable Departure-Patient Inst. Decision time for Depature: 20:33 (KINGSLEY FERRARI) Referrals: SYLVIA HARGROVE MD (PCP/Family) Primary Care Physician Patient Instructions: Abdominal Pain, Adult ED Scripts Cephalexin (Cephalexin) 500 Mg Tablet 500 MG PO BID for 7 Days, #14 TAB Prov: KINGSLEY FERRARI 11/26/21 ATTENDING PHYSICIAN NOTE: I was physically present as attending physician in the emergency department during the care of this patient, but I was not directly involved in the decision making or delivery of care for this patient. (PHILLIP MAY MD) KINGSLEY FERRARI Nov 26, 2021 17:54 PHILLIP MAY MD Nov 27, 2021 06:52
[2021-11-26] MEDS ORDERED: HOLD METFORMIN - RECEIVED CONTRAST 20 ML VIAL IV SCH (18:00)
[2021-11-26] MEDS ORDERED: IOHEXOL 350 MG/ML 100 ML (OMNIPAQUE 350) VIAL IV ONE (18:00)
[2021-11-26] MEDS ORDERED: morphine INJ 10 MG/ML 1ML (SYR OR VIAL) IVP ONE (18:00)
[2021-11-26] MEDS ORDERED: NS 100 ML (IVPB) BAG IV ONE (18:00)
[2021-11-26 18:32] LABS: BASOPHILS # (AUTO) 0.1 10^3/uL (0.0-0.1); BASOPHILS % (AUTO) 1 % (0-10); EOSINOPHILS # (AUTO) 0.1 10^3/uL (0.0-0.3); EOSINOPHILS % (AUTO) 1 % (0-10); HEMATOCRIT 48 % (35-52); HEMOGLOBIN 16.9 g/dL (11.5-16.0); LYMPHOCYTES # (AUTO) 1.3 10^3/uL (1.0-4.0); LYMPHOCYTES % (AUTO) 12 % (12-44); MEAN CORPUSCULAR HEMOGLOBIN 30 pg (25-34); MEAN CORPUSCULAR HGB CONC 35 g/dL (32-36); MEAN CORPUSCULAR VOLUME 86 fL (80-99); MEAN PLATELET VOLUME 9.7 fL (9.0-12.2); MONOCYTES # (AUTO) 0.5 10^3/uL (0.0-1.0); MONOCYTES % (AUTO) 5 % (0-12); NEUTROPHILS # (AUTO) 8.9 10^3/uL (1.8-7.8); NEUTROPHILS % (AUTO) 82 % (42-75); PLATELET COUNT 325 10^3/uL (130-400); WHITE BLOOD COUNT 10.9 10^3/uL (4.3-11.0)
[2021-11-26 18:58] LABS: ALANINE AMINOTRANSFERASE 151 U/L (0-55); ALBUMIN 4.5 GM/DL (3.2-4.5); ALKALINE PHOSPHATASE 105 U/L (40-136); BILIRUBIN,TOTAL 2.4 MG/DL (0.1-1.0); BUN/CREATININE RATIO 16; CALCIUM 10.3 MG/DL (8.5-10.1); CARBON DIOXIDE 22 MMOL/L (21-32); CHLORIDE 100 MMOL/L (98-107); CREATININE SERUM 0.99 MG/DL (0.60-1.30); GFR ESTIMATED 67; GLUCOSE 157 MG/DL (70-105); LIPASE 13 U/L (8-78); POTASSIUM 3.7 MMOL/L (3.6-5.0); SODIUM 136 MMOL/L (135-145); TOTAL PROTEIN 8.3 GM/DL (6.4-8.2)
--- NOTE | 2021-11-26 19:28 | Diagnostic Imaging Report ---
PROCEDURE: CT abdomen and pelvis with contrast. TECHNIQUE: Multiple contiguous axial images were obtained through the abdomen and pelvis after administration of intravenous contrast. Auto Exposure Controls were utilized during the CT exam to meet ALARA standards for radiation dose reduction. All CT scans use one or more of the following dose optimizing techniques: automated exposure control, MA and/or KvP adjustment based on patient size and exam type or iterative reconstruction. INDICATION: Upper abdominal pain, right lower quadrant abdominal pain. COMPARISON: 06/29/2021. FINDINGS: There is dependent atelectasis in the lung bases. The heart is normal in size. There is no pericardial effusion. The liver demonstrates no focal lesions. The spleen appears normal. The pancreas is normal. A small splenule is noted. The gallbladder is mildly distended. No calcified stone is seen. The adrenal glands appear normal. The kidneys demonstrate no enhancing masses and no hydronephrosis. The appendix is not seen but no secondary findings of appendicitis are identified. There is diverticulosis of the colon without diverticulitis seen. There is moderate stool in the ascending, transverse and descending colon. No distended loops of small bowel are seen. No free fluid or free air is seen. Surgical clips are noted in the pelvis. The aorta is normal in caliber. No lymphadenopathy is seen. The urinary bladder is mildly distended but no filling defects are seen. No acute osseous abnormality is identified. There is marked degenerative change in the hips. IMPRESSION: 1. The appendix is not seen but no secondary findings of appendicitis are identified. 2. Mild distention of the gallbladder. No surrounding edema or calcified stone is seen. 3. Moderate stool in the colon. Colonic diverticulosis without diverticulitis. Dictated by: Dictated on workstation # [id number]
[2021-11-26 20:24] LABS: BILIRUBIN,URINE NEGATIVE (NEGATIVE); CLARITY,URINE SL CLOUDY; COLOR,URINE YELLOW; GLUCOSE, URINE (UA) NEGATIVE (NEGATIVE); KETONES,URINE NEGATIVE (NEGATIVE); LEUKOCYTE ESTERASE ,URINE NEGATIVE (NEGATIVE); NITRITE,URINE POSITIVE (NEGATIVE); PROTEIN,URINE NEGATIVE (NEGATIVE)
[2021-11-26 20:31] LABS: BACTERIA,URINE LARGE /HPF; SQUAMOUS EPITHELIAL CELL,UR 0-2 /HPF
[2021-11-26] MEDS ORDERED: CEPH500T PO (20:34)
[2021-11-26 20:37] LABS: AMPHETAMINE SCREEN, URINE POSITIVE (NEGATIVE); BARBITURATE SCREEN URINE NEGATIVE (NEGATIVE); BENZODIAZEPINES SCREEN URINE NEGATIVE (NEGATIVE); CANNABINOID SCREEN, URINE NEGATIVE (NEGATIVE); COCAINE SCREEN URINE NEGATIVE (NEGATIVE); METHADONE STAT NEGATIVE (NEGATIVE); METHAMPHETAMINE SCREEN URINE S POSITIVE (NEGATIVE); OPIATE SCREEN URINE POSITIVE (NEGATIVE); OXYCODONE STAT NEGATIVE (NEGATIVE); PROPOXYPHENE STAT NEGATIVE (NEGATIVE); TRICYCLIC ANTIDEPRESSANTS SCRE NEGATIVE (NEGATIVE)
[2021-11-26 20:47] VITALS: BP 142/113
== END 2021-11-26 20:47 | disposition home or self-care (01) ==
LOC: EDUNIT# 17:23 → ER 17:25
DX: N39.0 Urinary tract infection, site not specified (principal)
CPT/HCPCS: 74177; 80053; 80306; 81000; 83690; 84484; 85025; 87077; 87088; 93005; 99284; G0480; 36415; 80320; 87186

== ENCOUNTER 2023-03-16 07:42 | Inpatient (IN) | payer SELFPAY ==
[~2023-03-16] VITALS: Ht 170.2 cm; Wt 85.6 kg
[2023-03-16] MEDS ORDERED: FAMOTIDINE 20 MG (PEPCID) TABLET PO STA (07:51)
[2023-03-16] MEDS ORDERED: morphine INJ 10 MG/ML 1ML (SYR OR VIAL) IVP STA (07:51)
--- NOTE | 2023-03-16 07:58 | ED Abdominal Pain ---
General Chief Complaint: Abdominal/GI Problems Stated Complaint: ABD PAIN Nursing Triage Note: PT TO [facility] 6 PT CO OF SEVERE ABD PAIN, STARTED ABOUT MIDNIGHT. PT YELLING OUT. PT STATES HAS HX OF GERD RATES PAIN 07/13 Source of Information: Patient, Old Records, Other (friend) Exam Limitations: No Limitations History of Present Illness Date Seen by Provider: Mar 16, 2023 Time Seen by Provider: 07:48 Initial Comments 57-year-old female with past medical history of GERD, diabetes, and prior drug use coming in due to abdominal pain. Started around midnight, started as a burning, now sharp. Started in her epigastric region, now her entire abdomen. Last had a bowel movement a couple days ago which is normal for her. She states she is passing flatus. No significant nausea or vomiting. Also denies any fever, dysuria, diarrhea, hematuria, flank pain, chest pain, shortness of breath, rash, weakness, numbness, or any other concerns. She states she had a popsicle this morning which did not help. Allergies and Home Medications Allergies Coded Allergies: aspirin (Unverified Allergy, Mild, UPSET STOMACH, 01/24/09) codeine (Unverified Allergy, Mild, HIVES, 01/24/09) mushroom (Unverified Allergy, Unknown, 01/10/21) Pt states "deathly allergic" to mushrooms. Patient Home Medication List Home Medication List Reviewed: Yes Cephalexin (Cephalexin) 500 Mg Capsule, 500 MG PO BID Prescribed by: HAYLEY THAKKAR on 06/29/21 0811 Cephalexin (Cephalexin) 500 Mg Tablet, 500 MG PO BID Prescribed by: TALON SIMPSON on 11/26/212033 Clindamycin HCl (Clindamycin HCl) 300 Mg Capsule, 300 MG PO TID Prescribed by: EDDIE CHAND on 01/11/21 1259 Mupirocin (Mupirocin) 22 Gm Oint...g., 22 GM TP BID Prescribed by: COTY TONEY on 05/09/21 000 Naproxen (Naproxen) 500 Mg Tablet.dr, 500 MG PO BID Prescribed by: COTY TONEY on 05/09/217 Nicotine (Nicotine Patch) 1 Each Patch.td24, 21 MG TD DAILY Prescribed by: EDDIE CHAND on 01/11/21 1259 Sulfamethoxazole/Trimethoprim (Bactrim Ds Tablet) 1 Each Tablet, 1 EACH PO BID Prescribed by: EDDIE CHAND on 01/11/21 1259 Sulfamethoxazole/Trimethoprim (Bactrim Ds Tablet) 1 Each Tablet, 1 EACH PO BID Prescribed by: COTY TONEY on 05/09/21 0006 Review of Systems Review of Systems Constitutional: No fever EENTM: No Symptoms Reported Respiratory: No Symptoms Reported Cardiovascular: No Symptoms Reported Gastrointestinal: See HPI Genitourinary: No Symptoms Reported Musculoskeletal: no symptoms reported Skin: no symptoms reported Psychiatric/Neurological: No Symptoms Reported Endocrine: No Symptoms Reported Hematologic/Lymphatic: No Symptoms Reported Past Ozrawfo-Ausgll-Rbikgt Hx Immunizations Up To Date PED Vaccines UTD: No Second COVID19 Vaccination Joe: UNKNOWN Seasonal Allergies Seasonal Allergies: No Past Medical History Surgery/Hospitalization HX: DM CERVICAL CANCER Surgeries: Yes (SCALP LACERATION REPAIR) Abdominal, Hysterectomy Respiratory: No Cardiac: Yes Hypertension 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 Genitourinary: No Gastrointestinal: Yes (ABDOMINAL HERNIA REPAIR A CHILD) Abdominal Hernia Musculoskeletal: No Endocrine: Yes ( REPORTS NONCOMPLIANT 01/09/2021) Diabetes, Non-Insulin dep HEENT: No Cancer: Yes Cervical Did You Recieve Any Treatments: Yes What Type of Treatment Did You: Chemotherapy Psychosocial: No Integumentary: Yes Eczema, Psoriasis Blood Disorders: No Family Medical History Heart Disease, Diabetes, Hypertension Mother - HTN, DM Father - HTN Sister - HTN Brother - HTN Physical Exam Vital Signs Vital Signs - First Documented 03/16/23 07:49 Temp 35.2 Pulse 98 Resp 25 B/P (MAP) 179/99 (125) Pulse Ox 99 Capillary Refill : Less Than 3 Seconds Height/Weight/BMI Height: 5'8.00" Weight: 192lbs. 0.0oz. 87.807724ia; 28.00 BMI Method:Actual General Appearance: WD/WN, moderate distress HEENT: PERRL/EOMI, normal ENT inspection, pharynx normal Neck: non-tender, full range of motion, supple, normal inspection Respiratory: chest non-tender, lungs clear, normal breath sounds, no respiratory distress, no accessory muscle use Cardiovascular: regular rate, rhythm, no edema, no murmur Gastrointestinal: normal bowel sounds, soft; No distended, No guarding, No rebound; tenderness (General, worse in the epigastric region) Extremities: normal range of motion, non-tender, normal inspection, no pedal edema, no calf tenderness, normal capillary refill Back: no CVA tenderness Neurologic/Psychiatric: no motor/sensory deficits, alert Skin: normal color, warm/dry Focused Exam Lactate Level 03/16/23 08:05: Lactic Acid Level 2.05*H Lactic Acid Level Laboratory Tests Test 03/16/23 08:05 Lactic Acid Level 2.05 MMOL/L (0.50-2.00) *H Progress/Results/Core Measures Results/Orders Lab Results Laboratory Tests Test 03/16/23 08:05 Range/Units White Blood Count 12.0 H 4.3-11.0 10^3/uL Red Blood Count 5.36 H 3.80-5.11 10^6/uL Hemoglobin 16.3 H 11.5-16.0 g/dL Hematocrit 46 35-52 % Mean Corpuscular Volume 85 80-99 fL Mean Corpuscular Hemoglobin 30 25-34 pg Mean Corpuscular Hemoglobin Concent 36 32-36 g/dL Red Cell Distribution Width 12.5 10.0-14.5 % Platelet Count 359 130-400 10^3/uL Mean Platelet Volume 10.0 9.0-12.2 fL Immature Granulocyte % (Auto) 1 % Neutrophils (%) (Auto) 83 H 42-75 % Lymphocytes (%) (Auto) 11 L 12-44 % Monocytes (%) (Auto) 5 0-12 % Eosinophils (%) (Auto) 0 0-10 % Basophils (%) (Auto) 1 0-10 % Neutrophils # (Auto) 9.9 H 1.8-7.8 10^3/uL Lymphocytes # (Auto) 1.3 1.0-4.0 10^3/uL Monocytes # (Auto) 0.6 0.0-1.0 10^3/uL Eosinophils # (Auto) 0.0 0.0-0.3 10^3/uL Basophils # (Auto) 0.1 0.0-0.1 10^3/uL Immature Granulocyte # (Auto) 0.1 0.0-0.1 10^3/uL Prothrombin Time 12.6 12.2-14.7 SEC INR Comment 0.9 0.8-1.4 Activated Partial Thromboplast Time 27 24-35 SEC Sodium Level 138 135-145 MMOL/L Potassium Level 3.7 3.6-5.0 MMOL/L Chloride Level 100 98-107 MMOL/L Carbon Dioxide Level 23 21-32 MMOL/L Anion Gap 15 H 5-14 MMOL/L Blood Urea Nitrogen 18 7-18 MG/DL Creatinine 0.88 0.60-1.30 MG/DL Estimat Glomerular Filtration Rate 76 BUN/Creatinine Ratio 20 Glucose Level 225 H 70-105 MG/DL Lactic Acid Level 2.05 *H 0.50-2.00 MMOL/L Calcium Level 11.0 H 8.5-10.1 MG/DL Corrected Calcium 10.8 H 8.5-10.1 MG/DL Magnesium Level 1.6 1.6-2.4 MG/DL Total Bilirubin 2.8 H 0.1-1.0 MG/DL Aspartate Amino Transf (AST/SGOT) 259 H 5-34 U/L Alanine Aminotransferase (ALT/SGPT) 382 H 0-55 U/L Alkaline Phosphatase 224 H 40-136 U/L Total Protein 8.2 6.4-8.2 GM/DL Albumin 4.3 3.2-4.5 GM/DL Serum Alcohol < 10 <10 MG/DL My Orders Orders - KINGSLEY GR MD Ct Abdomen/Pelvis W (03/16/23 07:51) Ed Iv/Invasive Line Start (03/16/23 07:51) Alcohol (03/16/23 07:51) Cbc With Automated Diff (03/16/23 07:51) Comprehensive Metabolic Panel (03/16/23 07:51) Drug Screen Stat (Urine) (03/16/23 07:51) Lactic Acid Analyzer (03/16/23 07:51) Lipase (03/16/23 07:51) Magnesium (03/16/23 07:51) Protime With Inr (03/16/23 07:51) Partial Thromboplastin Time (03/16/23 07:51) Ua Culture If Indicated (03/16/23 07:51) Lidocaine 2% Viscous 15 Ml (Xylocaine Vi (03/16/23 08:00) Famotidine Tablet (Pepcid Tablet) (03/16/23 07:51) Antacid Suspension (Mylanta Suspension (03/16/23 08:00) Morphine Injection (Morphine Injection (03/16/23 07:51) Droperidol Inj (Ed Only) (Inapsine Inj ( (03/16/23 08:00) Iohexol Injection (Omnipaque 350 Mg/Ml 1 (03/16/23 08:30) Received Contrast (Hold Metformin- Contr (03/16/23 08:30) Ns (Ivpb) (Sodium Chloride 0.9% Ivpb Bag (03/16/23 08:30) Ns Iv 1000 Ml (Sodium Chloride 0.9%) (03/16/23 09:15) LDH (03/16/23 09:13) Medications Given in ED Current Medications Medications Dose Ordered Sig/Rhonda Route Start Time Stop Time Status Last Admin Dose Admin Al Hydrox/Mg Hydrox/Simethicone 30 ml ONCE ONCE PO 03/16/23 08:00 03/16/23 08:01 DC 03/16/23 08:04 30 ML Droperidol 2.5 mg ONCE ONCE IV 03/16/23 08:00 03/16/23 08:01 DC 03/16/23 08:04 2.5 MG Iohexol 100 ml ONCE ONCE IV 03/16/23 08:30 03/16/23 08:31 DC 03/16/23 09:03 80 ML Lidocaine HCl 15 ml ONCE ONCE PO 03/16/23 08:00 03/16/23 08:01 DC 03/16/23 08:04 15 ML Sodium Chloride 100 ml ONCE ONCE IV 03/16/23 08:30 03/16/23 08:31 DC 03/16/23 09:03 80 ML Vital Signs/I&O 03/16/23 07:49 Temp 35.2 Pulse 98 Resp 25 B/P (MAP) 179/99 (125) Pulse Ox 99 Blood Pressure Mean: 137 Progress Progress Note : Progress Note 57-year-old female with above history coming in due to epigastric abdominal pain. ABCs were intact and vitals were stable on presentation, patient in moderate to severe distress screaming out in pain on arrival. Physical exam with abdominal tenderness but no signs of peritonitis. An IV was placed personally by me using ultrasound guidance. She was given morphine for pain and droperidol for nausea. Labs significant for lactic acid of 2.05, mild leukocytosis, normal creatinine, elevated AST and ALT. CT abdomen pelvis ordered and interpreted by me showing peripancreatic stranding concerns for pancreatitis. I contacted Dr. Chand, who admit the patient to the intensive care unit for further evaluation and management. I then contacted Dr. Alba for consultation, he will recommend an ultrasound to be done as well. I then contacted the ICU physician for signout. Diagnostic Imaging Diagonstic Imaging: CT (abd/pelvis) Comments NAME: SALVADOR LUDWIG [facility] REC#: [id number] PT STATUS: REG ER : 1965 PHYSICIAN: KINGSLEY GR MD ADMIT DATE: 03/16/23/ER Draft Date of Exam:03/16/23 CT ABDOMEN/PELVIS W EXAMINATION: CT abdomen and pelvis with intravenous contrast. TECHNIQUE: Multiple contiguous axial images were obtained through the abdomen and pelvis after the uneventful administration of intravenous contrast. All CT scans use one or more of the following dose optimizing techniques: automated exposure control, MA and/or KvP adjustment based on patient size and exam type or iterative reconstruction. HISTORY: severe general abdominal pain COMPARISON: None available. FINDINGS: Lung bases: The lung bases are clear. Solid organs: The liver is normal without focal lesion. The gallbladder is normal. There is no biliary ductal dilation. There is peripancreatic fluid and inflammatory stranding without evidence of hypoenhancement or ductal dilatation. No peripancreatic loculated collection. Spleen is normal. Adrenal glands are normal. The kidneys are normal without hydronephrosis. Bowel: The stomach and small bowel are normal without obstruction. The colon is normal. There are no secondary signs of acute appendicitis. Peritoneum: Mild free fluid within the retroperitoneum surrounding the pancreatic head and body. No loculated fluid collection or free air. No suspicious lymphadenopathy. Vasculature: Calcification of the aorta without aneurysm. Musculoskeletal: Degenerative changes of the spine without suspicious osseous lesion or compression fracture. Pelvis: The uterus is surgically absent. No adnexal mass. The urinary bladder is normal. IMPRESSION: 1. Findings concerning for acute pancreatitis. Recommend correlation with clinical symptoms and laboratory values. No evidence of necrosis or peripancreatic fluid collection. Dictated on workstation # [id number] Dict: 03/16/23 0901 Trans: 03/16/23 0904 [facility] [id number] Interpreted by: RUBA COOPER DO Electronically signed by: Departure Impression Primary Impression: Acute pancreatitis Qualified Codes: K85.80 - Other acute pancreatitis without necrosis or infection Disposition: ADMITTED INPATIENT Condition: Stable Admissions Decision to Admit Reason: Admit from ER (General) Decision to Admit/Date: Mar 16, 2023 Time/Decision to Admit Time: 09:10 Departure-Patient Inst. Referrals: SYLVIA HARGROVE MD (PCP/Family) Primary Care Physician KINGSLEY GR MD Mar 16, 2023 07:58
[2023-03-16] MEDS ORDERED: DROPERIDOL 5 MG/2 ML (INAPSINE) ED ONLY! IV ONE (08:00)
[2023-03-16] MEDS ORDERED: LIDOCAINE 2% VISCOUS 15 ML UDC PO ONE (08:00)
[2023-03-16] MEDS ORDERED: ANTACID SUSP 30 ML UDC (MYLANTA) PO ONE (08:00)
[2023-03-16 08:18] LABS: BASOPHILS # (AUTO) 0.1 10^3/uL (0.0-0.1); BASOPHILS % (AUTO) 1 % (0-10); EOSINOPHILS % (AUTO) 0 % (0-10); HEMATOCRIT 46 % (35-52); HEMOGLOBIN 16.3 g/dL (11.5-16.0); LYMPHOCYTES # (AUTO) 1.3 10^3/uL (1.0-4.0); LYMPHOCYTES % (AUTO) 11 % (12-44); MEAN CORPUSCULAR HEMOGLOBIN 30 pg (25-34); MEAN CORPUSCULAR HGB CONC 36 g/dL (32-36); MEAN CORPUSCULAR VOLUME 85 fL (80-99); MONOCYTES # (AUTO) 0.6 10^3/uL (0.0-1.0); MONOCYTES % (AUTO) 5 % (0-12); NEUTROPHILS # (AUTO) 9.9 10^3/uL (1.8-7.8); NEUTROPHILS % (AUTO) 83 % (42-75); PLATELET COUNT 359 10^3/uL (130-400)
[2023-03-16 08:23] LABS: ALBUMIN 4.3 GM/DL (3.2-4.5)
[2023-03-16 08:24] LABS: CHLORIDE 100 MMOL/L (98-107); POTASSIUM 3.7 MMOL/L (3.6-5.0); SODIUM 138 MMOL/L (135-145)
[2023-03-16 08:26] LABS: GLUCOSE 225 MG/DL (70-105); TOTAL PROTEIN 8.2 GM/DL (6.4-8.2)
[2023-03-16 08:27] LABS: CARBON DIOXIDE 23 MMOL/L (21-32)
[2023-03-16 08:28] LABS: BILIRUBIN,TOTAL 2.8 MG/DL (0.1-1.0)
[2023-03-16 08:30] LABS: ALKALINE PHOSPHATASE 224 U/L (40-136); CREATININE SERUM 0.88 MG/DL (0.60-1.30); GFR ESTIMATED 76
[2023-03-16] MEDS ORDERED: HOLD METFORMIN - RECEIVED CONTRAST 20 ML VIAL IV SCH (08:30)
[2023-03-16] MEDS ORDERED: NS 100 ML (IVPB) BAG IV ONE (08:30)
[2023-03-16] MEDS ORDERED: IOHEXOL 350 MG/ML 100 ML (OMNIPAQUE 350) VIAL IV ONE (08:30)
[2023-03-16 08:31] LABS: BUN/CREATININE RATIO 20
[2023-03-16 08:33] LABS: ALANINE AMINOTRANSFERASE 382 U/L (0-55); MAGNESIUM 1.6 MG/DL (1.6-2.4)
[2023-03-16 08:43] LABS: INR 0.9 (0.8-1.4); PROTHROMBIN TIME PATIENT 12.6 SEC (12.2-14.7)
--- NOTE | 2023-03-16 09:04 | Diagnostic Imaging Report ---
EXAMINATION: CT abdomen and pelvis with intravenous contrast. TECHNIQUE: Multiple contiguous axial images were obtained through the abdomen and pelvis after the uneventful administration of intravenous contrast. All CT scans use one or more of the following dose optimizing techniques: automated exposure control, MA and/or KvP adjustment based on patient size and exam type or iterative reconstruction. HISTORY: severe general abdominal pain COMPARISON: None available. FINDINGS: Lung bases: The lung bases are clear. Solid organs: The liver is normal without focal lesion. The gallbladder is normal. There is no biliary ductal dilation. There is peripancreatic fluid and inflammatory stranding without evidence of hypoenhancement or ductal dilatation. No peripancreatic loculated collection. Spleen is normal. Adrenal glands are normal. The kidneys are normal without hydronephrosis. Bowel: The stomach and small bowel are normal without obstruction. The colon is normal. There are no secondary signs of acute appendicitis. Peritoneum: Mild free fluid within the retroperitoneum surrounding the pancreatic head and body. No loculated fluid collection or free air. No suspicious lymphadenopathy. Vasculature: Calcification of the aorta without aneurysm. Musculoskeletal: Degenerative changes of the spine without suspicious osseous lesion or compression fracture. Pelvis: The uterus is surgically absent. No adnexal mass. The urinary bladder is normal. IMPRESSION: 1. Findings concerning for acute pancreatitis. Recommend correlation with clinical symptoms and laboratory values. No evidence of necrosis or peripancreatic fluid collection. Dictated by: Dictated on workstation # [id number]
[2023-03-16] MEDS: NS IV 1000 ML 1,000 ML IV SCH ×5 (09:17→21:46)
[2023-03-16 09:40] LABS: LIPASE 9234 U/L (8-78)
--- NOTE | 2023-03-16 09:52 | History & Physical-Hospitalist ---
History of Present Illness HPI/Chief Complaint Chief complaint: Abdominal pain with acute pancreatitis HPI: This is a [facility] patient who presented to the ER with abdominal pain and was found to have acute pancreatitis. Apparently she has a history of alcohol use but none recent. We will obtain an abdominal ultrasound to rule out biliary cause of pancreatitis. Dr. Alba will be consulted and she will be admitted to the ICU due to high risk for decompensation from pancreatitis. Currently she is drowsy but denies any other significant problems. Source: patient Exam Limitations: clinical condition Date Seen 03/16/23 Time Seen by a Provider: 11:00 Attending Physician Diaz Forte MD PCP Admitting Physician: Attending Physician: Referring Physician Date of Admission Home Medications & Allergies Home Medications Reviewed patient Home Medication Reconciliation performed by pharmacy medication reconciliations oven technician and/or nursing. Patients Allergies have been reviewed. Allergies Allergies Coded Allergies aspirin (Unverified Allergy, Mild, UPSET STOMACH, 01/24/09) codeine (Unverified Allergy, Mild, HIVES, 01/24/09) mushroom (Unverified Allergy, Unknown, 01/10/21) Pt states "deathly allergic" to mushrooms. Past Hlxnfnu-Xsglax-Kzkcdj Hx Patient Social History Marrital Status: single Employed/Student: unemployed Tobacco Use?: Yes Tobacco type used: Cigarettes Smoking Status: Current Everyday Smoker Substance use?: No Alcohol Use?: Yes Alcohol Frequency: Rarely Immunizations Up To Date First/Initial COVID19 Vaccinat: UNKNOWN Second COVID19 Vaccination Joe: UNKNOWN Tetanus Booster (TDap): More Than 5 Years Hepatitis A: No Hepatitis B: No PED Vaccines UTD: No Seasonal Allergies Seasonal Allergies: No Current Status Advance Directives: No Communicates: Verbally Primary Language: Indonesian Preferred Spoken Language: Indonesian Is interpretation needed?: No Implanted or Applied Medical D: None Past Medical History Surgeries: Abdominal, Hysterectomy 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 Abdominal Hernia Diabetes, Non-Insulin dep Cervical Did You Recieve Any Treatments: Yes What Type of Treatment Did You: Chemotherapy Eczema, Psoriasis Blood Disorders: No Cervical cancer s/p chemotherapy HTN DM Family Medical History Heart Disease, Diabetes, Hypertension Mother - HTN, DM Father - HTN Sister - HTN Brother - HTN Review of Systems Constitutional: see HPI Gastrointestinal: abdominal pain Physical Exam Physical Exam Vital Signs Vital Signs - First Documented 03/16/23 03/16/23 03/16/23 07:49 10:15 14:20 Temp 35.2 Pulse 98 Resp 25 B/P (MAP) 179/99 (125) Pulse Ox 99 O2 Delivery Room Air FiO2 21 Capillary Refill : Less Than 3 Seconds Height, Weight, BMI Height: 5'8.00" Weight: 192lbs. 0.0oz. 87.589011oc; 28.00 BMI Method:Actual General Appearance: No Apparent Distress, Chronically ill Eyes: Right Eye Normal Inspection, Right Eye PERRL HEENT: PERRL/EOMI, Normal ENT Inspection, Pharynx Normal, Moist Mucous Membranes Neck: Full Range of Motion, Normal Inspection, Non Tender Respiratory: Chest Non Tender, Lungs Clear, Normal Breath Sounds, No Accessory Muscle Use, No Respiratory Distress Cardiovascular: Regular Rate, Rhythm, No Edema, No Gallop, No JVD, No Murmur, Normal Peripheral Pulses Gastrointestinal: Normal Bowel Sounds, No Organomegaly, No Pulsatile Mass, Abnormal Bowel Sounds, Tenderness Back: Normal Inspection, No CVA Tenderness, No Vertebral Tenderness Extremity: Normal Capillary Refill, Normal Inspection, Normal Range of Motion, Non Tender, No Calf Tenderness, No Pedal Edema Neurologic/Psychiatric: Disoriented Skin: Normal Color, Warm/Dry Lymphatic: No Adenopathy Results Results/Procedures Labs Laboratory Tests 03/16/23 08:05 Patient resulted labs reviewed. Assessment/Plan Admission Diagnosis Assessment: Acute pancreatitis Meth use UTI History of alcohol use Smoker Dehydration Plan: Pain medication IV fluids Supportive care ICU Admission Status: Inpatient Order (span 2 midnights) Reason for Inpatient Admission: Severe acute pancreatitis EDDIE CHAND DO Mar 16, 2023 09:52
[2023-03-16 09:58] LABS: BILIRUBIN,URINE NEGATIVE (NEGATIVE); CLARITY,URINE CLOUDY; COLOR,URINE YELLOW; GLUCOSE, URINE (UA) 1+ (NEGATIVE); KETONES,URINE 1+ (NEGATIVE); LEUKOCYTE ESTERASE ,URINE 1+ (NEGATIVE); NITRITE,URINE NEGATIVE (NEGATIVE); PH,URINE 6.5 (5-9); PROTEIN,URINE NEGATIVE (NEGATIVE)
[2023-03-16 10:12] LABS: BACTERIA,URINE LARGE /HPF; WBC,URINE 25-50 /HPF
[2023-03-16 10:23] LABS: AMPHETAMINE SCREEN, URINE POSITIVE (NEGATIVE); BARBITURATE SCREEN URINE NEGATIVE (NEGATIVE); BENZODIAZEPINES SCREEN URINE NEGATIVE (NEGATIVE); CANNABINOID SCREEN, URINE NEGATIVE (NEGATIVE); COCAINE SCREEN URINE NEGATIVE (NEGATIVE); METHADONE STAT NEGATIVE (NEGATIVE); OPIATE SCREEN URINE POSITIVE (NEGATIVE); OXYCODONE STAT NEGATIVE (NEGATIVE); PROPOXYPHENE STAT NEGATIVE (NEGATIVE); TRICYCLIC ANTIDEPRESSANTS SCRE NEGATIVE (NEGATIVE)
[2023-03-16] MEDS ORDERED: ANTACID SUSP 30 ML UDC (MYLANTA) PO PRN ×2 (11:00)
[2023-03-16] MEDS ORDERED: BISACODYL 10 MG SUPP (DULCOLAX) PR PRN (11:00)
[2023-03-16] MEDS ORDERED: diphenhydrAMINE 50 MG/ML INJ (BENADRYL) IVP PRN (11:00)
[2023-03-16] MEDS ORDERED: polyethylene glycoL POWDER 17 GM (MIRALAX) PACK PO PRN (11:00)
[2023-03-16] MEDS ORDERED: ONDANSETRON 4 MG (ZOFRAN) ORAL DISSOLVE TAB SL PRN (11:00)
[2023-03-16] MEDS ORDERED: D5 1/2 NS 1000 ML IV SOLUTION 1,000 ML IV PRN (11:00)
[2023-03-16] MEDS ORDERED: LACTULOSE SYRUP 10GM/15ML (ENULOSE) 30ML UDC PO PRN (11:00)
[2023-03-16] MEDS ORDERED: diphenhydrAMINE 25 MG TAB (BENADRYL) PO PRN (11:00)
[2023-03-16] MEDS ORDERED: LORazepam INJ 2 MG/ML (ATIVAN) VIAL IM/IV PRN (11:00)
[2023-03-16] MEDS ORDERED: 1/2 NS IV SOLUTION 1,000 ML IV PRN (11:00)
[2023-03-16] MEDS ORDERED: CALCIUM CARBONATE 500 MG (TUMS) TAB.CHEW PO PRN (11:00)
[2023-03-16] MEDS ORDERED: MILK OF MAGNESIA 400 MG/5 ML 30 ML UDC PO PRN (11:00)
[2023-03-16] MEDS ORDERED: ONDANSETRON 4 MG/2 ML (SDV) Z0FRAN IV PRN ×2 (11:00)
[2023-03-16] MEDS ORDERED: MELATONIN 3 MG TABLET PO PRN (11:00)
[2023-03-16] MEDS ORDERED: ACETAMINOPHEN 325 MG TABLET PO PRN (11:00)
[2023-03-16] MEDS ORDERED: SENNA W/DOCUSATE (SENOKOT S) TABLET PO PRN (11:00)
[2023-03-16] MEDS ORDERED: LORazepam 1 MG (ATIVAN) TAB PO PRN (11:00)
[2023-03-16] MEDS ORDERED: LORazepam INJ 2 MG/ML (ATIVAN) VIAL IV PRN (11:00)
[2023-03-16] MEDS ORDERED: NS IV 500 ML 500 ML IV PRN (11:00)
[2023-03-16] MEDS ORDERED: ONDANSETRON 4 MG (ZOFRAN) ORAL DISSOLVE TAB PO PRN (11:00)
--- NOTE | 2023-03-16 11:28 | Tele-ICU Consult ---
History of Present Illness History of Present Illness Date Seen by Provider: Mar 16, 2023 Time Seen by Provider: 11:19 History of Present Illness eICU consult 57 yo F came to ED with cc of severe abd pain. Psin stated in epigastrium now whole abd. No nausea or vomiting, no CPm, SOB, dysuria, flank pain, hematuria Given morphine for pain was 07/13, now 10/13, CT abd concerning for acute pancreatitis, lipase 9234!, LA 2.05, BP 184/100, Hx of occasional EtOH according to pt, Also pt has icterus, T Bili 2.8, AST 250, ALT 382, glu 250, Hb a1c 6.9 PMH GERD, DM, Allergies and Home Medications Allergies Coded Allergies: aspirin (Unverified Allergy, Mild, UPSET STOMACH, 01/24/09) codeine (Unverified Allergy, Mild, HIVES, 01/24/09) mushroom (Unverified Allergy, Unknown, 01/10/21) Pt states "deathly allergic" to mushrooms. Home Medications Cephalexin 500 Mg Capsule, 500 MG PO BID Prescribed by: HAYLEY THAKKAR on 06/29/21 0811 Cephalexin 500 Mg Tablet, 500 MG PO BID Prescribed by: TALON SIMPSON on 11/26/212033 Clindamycin HCl 300 Mg Capsule, 300 MG PO TID Prescribed by: EDDIE CHAND on 01/11/21 125 Mupirocin 22 Gm Oint...g., 22 GM TP BID Prescribed by: COTY TONEY on 05/09/215 Naproxen 500 Mg Tablet.dr, 500 MG PO BID Prescribed by: COTY TONEY on 05/09/217 Nicotine 1 Each Patch.td24, 21 MG TD DAILY Prescribed by: EDDIE CHAND on 01/11/21 1259 Sulfamethoxazole/Trimethoprim 1 Each Tablet, 1 EACH PO BID Prescribed by: EDDIE CHAND on 01/11/21 1259 Sulfamethoxazole/Trimethoprim 1 Each Tablet, 1 EACH PO BID Prescribed by: COTY TONEY on 05/09/215 Past Medical/Social/Family Hx Patient Social History Tobacco Use?: Yes Tobacco type used: Cigarettes Smoking Status: Current Everyday Smoker Smokeless Tobacco Frequency: Never a User Use of E-Cig and/or Vaping dev: No Substance use?: No Substance type: Caffeine 1 POP/DAY, 1 PACK OF CIGARETTES/DAY Substance frequency: Daily Alcohol Use?: Yes Alcohol type: Beer, Hard Liquor Alcohol Frequency: Rarely Pt stated abuse/neglect: No Immunizations Up To Date Influenza Vaccine Up-to-Date: No; Not Current First/Initial COVID19 Vaccinat: UNKNOWN Second COVID19 Vaccination Joe: UNKNOWN Tetanus Booster (TDap): More Than 5 Years Hepatitis A: No Hepatitis B: No TB Skin Test: None Current Status Advance Directives: No Communicates: Verbally Primary Language: Tajik Preferred Spoken Language: Tajik Is interpretation needed?: No Implanted or Applied Medical D: None Past Medical History Cervical cancer s/p chemotherapy HTN DM Family Medical History Family Hx: Mother - HTN, DM Father - HTN Sister - HTN Brother - HTN Review of Systems Constitutional: see HPI EENTM: see HPI Respiratory: see HPI Cardiovascular: see HPI Gastrointestinal: see HPI Genitourinary: see HPI Musculoskeletal: see HPI Skin: see HPI Psychiatric/Neurological: See HPI Focused Exam Lactate Level 03/16/23 08:05: Lactic Acid Level 2.05*H 03/16/23 09:58: Lactic Acid Level 0.96 Height, Weight, BMI Height: 5'8.00" Weight: 192lbs. 0.0oz. 87.701938va; 28.89 BMI Method:Actual Lactic Acid Level Laboratory Tests Test 03/16/23 08:05 03/16/23 09:58 Lactic Acid Level 2.05 MMOL/L (0.50-2.00) *H 0.96 MMOL/L (0.50-2.00) Exam Exam Patient acknowledged, consented, and participated in this virtual visit which was conducted using real time audio/video Vital Signs Date Time Temp Pulse Resp B/P (MAP) Pulse Ox O2 Delivery O2 Flow Rate FiO2 03/16/23 11:00 104 16 184/100 (128) 96 Room Air 03/16/23 10:26 102 03/16/23 10:15 105 20 198/107 (137) 96 Room Air 03/16/23 09:51 88 18 205/114 99 03/16/23 07:49 35.2 98 25 179/99 (125) 99 Height & Weight Height: 5'8.00" Weight: 192lbs. 0.0oz. 87.968454vg; 28.89 BMI Method:Actual General Appearance: Mild Distress HEENT: Scleral Icterus (L), Scleral Icterus (R) Respiratory: Lungs Clear Capillary Refill: Less Than 3 Seconds Gastrointestinal: normal bowel sounds, soft, distended; No guarding, No rebound; tenderness (General, worse in the epigastric region) Extremity: No Pedal Edema Neurologic/Psychiatric: Alert Results Lab Laboratory Tests 03/16/23 08:05 Assessment/Plan Assessment/Plan Most likely acute pancreatitis, marked elevation of lipase. To get 3 l of IVF, Hb of 16 suggests severe dehydration, morphine as needed monitor Hb and Calcium, [now 11] With elevated LFT's and T Bili, concerned about hepatitis, would check for Hep A, B, C Pt says only occasional use of EtOH but would still consider EtOH hepatitis Critical Care: Critically Ill Patient Time spent with patient (mins): 30 STAN SHEPPARD MD Mar 16, 2023 11:28
[2023-03-16] MEDS: ENOXAPARIN 40 MG/0.4 ML (LOVENOX) SYR SC SCH (12:40)
[2023-03-16] MEDS: inSUlin ASPART (NovoLOG) 1 UNIT/0.01 ML (CHARGE PER UNIT) SC SCH ×3 (12:41→23:00)
[2023-03-16] MEDS ORDERED: CELE-63 PO (13:27)
[2023-03-16] MEDS ORDERED: DULA1.5P2 SQ (13:27)
[2023-03-16] MEDS ORDERED: CITA20TA9 PO (13:27)
[2023-03-16] MEDS ORDERED: NAPR220T66 PO (13:27)
[2023-03-16] MEDS ORDERED: LISI10TA25 PO (13:27)
[2023-03-16 14:20] VITALS: BP 207/117
[2023-03-16] MEDS: THIAMINE INJECTION 100 MG, FOLIC ACID INJECTION 1 MG, MAGNESIUM SULFATE 2 GM, VITAMIN M... IV SCH ×5 (14:28)
[2023-03-16] MEDS ORDERED: RT-ALBUTEROL SULF 2.5 MG/3 ML PRE-MIX VIAL INH PRN (14:30)
--- NOTE | 2023-03-16 15:23 | Diagnostic Imaging Report ---
PROCEDURE: US Abdomen, limited. TECHNIQUE: Multiple realtime grayscale images were obtained over the abdomen in various projections. INDICATION: Acute pancreatitis COMPARISON: None FINDINGS: The liver is normal in size, shape and echo texture. Total vein shows normal hepatopetal flow. There are no focal lesions. There is no sonographic evidence of intrahepatic biliary ductal dilatation. Common bile duct is not well visualized. Gallbladder is identified. Multiple echogenic gallstones are seen filling the lumen of the gallbladder. This does result in Walker shadow complex. There is no appreciable gallbladder wall thickening or pericholecystic free fluid. The visualized portions of the head and proximal body of the pancreas are within normal limits. The distal body and tail of the pancreas are not visualized due to overlying bowel gas. Trace ascites was reportedly noted by the protection specialist, although static images show no significant free fluid. The right kidney measures approximately 11.7 cm in length and has a normal appearance. The visualized portions of the IVC and aorta are normal. IMPRESSION: 1. Cholelithiasis, but no gallbladder wall thickening or pericholecystic free fluid to suggest acute cholecystitis. 2. Trace ascites. Dictated by: Dictated on workstation # [id number]
--- NOTE | 2023-03-16 16:06 | Tele-ICU Progress Note ---
Subjective Date Seen by a Provider: Mar 16, 2023 Time Seen by a Provider: 16:04 Subjective/Events-last exam called for elevated BP, now 188/99, with HR 90 will order PRN IV hydralazine for SBP > 160 Yg Sheppard MD Sepsis Event Evaluation Height, Weight, BMI Height: 5'8.00" Weight: 192lbs. 0.0oz. 87.595853gq; 28.89 BMI Method:Actual Focused Exam Lactate Level 03/16/23 08:05: Lactic Acid Level 2.05*H 03/16/23 09:58: Lactic Acid Level 0.96 Exam Exam Patient acknowledged, consented, and participated in this virtual visit which was conducted using real time audio/video Vital Signs Date Time Temp Pulse Resp B/P (MAP) Pulse Ox O2 Delivery O2 Flow Rate FiO2 03/16/23 14:20 36.1 90 96 21 03/16/23 14:00 91 20 189/99 (129) 98 Room Air 03/16/23 13:00 91 18 203/110 (141) 98 Room Air 03/16/23 13:00 90 03/16/23 12:00 98 18 207/117 (147) 96 Room Air 03/16/23 11:39 36.1 03/16/23 11:00 104 16 184/100 (128) 96 Room Air 03/16/23 10:26 102 03/16/23 10:15 105 20 198/107 (137) 96 Room Air 03/16/23 10:10 36.7 03/16/23 09:51 88 18 205/114 99 03/16/23 07:49 35.2 98 25 179/99 (125) 99 Height & Weight Height: 5'8.00" Weight: 192lbs. 0.0oz. 87.259613bz; 28.89 BMI Method:Actual General Appearance: Mild Distress HEENT: Scleral Icterus (L), Scleral Icterus (R) Respiratory: Lungs Clear Capillary Refill: Less Than 3 Seconds Gastrointestinal: normal bowel sounds, soft, distended; No guarding, No rebound; tenderness (General, worse in the epigastric region) Extremity: No Pedal Edema Neurologic/Psychiatric: Alert Results Lab Laboratory Tests 03/16/23 08:05 Assessment/Plan Assessment/Plan pancreatitis, HTN, dehydration IV hydralazine 10 mg PRN SBP > 160 Critical Care: Critically Ill Patient Time spent with patient (mins): 15 STAN SHEPPARD MD Mar 16, 2023 16:06
[2023-03-16] MEDS ORDERED: hydrALAZINE (APESOLINE) 20 MG/ML VIAL IV PRN ×2 (16:15→20:00)
[2023-03-16] MEDS: HYDROmorphone 2 MG/ML VIAL (DILAUDID) IV PRN (16:26)
[2023-03-16] MEDS: MAGNESIUM 1 GM/100 ML IVPB 100 ML IV SCH ×3 (16:52→19:17)
--- NOTE | 2023-03-16 18:32 | Consultation - Surgery ---
History of Present Illness History of Present Illness Patient Consulted On(zay/time) 03/16/23 18:26 Date Seen by Provider: Mar 16, 2023 Time Seen by Provider: 17:21 History of Present Illness Consult requested by DR. Chand for pancreatitis. Patient is a 57 year old female who is lethargic but answering questions. She states she began having pain yesterday in epigastric area. Had some nausea and vomiting. Pain sharp pain no radiation in epigastric area. Patient pain moderate to severe and constant. She states she rarely drinks. She denies any drugs to me, but opiates and amphetamine/methamphetamine is positive. Patient had ct scan demonstrating findings suggestive of pancreatitis. Allergies and Home Medications Allergies Coded Allergies: aspirin (Unverified Allergy, Mild, UPSET STOMACH, 01/24/09) codeine (Unverified Allergy, Mild, HIVES, 01/24/09) mushroom (Unverified Allergy, Unknown, 01/10/21) Pt states "deathly allergic" to mushrooms. Patient Home Medication List Home Medication List Reviewed: Yes Celecoxib (Celecoxib) 200 Mg Capsule, 200 MG PO HS, (Reported) Entered as Reported by: DELMA SANTIZO on 03/16/231326 Last Action: Reviewed Citalopram Hydrobromide (Citalopram HBr) 20 Mg Tablet, 20 MG PO HS, (Reported) Entered as Reported by: DELMA SANTIZO on 03/16/231326 Last Action: Reviewed Dulaglutide (Trulicity) 1.5 Mg/0.5 Ml Pen.injctr, 1.5 MG SQ SAT, (Reported) Entered as Reported by: DELMA SANTIZO on 03/16/231326 Last Action: Reviewed Lisinopril (Lisinopril) 10 Mg Tablet, 10 MG PO HS, (Reported) Entered as Reported by: DELMA SANTIZO on 03/16/231326 Last Action: Reviewed Naproxen Sodium (Aleve) 220 Mg Tablet, 440 MG PO Q12H PRN for PAIN-MILD (1-4), (Reported) Entered as Reported by: DELMA SANTIZO on 03/16/231326 Last Action: Reviewed Discontinued Medications Cephalexin (Cephalexin) 500 Mg Capsule, 500 MG PO BID Discontinued Reason: No Longer Taking Prescribed by: HAYLEY THAKKAR on 9/26/21 0811 Last Action: Discontinued Cephalexin (Cephalexin) 500 Mg Tablet, 500 MG PO BID Discontinued Reason: No Longer Taking Prescribed by: TALON SIMPSON on 11/26/212033 Last Action: Discontinued Clindamycin HCl (Clindamycin HCl) 300 Mg Capsule, 300 MG PO TID Discontinued Reason: No Longer Taking Prescribed by: EDDIE CHAND on 01/11/211258 Last Action: Discontinued Mupirocin (Mupirocin) 22 Gm Oint...g., 22 GM TP BID Discontinued Reason: No Longer Taking Prescribed by: COTY TONEY on 05/09/215 Last Action: Discontinued Naproxen (Naproxen) 500 Mg Tablet.dr, 500 MG PO BID Discontinued Reason: No Longer Taking Prescribed by: COTY TONEY on 05/09/217 Last Action: Discontinued Nicotine (Nicotine Patch) 1 Each Patch.td24, 21 MG TD DAILY Discontinued Reason: No Longer Taking Prescribed by: EDDIE CHAND on 01/11/211258 Last Action: Discontinued Sulfamethoxazole/Trimethoprim (Bactrim Ds Tablet) 1 Each Tablet, 1 EACH PO BID Discontinued Reason: No Longer Taking Prescribed by: EDDIE CHAND on 01/11/211258 Last Action: Discontinued Sulfamethoxazole/Trimethoprim (Bactrim Ds Tablet) 1 Each Tablet, 1 EACH PO BID Discontinued Reason: No Longer Taking Prescribed by: COTY TONEY on 05/09/215 Last Action: Discontinued Past Ncfklfj-Pcecxf-Ukatbo Hx Patient Social History 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 Smoking Status: Current Everyday Smoker Type Used: Cigarettes 2nd Hand Smoke Exposure: Yes Recent Hopitalizations: No Alcohol Use?: Yes Substance type: Caffeine Immunizations Up To Date PED Vaccines UTD: No Seasonal Allergies Seasonal Allergies: No Surgeries History of Surgeries: Yes (SCALP LACERATION REPAIR) Surgeries: Abdominal, Hysterectomy Respiratory History of Respiratory Disorde: No Cardiovascular History of Cardiac Disorders: Yes Cardiac Disorders: Hypertension Neurological History of Neurological Disord: No 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 Genitourinary History of Genitourinary Disor: No Gastrointestinal History of Gastrointestinal Di: Yes (ABDOMINAL HERNIA REPAIR A CHILD) Gastrointestinal Disorders: Abdominal Hernia Musculoskeletal History of Musculoskeletal Dis: No Endocrine History of Endocrine Disorders: Yes ( REPORTS NONCOMPLIANT 01/09/2021) Endocrine Disorders: Diabetes, Non-Insulin dep HEENT History of HEENT Disorders: No Cancer History of Cancer: Yes Cancer: Cervical Psychosocial History of Psychiatric Problem: No Integumentary History of Skin or Integumenta: Yes Skin/Integumentary Disorders: Eczema, Psoriasis Blood Transfusions History of Blood Disorders: No Reviewed Nursing Assessment Reviewed/Agree w Nursing PMH: Yes Family Medical History Significant Family History: Heart Disease, Diabetes, Hypertension Review of Systems-General Constitutional: No chills EENTM: No blurred vision, No double vision Respiratory: No cough, No dyspnea on exertion Cardiovascular: No chest pain, No palpitations Gastrointestinal: abdominal pain (epigastric), nausea, vomiting Genitourinary: No decreased output, No discharge Musculoskeletal: No back pain, No joint pain Skin: No change in color, No change in hair/nails Psychiatric/Neurological: Denies Anxiety, Denies Depressed, Denies Emotional Problems All Other Systems Reviewed Negative Unless Noted: Yes Physical Exam-General Problems Physical Exam Vital Signs Vital Signs - First Documented 03/16/23 03/16/23 03/16/23 07:49 10:15 14:20 Temp 35.2 Pulse 98 Resp 25 B/P (MAP) 179/99 (125) Pulse Ox 99 O2 Delivery Room Air FiO2 21 Capillary Refill : Less Than 3 Seconds General Appearance: WD/WN, other (lethargic) HEENT: PERRL/EOMI, normal ENT inspection Neck: non-tender, supple Respiratory: chest non-tender, no respiratory distress, no accessory muscle use Cardiovascular: regular rate, rhythm, no JVD Gastrointestinal: soft, tenderness (epigastric) Rectal: deferred Back: no CVA tenderness, no vertebral tenderness Extremities: non-tender, normal inspection Neurologic/Psychiatric: alert (but lethargic) Skin: normal color, warm/dry Lymphatic: no adenopathy Data Review Labs Laboratory Tests 03/16/23 08:05: White Blood Count 12.0H, Red Blood Count 5.36H, Hemoglobin 16.3H, Hematocrit 46, Mean Corpuscular Volume 85, Mean Corpuscular Hemoglobin 30, Mean Corpuscular Hemoglobin Concent 36, Red Cell Distribution Width 12.5, Platelet Count 359, Mean Platelet Volume 10.0, Immature Granulocyte % (Auto) 1, Neutrophils (%) (Auto) 83H, Lymphocytes (%) (Auto) 11L, Monocytes (%) (Auto) 5, Eosinophils (%) (Auto) 0, Basophils (%) (Auto) 1, Neutrophils # (Auto) 9.9H, Lymphocytes # (Auto) 1.3, Monocytes # (Auto) 0.6, Eosinophils # (Auto) 0.0, Basophils # (Auto) 0.1, Immature Granulocyte # (Auto) 0.1, Prothrombin Time 12.6, INR Comment 0.9, Activated Partial Thromboplast Time 27, Sodium Level 138, Potassium Level 3.7, Chloride Level 100, Carbon Dioxide Level 23, Anion Gap 15H, Blood Urea Nitrogen 18, Creatinine 0.88, Estimat Glomerular Filtration Rate 76, BUN/Creatinine Ratio 20, Glucose Level 225H, Lactic Acid Level 2.05*H, Calcium Level 11.0H, Corrected Calcium 10.8H, Magnesium Level 1.6, Total Bilirubin 2.8H, Aspartate Amino Transf (AST/SGOT) 259H, Alanine Aminotransferase (ALT/SGPT) 382H, Alkaline Phosphatase 224H, Lactate Dehydrogenase 424H, Total Protein 8.2, Albumin 4.3, Triglycerides Level 119, Lipase 9234H, Serum Alcohol < 10 03/16/23 09:48: Urine Color YELLOW, Urine Clarity CLOUDY, Urine pH 6.5, Urine Specific [place] <=1.005, Urine Protein NEGATIVE, Urine Glucose (UA) 1+H, Urine Ketones 1+H, Urine Nitrite NEGATIVE, Urine Bilirubin NEGATIVE, Urine Urobilinogen 2.0, Urine Leukocyte Esterase 1+H, Urine RBC (Auto) TRACE-IH, Urine RBC 10-25H, Urine WBC 25-50H, Urine Squamous Epithelial Cells 5-10, Urine Crystals NONE, Urine Bacteria LARGEH, Urine Casts NONE, Urine Mucus NEGATIVE, Urine Culture Indicated YES, Urine Opiates Screen POSITIVEH, Urine Oxycodone Screen NEGATIVE, Urine Methadone Screen NEGATIVE, Urine Propoxyphene Screen NEGATIVE, Urine Barbiturates Screen NEGATIVE, Ur Tricyclic Antidepressants Screen NEGATIVE, Urine Phencyclidine Screen NEGATIVE, Urine Amphetamines Screen POSITIVEH, Urine Methamphetamines Screen POSITIVEH, Urine Benzodiazepines Screen NEGATIVE, Urine Cocaine Screen NEGATIVE, Urine Cannabinoids Screen NEGATIVE 03/16/23 09:58: Lactic Acid Level 0.96 03/16/23 10:56: Glucometer 256H 03/16/23 16:42: Glucometer 283H Assessment/Plan Assessment/Plan Assessment/Plan epigastric pain pancreatitis substance use cholelithiasis had u/s done which demonstrates cholelithiasis would recommend having it removed in near future as this could be the cause of pancreatitis First needs to get over the pancreatitis first. clears iv fluids pain control supportive measures TOMER DE LA CRUZ DO Mar 16, 2023 18:32
[2023-03-16] MEDS ORDERED: ENALAPRILAT 2.5 MG/2 ML (VASOTEC) VIAL IV PRN (20:00)
[2023-03-16] MEDS ORDERED: LABETALOL HCL 20 MG/4 ML VIAL IV PRN ×2 (20:00)
[2023-03-16] MEDS ORDERED: hydrALAZINE (APESOLINE) 20 MG/ML VIAL ONE (20:07)
[2023-03-16] MEDS: hydrALAZINE (APESOLINE) 20 MG/ML VIAL IV PRN (20:10)
[2023-03-16] MEDS: SENNOSIDES 8.6 MG (SENOKOT) TAB PO SCH (20:17)
[2023-03-16] MEDS: DOCUSATE SODIUM 100 MG (COLACE) CAP PO SCH (20:17)
[2023-03-16] MEDS ORDERED: inSUlin ASPART (NovoLOG) 1 UNIT/0.01 ML (CHARGE PER UNIT) SC SCH (21:00)
[2023-03-16] MEDS: cefTRIAXone IV/IM 1,000 MG in NS (IVPB) 50 ML IV SCH (21:46)
[2023-03-16 22:12] LABS: HEPATITIS C ANTIBODY C Reactive (Non-Reactive)
[2023-03-16] MEDS: NICOTINE 21 MG (NICODERM) PATCH TD SCH (22:56)
[2023-03-17] MEDS: hydrALAZINE (APESOLINE) 20 MG/ML VIAL IV PRN ×4 (03:51→21:42)
[2023-03-17] MEDS: NS IV 1000 ML 1,000 ML IV SCH ×4 (03:52→14:17)
[2023-03-17] MEDS: inSUlin ASPART (NovoLOG) 1 UNIT/0.01 ML (CHARGE PER UNIT) SC SCH ×4 (05:35→20:51)
[2023-03-17 05:36] LABS: ALBUMIN 3.4 GM/DL (3.2-4.5); POTASSIUM 3.5 MMOL/L (3.6-5.0)
[2023-03-17] MEDS: MAGNESIUM 1 GM/100 ML IVPB 100 ML IV SCH (05:37)
[2023-03-17] MEDS: KCL 20 MEQ TAB (K-DUR) PO SCH (05:37)
[2023-03-17] MEDS: POTASSIUM CL 10MEQ/50ML IVPB 50 ML IV SCH (05:37)
[2023-03-17 05:38] LABS: CALCIUM 8.7 MG/DL (8.5-10.1)
[2023-03-17 05:39] LABS: TOTAL PROTEIN 6.6 GM/DL (6.4-8.2)
[2023-03-17 05:41] LABS: BILIRUBIN,TOTAL 4.2 MG/DL (0.1-1.0)
[2023-03-17 05:42] LABS: PHOSPHORUS 2.5 MG/DL (2.3-4.7)
[2023-03-17 05:43] LABS: CREATININE SERUM 0.62 MG/DL (0.60-1.30)
[2023-03-17 05:46] LABS: MAGNESIUM 2.1 MG/DL (1.6-2.4)
--- NOTE | 2023-03-17 05:52 | Progress Note - Hospitalist ---
Subjective HPI/CC On Admission Date Seen by Provider: Mar 17, 2023 Time Seen by Provider: 08:00 Chief complaint: Abdominal pain with acute pancreatitis HPI: This is a [facility] patient who presented to the ER with abdominal pain and was found to have acute pancreatitis. Apparently she has a history of alcohol use but none recent. We will obtain an abdominal ultrasound to rule out biliary cause of pancreatitis. Dr. Alba will be consulted and she will be admitted to the ICU due to high risk for decompensation from pancreatitis. Currently she is drowsy but denies any other significant problems. Subjective/Events-last exam Patient much improved IV fluid maintained Labs improved UTI being treated with Rocephin Patient still drowsy coming off from meth withdrawal Review of Systems General: Fatigue, Malaise Gastrointestinal: Abdominal Pain Focused Exam Lactate Level 03/16/23 08:05: Lactic Acid Level 2.05*H 03/16/23 09:58: Lactic Acid Level 0.96 Objective Exam Vital Signs Vital Signs Date Time Temp Pulse Resp B/P (MAP) Pulse Ox O2 Delivery O2 Flow Rate FiO2 03/17/23 19:40 37.2 101 18 184/88 (120) 94 Room Air 03/16/23 14:20 21 Capillary Refill : Less Than 3 Seconds General Appearance: No Apparent Distress, WD/WN, Chronically ill Respiratory: Lungs Clear, Normal Breath Sounds Cardiovascular: Regular Rate, Rhythm Neurologic/Psychiatric: Alert, Oriented x3, No Motor/Sensory Deficits, Normal Mood/Affect Results/Procedures Lab Laboratory Tests 03/17/23 04:23 03/17/23 09:26 Patient resulted labs reviewed. Assessment/Plan Assessment and Plan Assess & Plan/Chief Complaint Assessment: Acute pancreatitis Meth use UTI History of alcohol use Smoker Dehydration Plan: Pain medication IV fluids Supportive care Critical Care Critically Ill Patient CHANDFELICITAS PINOJosé MCCORMACK Mar 17, 2023 05:52
[2023-03-17] MEDS ORDERED: KCL 20 MEQ TAB (K-DUR) PO ONE (08:00)
--- NOTE | 2023-03-17 08:02 | Diagnostic Imaging Report ---
INDICATION: Hypoxia, acute pancreatitis, ICU care management. TECHNIQUE: Single view chest 5:16 AM. CORRELATION STUDY: None FINDINGS: The heart size, mediastinal configuration and pulmonary vascularity are within normal limits. Minimal atelectasis suggested left lung base. Lungs otherwise clear. No significant effusion. IMPRESSION: 1. Minimal left basilar atelectasis. Dictated by: Dictated on workstation # [id number]
[2023-03-17] MEDS: NICOTINE 21 MG (NICODERM) PATCH TD SCH (08:49)
[2023-03-17] MEDS: PANTOPRAZOLE 40 MG (PROTONIX) VIAL IV SCH (08:49)
[2023-03-17] MEDS: DOCUSATE SODIUM 100 MG (COLACE) CAP PO SCH ×2 (08:50→21:01)
[2023-03-17] MEDS: THIAMINE INJECTION 100 MG, FOLIC ACID INJECTION 1 MG, MAGNESIUM SULFATE 2 GM, VITAMIN M... IV SCH ×5 (08:50)
[2023-03-17] MEDS: SENNOSIDES 8.6 MG (SENOKOT) TAB PO SCH ×2 (08:50→21:01)
[2023-03-17 09:36] LABS: BASOPHILS % (AUTO) 0 % (0-10); EOSINOPHILS % (AUTO) 0 % (0-10); HEMATOCRIT 42 % (35-52); HEMOGLOBIN 14.8 g/dL (11.5-16.0); LYMPHOCYTES # (AUTO) 1.1 10^3/uL (1.0-4.0); LYMPHOCYTES % (AUTO) 12 % (12-44); MEAN CORPUSCULAR HEMOGLOBIN 31 pg (25-34); MEAN CORPUSCULAR HGB CONC 35 g/dL (32-36); MEAN CORPUSCULAR VOLUME 88 fL (80-99); MEAN PLATELET VOLUME 10.1 fL (9.0-12.2); MONOCYTES # (AUTO) 0.4 10^3/uL (0.0-1.0); MONOCYTES % (AUTO) 5 % (0-12); NEUTROPHILS % (AUTO) 83 % (42-75); PLATELET COUNT 268 10^3/uL (130-400); WHITE BLOOD COUNT 9.6 10^3/uL (4.3-11.0)
--- NOTE | 2023-03-17 10:51 | Tele-ICU Progress Note ---
Subjective Date Seen by a Provider: Mar 17, 2023 Time Seen by a Provider: 10:51 Subjective/Events-last exam (Tele-ICU Physician , Progress Note ) Service provided via interactive audio and video telecommunications E-CARE system to a patient admitted to ICU bed in [facility]. Patient is seen today due to persistent need of ICU care Available chart/ vitals / labs / Images reviewed Video assessment done using teleICU camera, rest of exam as per RN Discussed with RN Events overnight : Afebrile hemodynamically stable Respiratory - ra I/O = + Drips: ns 175 Pressors- no Hospital course: (03/16) 57F Admitted with Acute pancreatitis without necrosis or infection. sx services placed on consult, medical management for now. A/P Acute pancreatitis - ? etiology - TGL WNL , ? eton , ? cholelithiasis - hydration , pain control - CT - without necrosis or abscess -conservative management Meth use, ? ETON - + on urine tox , patient denies - vitamins , monitor UTI - on cefriaxine Elev LFTs had u/s done which demonstrates cholelithiasis - sx follows -Hep C + AB Lines : periph , (Central Line Necessity Reviewed) Sloan: void OG: Nutrition: clears Analgesia: Anxiety/ delirium VTE Prophylaxis: omid Stress Ulcer Prophylaxis: ppi Plans in collaboration with bedside consultants and IM MDs. Discussed with RN to reach out if any questions or concerns Case and care daily discussed on multidisciplinary rounds ( RN, PharmD, Irrigator Valve Pipe , Respiratory Therapy, human service worker ) A total of 20 minutes of critical care time was devoted to this patient today, required to treat and/or prevent further deterioration of critical care condition ( as above ) . I am remotely monitoring this patient from another state. I am unable to do the bedside exam, and history/physical and pertinent information is taken from other notes in the computer and bedside staff. Sepsis Event Evaluation Height, Weight, BMI Height: 5'8.00" Weight: 192lbs. 0.0oz. 87.155242ej; 28.89 BMI Method:Actual Focused Exam Lactate Level 03/16/23 08:05: Lactic Acid Level 2.05*H 03/16/23 09:58: Lactic Acid Level 0.96 Exam Exam Patient acknowledged, consented, and participated in this virtual visit which was conducted using real time audio/video Vital Signs Date Time Temp Pulse Resp B/P (MAP) Pulse Ox O2 Delivery O2 Flow Rate FiO2 03/17/23 10:00 93 21 152/86 (108) 95 Room Air 03/17/23 09:00 105 23 160/85 (110) 96 Room Air 03/17/23 08:00 97 28 158/89 (112) 96 Room Air 03/17/23 07:54 37.5 03/17/23 07:00 96 28 151/81 (104) 95 Room Air 03/17/23 07:00 99 03/17/23 06:14 99 26 144/78 (100) 97 Room Air 03/17/23 05:45 102 18 144/77 (99) 96 Room Air 03/17/23 05:43 169/96 (120) 03/17/23 05:00 105 167/89 (115) 97 Room Air 03/17/23 04:00 115 154/85 (108) 96 Room Air 03/17/23 03:50 37.2 92 16 164/84 (110) 97 Room Air 03/17/23 03:50 97 Room Air 03/17/23 03:00 93 158/89 (112) 97 Room Air 03/17/23 02:00 92 162/88 (111) 97 Room Air 03/17/23 01:00 84 03/17/23 01:00 84 157/83 (111) 97 Room Air 03/17/23 00:00 99 159/82 (107) 97 Room Air 03/16/23 23:00 96 Room Air 03/16/23 23:00 36.6 95 20 159/79 (105) 96 Room Air 03/16/23 22:30 92 22 149/76 (101) 96 Room Air 03/16/23 22:00 96 161/99 (113) 88 Room Air 03/16/23 21:00 101 153/79 (104) 97 Room Air 03/16/23 20:48 95 Room Air 03/16/23 20:30 154/72 (99) 03/16/23 20:10 184/93 (123) 03/16/23 19:35 191/104 (133) 03/16/23 19:30 35.9 03/16/23 19:22 200/110 (140) 03/16/23 19:20 97 Room Air 03/16/23 19:19 85 16 97 Room Air 03/16/23 19:03 78 03/16/23 19:00 36.1 82 16 188/95 (126) 96 Room Air 03/16/23 18:00 99 20 185/97 (126) 97 Room Air 03/16/23 17:00 96 17 202/112 (142) 97 Room Air 03/16/23 16:40 36.3 Room Air 03/16/23 16:00 94 16 217/95 (135) 96 Room Air 03/16/23 16:00 98 Room Air 03/16/23 15:00 96 20 196/128 (150) 98 Room Air 03/16/23 14:20 36.1 90 96 21 03/16/23 14:00 91 20 189/99 (129) 98 Room Air 03/16/23 13:00 91 18 203/110 (141) 98 Room Air 03/16/23 13:00 90 03/16/23 12:00 98 18 207/117 (147) 96 Room Air 03/16/23 12:00 98 Room Air 03/16/23 11:39 36.1 03/16/23 11:00 104 16 184/100 (128) 96 Room Air I & O 03/17/23 07:00 Intake Total 6775 ml Output Total 2325 ml Balance 4450 ml Height & Weight Height: 5'8.00" Weight: 192lbs. 0.0oz. 87.164032yo; 28.89 BMI Method:Actual General Appearance: No Apparent Distress, Chronically ill HEENT: PERRL/EOMI, Normal ENT Inspection, Pharynx Normal, Moist Mucous Membranes Neck: Full Range of Motion, Normal Inspection, Non Tender Respiratory: Chest Non Tender, Lungs Clear, Normal Breath Sounds, No Accessory Muscle Use, No Respiratory Distress Cardiovascular: Regular Rate, Rhythm, No Edema, No Gallop, No JVD, No Murmur, Normal Peripheral Pulses Capillary Refill: Less Than 3 Seconds Gastrointestinal: soft, tenderness (epigastric) Extremity: Normal Capillary Refill, Normal Inspection, Normal Range of Motion, Non Tender, No Calf Tenderness, No Pedal Edema Neurologic/Psychiatric: Disoriented Skin: Normal Color, Warm/Dry Lymphatic: No Adenopathy Results Lab Laboratory Tests 03/16/23 08:05 03/17/23 04:23 03/17/23 09:26 Assessment/Plan Assessment/Plan 1 VIKRAM DAVILA MD Mar 17, 2023 10:51
[2023-03-17] MEDS: ENOXAPARIN 40 MG/0.4 ML (LOVENOX) SYR SC SCH (11:07)
[2023-03-17] MEDS: HYDROmorphone 2 MG/ML VIAL (DILAUDID) IV PRN ×2 (14:13→21:42)
[2023-03-17 19:40] VITALS: BP 184/88
[2023-03-17] MEDS: cefTRIAXone IV/IM 1,000 MG in NS (IVPB) 50 ML IV SCH (21:02)
--- NOTE | 2023-03-17 22:15 | Progress Note - Surgery ---
Subjective Date Seen by a Provider: Mar 17, 2023 Time Seen by a Provider: 17:11 Subjective/Events-last exam Patient drowsy. Pain better some. Tolerating clears. Last used meth few days ago she states, smokes it. Denies n/v fever sweats chills shortness of breath or chest pain at this time. Labs improving. Focused Exam Lactate Level 03/16/23 08:05: Lactic Acid Level 2.05*H 03/16/23 09:58: Lactic Acid Level 0.96 Objective Exam Vital Signs Date Time Temp Pulse Resp B/P (MAP) Pulse Ox O2 Delivery O2 Flow Rate FiO2 03/17/23 21:00 98 Room Air 03/17/23 19:40 37.2 101 18 184/88 (120) 94 Room Air 03/17/23 19:00 92 03/17/23 16:19 36.7 100 18 169/83 (111) 95 Room Air 03/17/23 14:03 36.7 95 18 170/81 (110) 95 Room Air 03/17/23 13:00 93 03/17/23 12:00 36.4 03/17/23 12:00 99 Room Air 03/17/23 12:00 90 28 174/93 (120) 96 Room Air 03/17/23 11:00 94 22 144/87 (106) 97 Room Air 03/17/23 10:00 93 21 152/86 (108) 95 Room Air 03/17/23 09:00 105 23 160/85 (110) 96 Room Air 03/17/23 08:00 97 28 158/89 (112) 96 Room Air 03/17/23 08:00 98 Room Air 03/17/23 07:54 37.5 03/17/23 07:00 96 28 151/81 (104) 95 Room Air 03/17/23 07:00 99 03/17/23 06:14 99 26 144/78 (100) 97 Room Air 03/17/23 05:45 102 18 144/77 (99) 96 Room Air 03/17/23 05:43 169/96 (120) 03/17/23 05:00 105 167/89 (115) 97 Room Air 03/17/23 04:00 115 154/85 (108) 96 Room Air 03/17/23 03:50 37.2 92 16 164/84 (110) 97 Room Air 03/17/23 03:50 97 Room Air 03/17/23 03:00 93 158/89 (112) 97 Room Air 03/17/23 02:00 92 162/88 (111) 97 Room Air 03/17/23 01:00 84 03/17/23 01:00 84 157/83 (111) 97 Room Air 03/17/23 00:00 99 159/82 (107) 97 Room Air 03/16/23 23:00 96 Room Air 03/16/23 23:00 36.6 95 20 159/79 (105) 96 Room Air 03/16/23 22:30 92 22 149/76 (101) 96 Room Air I & O 03/17/23 07:00 Intake Total 6775 ml Output Total 2325 ml Balance 4450 ml Capillary Refill : Less Than 3 Seconds General Appearance: No Apparent Distress, WD/WN, Chronically ill HEENT: PERRL/EOMI, Normal ENT Inspection, Pharynx Normal, Moist Mucous Membranes Neck: Full Range of Motion, Normal Inspection, Non Tender Respiratory: Chest Non Tender, No Accessory Muscle Use, No Respiratory Distress Cardiovascular: Regular Rate, Rhythm, No JVD Gastrointestinal: soft, tenderness (epigastric) Extremity: Normal Capillary Refill, Normal Inspection, Normal Range of Motion, Non Tender, No Calf Tenderness, No Pedal Edema Neurologic/Psychiatric: Alert, Oriented x3, No Motor/Sensory Deficits, Normal Mood/Affect Skin: Normal Color, Warm/Dry Lymphatic: No Adenopathy Results Lab Laboratory Tests 03/16/23 22:55: Glucometer 269H 03/17/23 04:23: Sodium Level 133L, Potassium Level 3.5L, Chloride Level 101, Carbon Dioxide Level 21, Anion Gap 11, Blood Urea Nitrogen 7, Creatinine 0.62, Estimat Glomerular Filtration Rate 103, BUN/Creatinine Ratio 11, Glucose Level 126H, Calcium Level 8.7, Corrected Calcium 9.2, Phosphorus Level 2.5, Magnesium Level 2.1, Total Bilirubin 4.2H, Aspartate Amino Transf (AST/SGOT) 217H, Alanine Aminotransferase (ALT/SGPT) 408H, Alkaline Phosphatase 222H, Total Protein 6.6, Albumin 3.4, Lipase 194H 03/17/23 05:35: Glucometer 145H 03/17/23 09:26: White Blood Count 9.6, Red Blood Count 4.83, Hemoglobin 14.8, Hematocrit 42, Mean Corpuscular Volume 88, Mean Corpuscular Hemoglobin 31, Mean Corpuscular Hemoglobin Concent 35, Red Cell Distribution Width 12.6, Platelet Count 268, Mean Platelet Volume 10.1, Immature Granulocyte % (Auto) 0, Neutrophils (%) (Auto) 83H, Lymphocytes (%) (Auto) 12, Monocytes (%) (Auto) 5, Eosinophils (%) (Auto) 0, Basophils (%) (Auto) 0, Neutrophils # (Auto) 8.0H, Lymphocytes # (Auto) 1.1, Monocytes # (Auto) 0.4, Eosinophils # (Auto) 0.0, Basophils # (Auto) 0.0, Immature Granulocyte # (Auto) 0.0 03/17/23 11:43: Glucometer 251H 03/17/23 15:36: Glucometer 232H 03/17/23 20:14: Glucometer 157H Microbiology 03/16/23 MRSA Screen - Final, Complete MRSA not isolated 03/16/23 Urine Culture - Final, Complete Escherichia coli Assessment/Plan Assessment/Plan Assessment/Plan epigastric pain pancreatitis substance use cholelithiasis had u/s done which demonstrates cholelithiasis would recommend having it removed in near future as this could be the cause of pancreatitis First needs to get over the pancreatitis first. clears iv fluids pain control supportive measures still drowsy, admits to recent meth use likely cause TOMER DE LA CRUZ DO Mar 17, 2023 22:15
[2023-03-17 23:16] VITALS: BP 153/72
[2023-03-18] MEDS: NS IV 1000 ML 1,000 ML IV SCH (01:57)
[2023-03-18 03:14] VITALS: BP 177/85
[2023-03-18] MEDS: hydrALAZINE (APESOLINE) 20 MG/ML VIAL IV PRN ×2 (03:52→11:59)
[2023-03-18] MEDS: HYDROmorphone 2 MG/ML VIAL (DILAUDID) IV PRN (05:05)
[2023-03-18] MEDS: inSUlin ASPART (NovoLOG) 1 UNIT/0.01 ML (CHARGE PER UNIT) SC SCH ×2 (05:31→11:15)
[2023-03-18 06:17] LABS: BASOPHILS % (AUTO) 0 % (0-10); EOSINOPHILS % (AUTO) 0 % (0-10); HEMATOCRIT 41 % (35-52); HEMOGLOBIN 14.3 g/dL (11.5-16.0); LYMPHOCYTES # (AUTO) 1.3 10^3/uL (1.0-4.0); LYMPHOCYTES % (AUTO) 11 % (12-44); MEAN CORPUSCULAR HEMOGLOBIN 30 pg (25-34); MEAN CORPUSCULAR HGB CONC 35 g/dL (32-36); MEAN CORPUSCULAR VOLUME 88 fL (80-99); MEAN PLATELET VOLUME 10.5 fL (9.0-12.2); MONOCYTES # (AUTO) 0.6 10^3/uL (0.0-1.0); MONOCYTES % (AUTO) 5 % (0-12); NEUTROPHILS # (AUTO) 10.1 10^3/uL (1.8-7.8); NEUTROPHILS % (AUTO) 84 % (42-75); PLATELET COUNT 274 10^3/uL (130-400); WHITE BLOOD COUNT 12.1 10^3/uL (4.3-11.0)
[2023-03-18 06:36] LABS: ALBUMIN 3.3 GM/DL (3.2-4.5)
[2023-03-18 06:37] LABS: POTASSIUM 3.5 MMOL/L (3.6-5.0)
[2023-03-18 06:38] LABS: CALCIUM 9.4 MG/DL (8.5-10.1)
[2023-03-18 06:39] LABS: TOTAL PROTEIN 6.4 GM/DL (6.4-8.2)
[2023-03-18 06:43] LABS: CREATININE SERUM 0.65 MG/DL (0.60-1.30)
[2023-03-18] MEDS: KCL 20 MEQ TAB (K-DUR) PO SCH (06:44)
[2023-03-18] MEDS: POTASSIUM CL 10MEQ/50ML IVPB 50 ML IV SCH (06:44)
[2023-03-18] MEDS: MAGNESIUM 1 GM/100 ML IVPB 100 ML IV SCH (06:44)
[2023-03-18] MEDS ORDERED: KCL 20 MEQ TAB (K-DUR) PO NR (07:00)
[2023-03-18 07:39] VITALS: BP 140/70
[2023-03-18] MEDS: PANTOPRAZOLE 40 MG (PROTONIX) VIAL IV SCH (08:32)
[2023-03-18] MEDS: SENNOSIDES 8.6 MG (SENOKOT) TAB PO SCH (08:32)
[2023-03-18] MEDS: DOCUSATE SODIUM 100 MG (COLACE) CAP PO SCH (08:32)
[2023-03-18] MEDS: THIAMINE INJECTION 100 MG, FOLIC ACID INJECTION 1 MG, MAGNESIUM SULFATE 2 GM, VITAMIN M... IV SCH ×5 (08:32)
[2023-03-18] MEDS: NICOTINE 21 MG (NICODERM) PATCH TD SCH (08:32)
[2023-03-18] MEDS: ENOXAPARIN 40 MG/0.4 ML (LOVENOX) SYR SC SCH (11:14)
[2023-03-18] MEDS ORDERED: OXC5T PO (11:35)
[2023-03-18] MEDS ORDERED: CITA20TA9 PO (11:35)
[2023-03-18] MEDS ORDERED: MULT-1136 PO (11:35)
[2023-03-18] MEDS ORDERED: THIA100T66 PO (11:35)
[2023-03-18] MEDS ORDERED: LISI10TA25 PO (11:35)
[2023-03-18] MEDS ORDERED: FOLI0.8C PO (11:35)
[2023-03-18] MEDS ORDERED: ONDA4TAB11 SL (11:35)
--- NOTE | 2023-03-18 11:37 | Discharge Summary ---
Discharge Summary Hospital Course Was the Problem List Reviewed?: Yes Problems/Dx: (1) Acute pancreatitis Status: Acute Qualifiers: Qualified Codes: K85.80 - Other acute pancreatitis without necrosis or infection (2) Urinary tract infection Status: Acute (3) Abdominal pain Status: Acute (4) Right sided abdominal pain Status: Acute (5) Smoker Status: Chronic Hospital Course Date of Admission: Mar 16, 2023 at 10:02 Admission Diagnosis : Family Physician/Provider: Diaz Forte MD Date of Discharge: 03/18/23 Discharge Diagnosis: [ ] Hospital Course: Patient had an uneventful hospital course after she was admitted for acute pancreatitis to the ICU and received aggressive IV fluids. UTI diagnosed placed on Rocephin and that was finished in the hospital. Her liver enzymes were much improved and trending down she had no nausea she was ambulating and she requested discharge and Dr. Alba will arrange outpatient cholecystectomy. Labs and Pending Lab Test: Laboratory Tests 03/17/23 11:43: Glucometer 251H 03/17/23 15:36: Glucometer 232H 03/17/23 20:14: Glucometer 157H 03/18/23 05:09: Glucometer 142H 03/18/23 05:22: White Blood Count 12.1H, Red Blood Count 4.70, Hemoglobin 14.3, Hematocrit 41, Mean Corpuscular Volume 88, Mean Corpuscular Hemoglobin 30, Mean Corpuscular Hemoglobin Concent 35, Red Cell Distribution Width 12.9, Platelet Count 274, Mean Platelet Volume 10.5, Immature Granulocyte % (Auto) 1, Neutrophils (%) (Auto) 84H, Lymphocytes (%) (Auto) 11L, Monocytes (%) (Auto) 5, Eosinophils (%) (Auto) 0, Basophils (%) (Auto) 0, Neutrophils # (Auto) 10.1H, Lymphocytes # (Auto) 1.3, Monocytes # (Auto) 0.6, Eosinophils # (Auto) 0.0, Basophils # (Auto) 0.0, Immature Granulocyte # (Auto) 0.1, Sodium Level 133L, Potassium Level 3.5L, Chloride Level 103, Carbon Dioxide Level 21, Anion Gap 9, Blood Urea Nitrogen 7, Creatinine 0.65, Estimat Glomerular Filtration Rate 101, BUN/Creatinine Ratio 11, Glucose Level 145H, Calcium Level 9.4, Corrected Calcium 10.0, Total Bilirubin 5.0H, Aspartate Amino Transf (AST/SGOT) 96H, Alanine Aminotransferase (ALT/SGPT) 256H, Alkaline Phosphatase 231H, Total Protein 6.4, Albumin 3.3, Lipase 144H 03/18/23 10:23: Glucometer 247H Microbiology 03/16/23 MRSA Screen - Final, Complete MRSA not isolated 03/16/23 Urine Culture - Final, Complete Escherichia coli Home Meds Active Folic Acid 0.8 Mg Capsule 0.8 Mg PO DAILY B-1 (Thiamine HCl) 100 Mg Tablet 100 Mg PO DAILY PRN Multivitamin 1 Each Tablet 1 Each PO DAILY Ondansetron Odt (Ondansetron) 4 Mg Tab.rapdis 4 Mg SL Q4H PRN Oxyir Tablet (Oxycodone HCl) 5 Mg Tab 5 Mg PO Q4HR PRN Lisinopril 10 Mg Tablet 10 Mg PO HS Citalopram HBr (Citalopram Hydrobromide) 20 Mg Tablet 20 Mg PO HS Reported Aleve (Naproxen Sodium) 220 Mg Tablet 440 Mg PO Q12H PRN Celecoxib 200 Mg Capsule 200 Mg PO HS Trulicity (Dulaglutide) 1.5 Mg/0.5 Ml Pen.injctr 1.5 Mg SQ SAT Assessment/Pt Instructions PCP in 1 week Discharge Planning: <30 minutes discharge planning Discharge Instructions Discharge Diet: Soft Diet Discharge Physical Examination Vital Signs Vital Signs Date Time Temp Pulse Resp B/P (MAP) Pulse Ox O2 Delivery O2 Flow Rate FiO2 03/18/23 08:00 Room Air 03/18/23 07:39 36.8 100 18 140/70 (93) 94 03/16/23 14:20 21 General Appearance: No Apparent Distress, WD/WN, Chronically ill Allergies: Coded Allergies: aspirin (Unverified Allergy, Mild, UPSET STOMACH, 01/24/09) codeine (Unverified Allergy, Mild, HIVES, 01/24/09) mushroom (Unverified Allergy, Unknown, 01/10/21) Pt states "deathly allergic" to mushrooms. Discharge Summary Date of Admission Mar 16, 2023 at 10:02 Date of Discharge Discharge Date: Mar 18, 2023 Admission Diagnosis Assessment: Acute pancreatitis Meth use UTI History of alcohol use Smoker Dehydration Plan: Pain medication IV fluids Supportive care ICU Discharge Diagnosis Assessment: Acute pancreatitis Meth use UTI History of alcohol use Smoker Dehydration Plan: Pain medication IV fluids Supportive care EDDIE CHAND DO Mar 18, 2023 11:37
[2023-03-18 11:53] VITALS: BP 177/83
--- NOTE | 2023-03-18 12:16 | Progress Note - Surgery ---
Subjective Date Seen by a Provider: Mar 18, 2023 Time Seen by a Provider: 12:16 Subjective/Events-last exam Feeling better. Minimal abdominal pain. Wanting to go home. Tolerating diet. Denies n/v fever sweats chills shortness of breath or chest pain. Focused Exam Lactate Level 03/16/23 08:05: Lactic Acid Level 2.05*H 03/16/23 09:58: Lactic Acid Level 0.96 Objective Exam Vital Signs Date Time Temp Pulse Resp B/P (MAP) Pulse Ox O2 Delivery O2 Flow Rate FiO2 03/18/23 11:53 37.2 106 18 177/83 (114) 94 Room Air 03/18/23 08:00 Room Air 03/18/23 07:39 36.8 100 18 140/70 (93) 94 Room Air 03/18/23 07:00 110 03/18/23 03:14 37.3 104 20 177/85 (115) 94 Room Air 03/18/23 01:00 95 03/17/23 23:16 37.7 110 20 153/72 (99) 93 Room Air 03/17/23 21:00 98 Room Air 03/17/23 19:40 37.2 101 18 184/88 (120) 94 Room Air 03/17/23 19:00 92 03/17/23 16:19 36.7 100 18 169/83 (111) 95 Room Air 03/17/23 14:03 36.7 95 18 170/81 (110) 95 Room Air 03/17/23 13:00 93 I & O 03/18/23 07:00 Intake Total 1690 ml Output Total 850 ml Balance 840 ml Capillary Refill : Less Than 3 Seconds General Appearance: No Apparent Distress, WD/WN, Chronically ill HEENT: PERRL/EOMI, Normal ENT Inspection, Pharynx Normal, Moist Mucous M embranes Neck: Full Range of Motion, Normal Inspection, Non Tender Respiratory: Chest Non Tender, No Accessory Muscle Use, No Respiratory Distress Cardiovascular: Regular Rate, Rhythm, No JVD Gastrointestinal: soft, tenderness (epigastric, minimal) Extremity: Normal Capillary Refill, Normal Inspection, Normal Range of Motion, Non Tender, No Calf Tenderness, No Pedal Edema Neurologic/Psychiatric: Alert, Oriented x3, No Motor/Sensory Deficits, Normal Mood/Affect Skin: Normal Color, Warm/Dry Lymphatic: No Adenopathy Results Lab Laboratory Tests 03/17/23 15:36: Glucometer 232H 03/17/23 20:14: Glucometer 157H 03/18/23 05:09: Glucometer 142H 03/18/23 05:22: White Blood Count 12.1H, Red Blood Count 4.70, Hemoglobin 14.3, Hematocrit 41, Mean Corpuscular Volume 88, Mean Corpuscular Hemoglobin 30, Mean Corpuscular He moglobin Concent 35, Red Cell Distribution Width 12.9, Platelet Count 274, Mean Platelet Volume 10.5, Immature Granulocyte % (Auto) 1, Neutrophils (%) (Auto) 84H, Lymphocytes (%) (Auto) 11L, Monocytes (%) (Auto) 5, Eosinophils (%) (Auto) 0, Basophils (%) (Auto) 0, Neutrophils # (Auto) 10.1H, Lymphocytes # (Auto) 1.3, Monocytes # (Auto) 0.6, Eosinophils # (Auto) 0.0, Basophils # (Auto) 0.0, Immature Granulocyte # (Auto) 0.1, Sodium Level 133L, Potassium Level 3.5L, Chloride Level 103, Carbon Dioxide Level 21, Anion Gap 9, Blood Urea Nitrogen 7, Creatinine 0.65, Estimat Glomerular Filtration Rate 101, BUN/Creatinine Ratio 11, Glucose Level 145H, Calcium Level 9.4, Corrected Calcium 10.0, Total Bilirubin 5.0H, Aspartate Amino Transf (AST/SGOT) 96H, Alanine Aminotransferase (ALT/SGPT) 256H, Alkaline Phosphatase 231H, Total Protein 6.4, Albumin 3.3, Lipase 144H 03/18/23 10:23: Glucometer 247H Microbiology 03/16/23 MRSA Screen - Final, Complete MRSA not isolated 03/16/23 Urine Culture - Final, Complete Escherichia coli Assessment/Plan Assessment/Plan Assessment/Plan epigastric pain pancreatitis substance use cholelithiasis had u/s done which demonstrates cholelithiasis would recommend having it removed in near future as this could be the cause of pancreatitis First needs to get over the pancreatitis first. diet as tolerates likely home today with outpatient follow up TOMER DE LA CRUZ DO Mar 18, 2023 12:16
[2023-03-18 13:00] VITALS: BP 177/83
== END 2023-03-18 13:15 | disposition home or self-care (01) | DRG 439 ==
LOC: EDUNIT# 07:42 → ER 07:45 → ICU 10:02 → 4TH 03-17 13:00
PROVIDERS: ADMIT Internal Medicine; ATTEND Internal Medicine
DX: K85.90 Acute pancreatitis without necrosis or infection, unspecified (principal); N39.0 Urinary tract infection, site not specified; F15.90 Other stimulant use, unspecified, uncomplicated; E86.0 Dehydration; I10 Essential (primary) hypertension; K80.20 Calculus of gallbladder without cholecystitis without obstruction; E11.9 Type 2 diabetes mellitus without complications; F17.210 Nicotine dependence, cigarettes, uncomplicated; Z85.41 Personal history of malignant neoplasm of cervix uteri
CPT/HCPCS: 36415; 71045; 74177; 76705; 80053; 80306; 80320; 81000; 82947; 83605; 83615; 83690; 83735; 84100; 84478; 85025; 85610; 85730; 86706; 86709; 86803; 87081; 87088; 87186; 94760; 94761